=== PATIENT | female | born 1930 | race Caucasian/White ===

== ENCOUNTER 2016-12-25 13:26 | Inpatient (IN) | payer MEDICARE, BC ==
[2016-12-25] MEDS ORDERED: ACETAMINOPHEN TAB 325 MG TAB PO STA (14:19)
[2016-12-25] MEDS ORDERED: SODIUM CHLORIDE 0.9% 1,000 ML IV STA (14:19)
[2016-12-25] MEDS ORDERED: IPRATROPIUM-ALBUTEROL 3 ML NEB INHALATION STA (14:21)
[2016-12-25] MEDS ORDERED: methylPREDNISolone SOD SUCCI 125 MG/2 ML VIAL IV STA (14:21)
[2016-12-25 14:57] LABS: Appearance,Urine Cloudy (Clear); Bacteria,Urine Rare /hpf; Bilirubin,Urine Negative (Negative); Glucose,Urine (UA) Negative (Negative); Ketones,Urine 2+ (Negative); Leukocyte Esterase,Urine Large (Negative); Mucus,Urine Occasional /hpf; Nitrite,Urine Negative (Negative); Particle Count 9948; Protein,Urine 2+ (Negative); RBC,Urine 12 /hpf (0-5); Specific Gravity,Urine 1.019 (1.001-1.035); Squamous Epithelial Cell,Urine 6 /hpf (0-4); UA Billing (MACRO vs. MICRO) MICRO; Urobilinogen,Urine <2.0 mg/dL (<2.0); WBC,Urine 16 /hpf (0-5)
--- NOTE | 2016-12-25 15:03 | ED ---
Fever HPI - General Chief Complaint: Fever Stated Complaint: sore throat/cough Time Seen by Provider: 12/25/16 13:39 Source: patient, family Mode of arrival: wheelchair Limitations: no limitations - History of Present Illness Initial Comments: 86-year-old female with a past medical history of Atrial fibrillation , coronary artery disease, breast cancer, DM, HLD, HTN, pacemaker placement presenting for evaluation of fever and shortness of breath that started yesterday. She states that she was evaluated at [facility] for sore throat related a strep swab which was negative and discharged home. This morning she woke up and had worsening shortness of breath with the productive cough of yellow sputum and chest discomfort from all the coughing. She is feeling weak all over as well and her daughter states that she became very concerned and brought her to the ED for further evaluation. She had also been febrile at home although they did not take any temperature - Related Data Home Medications Medication Instructions Recorded Confirmed Montelukast [Singulair] 10 mg PO DAILY 09/01/15 12/25/16 sitaGLIPtin PHOS/metFORMIN HCL 1 tab PO BID 09/01/15 12/25/16 [Janumet 50-500 mg Tablet] Melatonin 10 mg PO HS 10/07/16 12/25/16 Benzonatate [Tessalon Perles] 100 mg PO TID PRN 12/25/16 12/25/16 Clindamycin [Cleocin] 150 mg PO QID 12/25/16 12/25/16 Previous Rx's Medication Instructions Recorded Acetaminophen Tab [Tylenol] 650 mg PO Q6HR PRN #0 tab 10/12/16 Lisinopril [Prinivil] 10 mg PO DAILY #30 tab 10/12/16 Pravastatin Sodium [Pravachol] 20 mg PO DAILY #30 tab 10/12/16 Warfarin [Coumadin] 5 mg PO DAILY #30 tab 10/12/16 Allergies Allergy/AdvReac Type Severity Reaction Status Date / Time Penicillins Allergy Swelling Verified 12/25/16 14:06 Review of Systems ROS Statement: Those systems with pertinent positive or pertinent negative responses have been documented in the HPI. ROS Other: All systems not noted in ROS Statement are negative. Constitutional: Reports: fever, chills, weakness Eyes: Denies: eye discharge, vision change ENT: Reports: throat pain. Denies: ear pain, dental pain, epistaxis Respiratory: Reports: cough, dyspnea, wheezes Cardiovascular: Reports: chest pain, dyspnea on exertion. Denies: palpitations , orthopnea, edema Gastrointestinal: Denies: abdominal pain, nausea, vomiting, diarrhea, constipation Genitourinary: Denies: urgency, dysuria Musculoskeletal: Reports: myalgia. Denies: joint swelling Skin: Denies: rash, lesions, change in color Neurological: Reports: weakness. 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 pt reports she pushes it up herself. breast ca History of Any Multi-Drug Resistant Organisms: None Reported Past Surgical History: Appendectomy, Breast Surgery, Cholecystectomy, Hysterectomy, Pacemaker Past Anesthesia/Blood Transfusion Reactions: No Reported Reaction Past Psychological History: No Psychological Hx Reported Smoking Status: Never smoker Past Alcohol Use History: None Reported Past Drug Use History: None Reported - Past Family History Father Family Medical History: Unable to Obtain Mother History Unknown: Yes General Exam Limitations: no limitations General appearance: alert, in distress Head exam: Present: atraumatic, normocephalic Eye exam: Present: normal appearance, PERRL Pupils: Absent: unequal ENT exam: Present: mucous membranes dry. Absent: mucous membranes moist Neck exam: Present: normal inspection. Absent: tenderness, meningismus Respiratory exam: Present: rhonchi, accessory muscle use, decreased breath sounds. Absent: normal lung sounds bilaterally, chest wall tenderness Cardiovascular Exam: Present: tachycardia, S3, S4 GI/Abdominal exam: Present: soft. Absent: distended, tenderness, guarding Rectal exam: Present: deferred Extremities exam: Present: normal inspection, full ROM. Absent: tenderness Back exam: Present: normal inspection, full ROM. Absent: tenderness, CVA tenderness (R) Neurological exam: Present: alert, altered, oriented X3 Course Vital Signs 12/25/16 12/25/16 12/25/16 13:32 15:13 16:57 Temperature 102.5 F H Pulse Rate 115 H 122 H 115 H Respiratory 18 20 Rate Blood Pressure 181/85 145/66 O2 Sat by Pulse 91 L 94 L Oximetry 12/25/16 17:45 Temperature 100.3 F H Pulse Rate Respiratory Rate Blood Pressure O2 Sat by Pulse Oximetry Medical Decision Making - Medical Decision Making 86-year-old female presented for evaluation of shortness of breath productive cough of yellow sputum and generalized weakness since yesterday that is progressively worsened. On physical examination she is breathing with accessory muscle use and there are audible rhonchi. She denies any history of congestive heart failure and states that her fever has been markedly elevated. Given her symptoms of productive cough, shortness of breath, fever, tachycardia , and myalgias concern for pneumonia with sepsis is very high. We'll obtain labs, EKG, chest x-ray, and provide IV fluids, breathing treatments, steroids. We'll also send blood cultures and if confirmed with chest x-ray start antibiotics. Workup significant for left lower lobe pneumonia and urinary tract infection with associated leukocytosis. The patient has an ALLERGY to penicillins and will therefore be started on levofloxacin as this is a community-acquired pneumonia and she has no risk factors for hospital-acquired pneumonia. We'll continue IV fluid resuscitation although her lactic acid is within normal limits. Patient reevaluated and had marketed improvement in heart rate, respiratory status, and temperature. Dr. Villasenor updated on the status of the patient and accepted the admission without request for consults. Admission order placed in bed request submitted. - Lab Data Result diagrams: 12/25/16 15:34 12/25/16 15:34 Lab Results 12/25/16 12/25/16 12/25/16 Range/Units 14:42 15:15 15:15 WBC (3.8-10.6) k/uL RBC (3.80-5.40) m/uL Hgb (11.4-16.0) gm/dL Hct (34.0-46.0) % MCV (80.0-100.0) fL MCH (25.0-35.0) pg MCHC (31.0-37.0) g/dL RDW (11.5-15.5) % Plt Count (150-450) k/uL Neutrophils % % Lymphocytes % % Monocytes % % Eosinophils % % Basophils % % Neutrophils # (1.3-7.7) k/uL Lymphocytes # (1.0-4.8) k/uL Monocytes # (0-1.0) k/uL Eosinophils # (0-0.7) k/uL Basophils # (0-0.2) k/uL Sodium (137-145) mmol/L Potassium (3.5-5.1) mmol/L Chloride (98-107) mmol/L Carbon Dioxide (22-30) mmol/L Anion Gap mmol/L BUN (7-17) mg/dL Creatinine (0.52-1.04) mg/dL Est GFR (MDRD) Af Amer (>60 ml/min/1.73 sqM) Est GFR (MDRD) Non-Af (>60 ml/min/1.73 sqM) Glucose (74-99) mg/dL Plasma Lactic Acid Krishan (0.7-2.0) mmol/L Calcium (8.4-10.2) mg/dL Total Bilirubin (0.2-1.3) mg/dL AST (14-36) U/L ALT (9-52) U/L Alkaline Phosphatase (38-126) U/L Troponin I (0.000-0.034) ng/mL NT-Pro-B Natriuret Pep pg/mL Total Protein (6.3-8.2) g/dL Albumin (3.5-5.0) g/dL Urine Color Yellow Urine Appearance Cloudy H (Clear) Urine pH 5.0 (5.0-8.0) Ur Specific Baldwin 1.019 (1.001-1.035) Urine Protein 2+ H (Negative) Urine Glucose (UA) Negative (Negative) Urine Ketones 2+ H (Negative) Urine Blood Moderate H (Negative) Urine Nitrate Negative (Negative) Urine Bilirubin Negative (Negative) Urine Urobilinogen <2.0 (<2.0) mg/dL Ur Leukocyte Esterase Large H (Negative) Urine RBC 12 H (0-5) /hpf Urine WBC 16 H (0-5) /hpf Ur Squamous Epith Cells 6 H (0-4) /hpf Urine Bacteria Rare H (None) /hpf Urine Mucus Occasional H (None) /hpf Influenza Type A RNA Not Detected (Not Detectd) Influenza Type B (PCR) Not Detected (Not Detectd) Group A Strep Rapid Negative (Negative) 12/25/16 12/25/16 12/25/16 Range/Units 15:34 15:34 15:34 WBC 16.2 H (3.8-10.6) k/uL RBC 4.58 (3.80-5.40) m/uL Hgb 13.7 (11.4-16.0) gm/dL Hct 41.1 (34.0-46.0) % MCV 89.8 (80.0-100.0) fL MCH 30.0 (25.0-35.0) pg MCHC 33.4 (31.0-37.0) g/dL RDW 13.8 (11.5-15.5) % Plt Count 176 (150-450) k/uL Neutrophils % 90 % Lymphocytes % 5 % Monocytes % 4 % Eosinophils % 0 % Basophils % 0 % Neutrophils # 14.5 H (1.3-7.7) k/uL Lymphocytes # 0.8 L (1.0-4.8) k/uL Monocytes # 0.7 (0-1.0) k/uL Eosinophils # 0.0 (0-0.7) k/uL Basophils # 0.1 (0-0.2) k/uL Sodium 136 L (137-145) mmol/L Potassium 4.0 (3.5-5.1) mmol/L Chloride 102 (98-107) mmol/L Carbon Dioxide 18 L (22-30) mmol/L Anion Gap 16 mmol/L BUN 19 H (7-17) mg/dL Creatinine 0.83 (0.52-1.04) mg/dL Est GFR (MDRD) Af Amer >60 (>60 ml/min/1.73 sqM) Est GFR (MDRD) Non-Af >60 (>60 ml/min/1.73 sqM) Glucose 193 H (74-99) mg/dL Plasma Lactic Acid Krishan 1.6 (0.7-2.0) mmol/L Calcium 8.7 (8.4-10.2) mg/dL Total Bilirubin 2.1 H (0.2-1.3) mg/dL AST 20 (14-36) U/L ALT 33 (9-52) U/L Alkaline Phosphatase 87 (38-126) U/L Troponin I (0.000-0.034) ng/mL NT-Pro-B Natriuret Pep pg/mL Total Protein 6.7 (6.3-8.2) g/dL Albumin 3.9 (3.5-5.0) g/dL Urine Color Urine Appearance (Clear) Urine pH (5.0-8.0) Ur Specific Baldwin (1.001-1.035) Urine Protein (Negative) Urine Glucose (UA) (Negative) Urine Ketones (Negative) Urine Blood (Negative) Urine Nitrate (Negative) Urine Bilirubin (Negative) Urine Urobilinogen (<2.0) mg/dL Ur Leukocyte Esterase (Negative) Urine RBC (0-5) /hpf Urine WBC (0-5) /hpf Ur Squamous Epith Cells (0-4) /hpf Urine Bacteria (None) /hpf Urine Mucus (None) /hpf Influenza Type A RNA (Not Detectd) Influenza Type B (PCR) (Not Detectd) Group A Strep Rapid (Negative) 12/25/16 12/25/16 Range/Units 15:34 15:34 WBC (3.8-10.6) k/uL RBC (3.80-5.40) m/uL Hgb (11.4-16.0) gm/dL Hct (34.0-46.0) % MCV (80.0-100.0) fL MCH (25.0-35.0) pg MCHC (31.0-37.0) g/dL RDW (11.5-15.5) % Plt Count (150-450) k/uL Neutrophils % % Lymphocytes % % Monocytes % % Eosinophils % % Basophils % % Neutrophils # (1.3-7.7) k/uL Lymphocytes # (1.0-4.8) k/uL Monocytes # (0-1.0) k/uL Eosinophils # (0-0.7) k/uL Basophils # (0-0.2) k/uL Sodium (137-145) mmol/L Potassium (3.5-5.1) mmol/L Chloride (98-107) mmol/L Carbon Dioxide (22-30) mmol/L Anion Gap mmol/L BUN (7-17) mg/dL Creatinine (0.52-1.04) mg/dL Est GFR (MDRD) Af Amer (>60 ml/min/1.73 sqM) Est GFR (MDRD) Non-Af (>60 ml/min/1.73 sqM) Glucose (74-99) mg/dL Plasma Lactic Acid Krishan (0.7-2.0) mmol/L Calcium (8.4-10.2) mg/dL Total Bilirubin (0.2-1.3) mg/dL AST (14-36) U/L ALT (9-52) U/L Alkaline Phosphatase (38-126) U/L Troponin I 0.015 (0.000-0.034) ng/mL NT-Pro-B Natriuret Pep 1010 pg/mL Total Protein (6.3-8.2) g/dL Albumin (3.5-5.0) g/dL Urine Color Urine Appearance (Clear) Urine pH (5.0-8.0) Ur Specific Baldwin (1.001-1.035) Urine Protein (Negative) Urine Glucose (UA) (Negative) Urine Ketones (Negative) Urine Blood (Negative) Urine Nitrate (Negative) Urine Bilirubin (Negative) Urine Urobilinogen (<2.0) mg/dL Ur Leukocyte Esterase (Negative) Urine RBC (0-5) /hpf Urine WBC (0-5) /hpf Ur Squamous Epith Cells (0-4) /hpf Urine Bacteria (None) /hpf Urine Mucus (None) /hpf Influenza Type A RNA (Not Detectd) Influenza Type B (PCR) (Not Detectd) Group A Strep Rapid (Negative) 12/25/16 15:25 EKG shows a 2 fibrillation with RVR and a rate of 113 bpm, QRS 68, QT/QTC 292/ 400. Disposition Clinical Impression: Community acquired pneumonia, UTI (urinary tract infection), Hyponatremia Disposition: ADMITTED IP TO THIS [facility] Referrals: To Sibley MD [Primary Care Provider] - 1-2 days Decision to Admit Reason: Admit from EC Decision Date: 12/25/16 Decision Time: 17:33
[2016-12-25 15:49] LABS: Basophils # (A) 0.1 k/uL (0-0.2); Basophils % (A) 0 %; CH 30.5; CHCM 34.2; Eosinophils % (A) 0 %; HCT 41.1 % (34.0-46.0); HDW 2.81; HGB 13.7 gm/dL (11.4-16.0); Luc # (Auto) 0.13; Luc % (Auto) 1; Lymphocytes # (A) 0.8 k/uL (1.0-4.8); Lymphocytes % (A) 5 %; MCHC 33.4 g/dL (31.0-37.0); MCV 89.8 fL (80.0-100.0); Mean Platelet Volume 8.7; Monocytes # (A) 0.7 k/uL (0-1.0); Monocytes % (A) 4 %; Neutrophils # (A) 14.5 k/uL (1.3-7.7); Neutrophils % (A) 90 %; RBC 4.58 m/uL (3.80-5.40); RDW 13.8 % (11.5-15.5); WBC 16.2 k/uL (3.8-10.6); WBC (Perox) 17.27
[2016-12-25 16:10] LABS: ALT 33 U/L (9-52); AST 20 U/L (14-36); Alkaline Phosphatase 87 U/L (38-126); Anion Gap 16 mmol/L; Blood Urea Nitrogen 19 mg/dL (7-17); Calcium 8.7 mg/dL (8.4-10.2); Carbon Dioxide 18 mmol/L (22-30); Chloride 102 mmol/L (98-107); Glucose 193 mg/dL (74-99); Non-African American GFR(MDRD) >60 (>60 ml/min/1.73 sqM); Sodium 136 mmol/L (137-145); Total Bilirubin 2.1 mg/dL (0.2-1.3); Total Protein 6.7 g/dL (6.3-8.2)
--- NOTE | 2016-12-25 16:14 | XR ---
EXAMINATION TYPE: XR chest 2V DATE OF EXAM: 12/25/2016 4:05 PM COMPARISON: 10/11/2016 HISTORY: Fever and shortness of breath TECHNIQUE: Frontal and lateral views of the chest are obtained. FINDINGS: Heart is enlarged. There is no gross heart failure. There is probably infiltrate in the le ft lower lobe behind the heart. Left axillary pacemaker is noted. There is no pleural effusion. There are no hilar masses. Thoracic aorta is atheromatous. IMPRESSION: No gross heart failure. Cardiomegaly. There is improved aeration of the lungs overall co mpared to last exam but evidence of a new mild pneumonia in the left lower lobe compared to old exam.
[2016-12-25] MEDS ORDERED: IV VANCOMYCIN PER PHARMACY 1 EACH MISC MISCELLANE PRN (16:23)
[2016-12-25] MEDS ORDERED: AZTREONAM 2 GM in SODIUM CHLORIDE 0.9% 100 ML IVPB STA (16:24)
[2016-12-25] MEDS ORDERED: LEVOFLOXACIN 750MG-D5W PMX 750 MG in DEXTROSE/WATER 1 150ML.BAG IVPB STA (16:28)
[2016-12-25] MEDS ORDERED: ONDANSETRON 4 MG/2 ML VIAL IVP PRN (16:35)
[2016-12-25] MEDS ORDERED: NALOXONE 0.4 MG/ML 1 ML VIAL IV PRN (16:35)
[2016-12-25] MEDS ORDERED: KETOROLAC 30 MG/ML 1 ML VIAL IVP PRN (16:35)
[2016-12-25] MEDS: SODIUM CHLORIDE 0.9% 1,000 ML IV SCH (16:57)
[2016-12-25] MEDS: MELATONIN 5 MG TABLET PO SCH (22:43)
[2016-12-25 23:43] LABS: Glucose,Whole Blood 233 mg/dL (75-99)
[2016-12-25] MEDS: INSULIN LISPRO (humaLOG) 300 UNIT/3 ML VIAL SQ SCH (23:52)
[2016-12-26] MEDS: ACETAMINOPHEN TAB 325 MG TAB PO PRN (05:02)
[2016-12-26] MEDS: SODIUM CHLORIDE 0.9% 1,000 ML IV SCH ×2 (05:03→08:16)
[2016-12-26 06:22] LABS: Glucose,Whole Blood 189 mg/dL (75-99)
[2016-12-26] MEDS: metFORMIN 500 MG TAB PO SCH ×2 (06:35→17:09)
[2016-12-26] MEDS: INSULIN LISPRO (humaLOG) 300 UNIT/3 ML VIAL SQ SCH ×4 (06:35→21:01)
[2016-12-26 06:42] LABS: CH 30.5; CHCM 34.2; HCT 39.2 % (34.0-46.0); HDW 2.81; HGB 12.8 gm/dL (11.4-16.0); Immature Gran Flag Marked; MCH 29.3 pg (25.0-35.0); MCHC 32.6 g/dL (31.0-37.0); MCV 89.8 fL (80.0-100.0); Mean Platelet Volume 9.7; RBC 4.37 m/uL (3.80-5.40); RDW 13.8 % (11.5-15.5); WBC (Perox) 13.94
[2016-12-26 06:57] LABS: Anion Gap 14 mmol/L; Blood Urea Nitrogen 17 mg/dL (7-17); Calcium 8.6 mg/dL (8.4-10.2); Carbon Dioxide 19 mmol/L (22-30); Chloride 107 mmol/L (98-107); Glucose 201 mg/dL (74-99); Magnesium 1.5 mg/dL (1.6-2.3); Non-African American GFR(MDRD) >60 (>60 ml/min/1.73 sqM); Phosphorous 2.6 mg/dL (2.5-4.5); Sodium 140 mmol/L (137-145)
[2016-12-26 07:09] LABS: INR 4.9 (<1.1); Prothrombin Time 48.9 sec (9.0-12.0)
--- NOTE | 2016-12-26 08:01 | XR ---
EXAMINATION TYPE: XR chest 2V DATE OF EXAM: 12/26/2016 7:06 AM COMPARISON: 12/25/2016 HISTORY: Cough and congestion FINDINGS: Cardiomegaly and cardiac device with atherosclerotic change aorta. There is a 1 cm area of pulmonary nodularity in today's exam which may be related to superimposed structures given not seen on the exam yesterday. Follow up on short-term x-ray. No priors be subsegmental changes along the medial aspect right lung base. IMPRESSION: 1. COPD cardiomegaly with subsegmental basilar changes. Atelectasis is favored over pneumonia correla te clinically. 2. There appears to be a 1 cm irregular nodule adjacent to the right chest lead. This was not present on yesterday's exam and May BE related to superimposed structures or related to chest lesion. Anne talavera, follow-up PA and lateral views the chest recommended.
[2016-12-26] MEDS: PRAVASTATIN SODIUM 20 MG TAB PO SCH (08:16)
[2016-12-26] MEDS: LINAGLIPTIN 5 MG TABLET PO SCH (08:16)
[2016-12-26] MEDS: MONTELUKAST 10 MG TAB PO SCH (08:16)
[2016-12-26] MEDS: LISINOPRIL 10 MG TAB PO SCH (08:16)
[2016-12-26] MEDS ORDERED: FUROSEMIDE 10 MG/ML 4 ML VIAL IV STA (08:28)
[2016-12-26] MEDS ORDERED: Magnesium Replacement Protocol 1 EACH MISC MISCELLANE PRN (08:29)
[2016-12-26] MEDS: MAGNESIUM SULFATE-D5W PMX 1 GM in DEXTROSE/WATER 1 100ML.BAG IVPB SCH ×2 (10:07→11:15)
[2016-12-26 10:43] LABS: Add Differential Manual Differential
[2016-12-26 10:46] LABS: Band Neutrophils % 19.5 %; Nucleated Red Blood Cells 0 /100 WBC (0-0); RBC Morphology Normal; Total Cells Counted 200
[2016-12-26] MEDS: IPRATROPIUM-ALBUTEROL 3 ML NEB INHALATION SCH ×4 (11:39→23:43)
[2016-12-26 12:07] LABS: Glucose,Whole Blood 184 mg/dL (75-99)
[2016-12-26 12:45] LABS: Hemoglobin A1C 6.1 % (4.2-6.1)
[2016-12-26] MEDS: LEVOFLOXACIN 750MG-D5W PMX 750 MG in DEXTROSE/WATER 1 150ML.BAG IVPB SCH (16:05)
[2016-12-26 17:04] LABS: Glucose,Whole Blood 173 mg/dL (75-99)
[2016-12-26] MEDS ORDERED: RX INFO: IV CONTRAST WAS GIVEN 1 EACH MISC MISCELLANE PRN (19:31)
--- NOTE | 2016-12-26 20:12 | CT ---
EXAMINATION TYPE: CT chest w con DATE OF EXAM: 12/26/2016 8:03 PM COMPARISON: NONE HISTORY: Patient complains of difficulty breathing, pneumonia, and productive cough. CT DLP: 135.5 mGycm Automated exposure control for dose reduction was used. CONTRAST: CT scan of the chest is performed with IV Contrast, patient injected with 100 mL of Omnipaque 300. FINDINGS: There is patchy interstitial infiltrate in the mid and lower lung monzon. There is some coalescent in filtrate at the posterior lung bases. There is no pleural effusion. There is no evidence of a pulmona ry mass. The heart is enlarged. Thoracic aorta is atheromatous. There are no hilar masses. There is n o mediastinal adenopathy. There is no pericardial effusion. There is probably a small hiatal hernia. I see no filling defect in the pulmonary arteries. There is no evidence of aortic aneurysm. There is 10% wedging of T4 vertebra that is probably old. IMPRESSION: Cardiomegaly. Patchy pneumonic infiltrates in the mid and lower lung monzon and worse at the lung bases are consistent with pneumonia. I do not see pleural fluid to suggest heart failure. A therosclerotic vascular disease.
[2016-12-26] MEDS: MELATONIN 5 MG TABLET PO SCH (20:39)
[2016-12-26] MEDS: FUROSEMIDE 10 MG/ML 2 ML VIAL IV SCH (20:41)
[2016-12-26] MEDS: methylPREDNISolone SOD SUCCI 40 MG/ML 1 ML VIAL IV SCH (20:41)
[2016-12-26 21:01] LABS: Glucose,Whole Blood 95 mg/dL (75-99)
[2016-12-27] MEDS: IPRATROPIUM-ALBUTEROL 3 ML NEB INHALATION SCH ×5 (03:36→21:27)
[2016-12-27 03:47] LABS: INR 3.6 (<1.1); Prothrombin Time 34.9 sec (9.0-12.0)
[2016-12-27 03:50] LABS: Calcium 9.1 mg/dL (8.4-10.2); Magnesium 1.9 mg/dL (1.6-2.3); Potassium 3.9 mmol/L (3.5-5.1); Total Bilirubin 1.9 mg/dL (0.2-1.3); Total Protein 6.5 g/dL (6.3-8.2)
[2016-12-27 03:53] LABS: Basophils % (A) 0 %; CH 29.9; CHCM 33.1; Eosinophils % (A) 0 %; HCT 39.6 % (34.0-46.0); HDW 2.67; HGB 12.9 gm/dL (11.4-16.0); Luc # (Auto) 0.07; Luc % (Auto) 1; Lymphocytes # (A) 0.2 k/uL (1.0-4.8); Lymphocytes % (A) 2 %; MCH 29.6 pg (25.0-35.0); MCHC 32.5 g/dL (31.0-37.0); MCV 90.8 fL (80.0-100.0); Mean Platelet Volume 9.1; Monocytes # (A) 0.4 k/uL (0-1.0); Monocytes % (A) 4 %; Neutrophils # (A) 10.7 k/uL (1.3-7.7); Neutrophils % (A) 93 %; RBC 4.36 m/uL (3.80-5.40); RDW 13.7 % (11.5-15.5); WBC 11.5 k/uL (3.8-10.6); WBC (Perox) 11.55
[2016-12-27] MEDS ORDERED: VERAPAMIL 40 MG TAB PO STA (05:05)
[2016-12-27] MEDS ORDERED: VERAPAMIL SR 120 MG TABLET.ER PO STA (05:12)
[2016-12-27] MEDS ORDERED: DILTIAZEM 125 MG in SODIUM CHLORIDE 0.9% 100 ML IV SCH (05:15)
[2016-12-27] MEDS: metFORMIN 500 MG TAB PO SCH ×2 (06:13→17:08)
[2016-12-27] MEDS: INSULIN LISPRO (humaLOG) 300 UNIT/3 ML VIAL SQ SCH ×4 (06:13→21:37)
[2016-12-27 06:30] LABS: Glucose,Whole Blood 243 mg/dL (75-99)
[2016-12-27] MEDS ORDERED: AZITHROMYCIN 500 MG in SODIUM CHLORIDE 0.9% 250 ML IVPB SCH (09:00)
--- NOTE | 2016-12-27 09:16 | HP ---
DATE OF ADMISSION: 12/25/16. CHIEF COMPLAINT: 86 year old white female with fever, sore throat, cough, shortness of breath and urinary tract infection. HISTORY OF PRESENT ILLNESS: This an 86-year-old female with a past medical history of atrial fibrillation, coronary disease, breast cancer, diabetes mellitus, hypertension, pacemaker placement, presenting with evaluation of fever, shortness of breath, saw [facility] sent home on antibiotics. She came in shortness of breath with yellow sputum and coughing, suspect severe pneumonia and chronic obstructive pulmonary disease exacerbation. Also found to have abnormal UA and has a urinary tract infection. MEDICATIONS INCLUDE: Singulair 10 mg daily. Janumet 50/500 b.i.d., melatonin 10 daily. Tessalon Perles t.i.d., Cleocin 150 q.i.d. Prinivil 10 mg daily. Pravastatin 20 daily. Coumadin 5 daily. Acetaminophen 650 q 6 hours p.r.n. ALLERGIES: PENICILLIN. REVIEW OF SYSTEMS: Negative except for cough and congestion, shortness of breath. VASCULAR: Negative. IMMUNE: Negative. INTEGUMENT: Negative. : As mentioned, dysuria, frequency, urgency. HEMATOLOGIC: Negative. Immune: Negative. PAST MEDICAL HISTORY: Atrial fibrillation, coronary artery disease, cancer, diabetes mellitus, dyslipidemia, hypertension, prolapse of the vagina, history of breast cancer. SURGERY: Appendectomy. Breast surgery, cholecystectomy, hysterectomy, pacemaker. FAMILY HISTORY: Father difficult to obtain. Mother is negative. PHYSICAL EXAMINATION: She is an 86-year-old white female temperature 102.5, pulse is 115 to 122 respiratory rate 18 to 20, and blood pressure 140s to 180s/60s to 80s. O2 of 94 to 91% on 2 liters. HEENT: Normocephalic, atraumatic. Ophthalmologic: Pupils equal, round and reactive to light and accommodation. NECK: Normal inspection. RESPIRATORY: Scattered rhonchi and wheeze. Moderate accessory muscle use, audible congestion in her throat. . HEART: Tachycardia, S1, S2, No S3, S4. GI: Soft. Mild tenderness in the lower quadrants. No mass no guarding. BACK: Normal range of motion, kyphotic lordotic spine, CVA tenderness in the right. NEUROLOGIC: Alert and oriented x3. MUSCULOSKELETAL: Ambulating to the bathroom . DIAGNOSIS: 1. Suspect acute chronic obstructive pulmonary disease exacerbation. 2. Acute tracheobronchitis. 3. Possible acute exacerbation diastolic congestive heart failure. 4. Echo and CAT scan of the chest have been ordered, pneumonia with sepsis is a likely diagnosis. 5. Urinary tract infection. 6. Hyponatremia. IV fluids IV steroids, IV antibiotics. CAT scan of the chest ordered, updrafts are ordered, cardiology consult is pending.
[2016-12-27] MEDS: MONTELUKAST 10 MG TAB PO SCH (09:27)
[2016-12-27] MEDS: LISINOPRIL 10 MG TAB PO SCH (09:27)
[2016-12-27] MEDS: PRAVASTATIN SODIUM 20 MG TAB PO SCH (09:27)
[2016-12-27] MEDS: LINAGLIPTIN 5 MG TABLET PO SCH (09:28)
[2016-12-27] MEDS: methylPREDNISolone SOD SUCCI 40 MG/ML 1 ML VIAL IV SCH ×2 (09:28→17:08)
[2016-12-27] MEDS: FUROSEMIDE 10 MG/ML 2 ML VIAL IV SCH (09:28)
--- NOTE | 2016-12-27 10:45 | P.CRDCN ---
<Adali Salvdaor E - Last Filed: 12/27/16 10:45> History of Present Illness Consult date: 12/27/16 Requesting physician: To Sibley Consult reason: atrial fibrillation Chief complaint: Shortness of breath and cough History of present illness: This is a pleasant 86-year-old female who follows regularly with Dr. Juarez in the office. She has a known history of hypertension, hyperlipidemia, diabetes, chronic persistent atrial fibrillation, on Coumadin for anticoagulation, asthma, he presented to the hospital with symptoms of shortness of breath with associated productive cough of yellow sputum. Currently being treated for tracheobronchitis and possible pneumonia. Cardiology consultation was requested because of atrial fibrillation. EKG on arrival showed atrial fibrillation with a rapid ventricular response. Chest x- ray did not reveal any evidence of congestive heart failure. There is evidence of a new mild pneumonia in the left lower lobe. Patient was initiated on IV Cardizem in the emergency room, she is also currently on IV antibiotics. Laboratory data, WBC on admission 16.2, INR on admission 4.9, 3.6 this morning. D-dimer elevated at 1.9, CT of the chest negative for PE. Sodium 136, potassium 4.0, BUN 19, creatinine 0.8. Magnesium level I.5, 1.9 this morning. Troponin 0.015, BNP level 1010. Temperature 100.3 on admission. At the time of my examination this morning, patient states overall she feels well, she continues to cough up significant amount of yellow sputum. Past Medical History Past Medical History: Atrial Fibrillation, Coronary Artery Disease (CAD), Cancer , Diabetes Mellitus, Hyperlipidemia, Hypertension Additional Past Medical History / Comment(s): hx prolapse from vagina. pt reports she pushes it up herself. breast ca History of Any Multi-Drug Resistant Organisms: None Reported Past Surgical History: Appendectomy, Breast Surgery, Cholecystectomy, Hysterectomy, Pacemaker Past Anesthesia/Blood Transfusion Reactions: No Reported Reaction Past Psychological History: No Psychological Hx Reported Smoking Status: Never smoker Past Alcohol Use History: None Reported Past Drug Use History: None Reported - Past Family History Father Family Medical History: Unable to Obtain Mother History Unknown: Yes Medications and Allergies Home Medications Medication Instructions Recorded Confirmed Type RX: Montelukast [Singulair] 10 mg PO DAILY 09/01/15 12/25/16 History RX: sitaGLIPtin PHOS/metFORMIN HCL 1 tab PO BID 09/01/15 12/25/16 History [Janumet 50-500 mg Tablet] RX: Melatonin 10 mg PO HS 10/07/16 12/25/16 History Benzonatate [Tessalon Perles] 100 mg PO TID PRN 12/25/16 12/25/16 History Clindamycin [Cleocin] 150 mg PO QID 12/25/16 12/25/16 History Allergies Allergy/AdvReac Type Severity Reaction Status Date / Time Penicillins Allergy Swelling Verified 12/25/16 14:06 Physical Exam Vitals: Vital Signs Temp Pulse Pulse Resp BP Pulse Ox 12/27/16 08:34 100 12/27/16 08:24 100 12/27/16 03:49 114 H 12/27/16 03:36 110 H 12/27/16 03:20 97.6 F 120 H 19 137/59 94 L 12/27/16 00:00 98.0 F 107 H 18 105/57 95 12/26/16 23:51 116 H 12/26/16 23:44 112 H 12/26/16 20:41 102 H 12/26/16 20:28 102 H 12/26/16 20:00 98.0 F 120 H 19 136/72 92 L 12/26/16 16:23 100 12/26/16 16:10 100 12/26/16 15:34 97.1 F L 94 18 142/60 94 L 12/26/16 11:53 104 H 12/26/16 11:39 100 12/26/16 11:15 97 F L 98 18 136/86 93 L Intake and Output 12/26/16 12/27/16 12/27/16 22:59 06:59 14:59 Intake Total 180 236 Output Total 800 800 Balance -620 -800 236 Intake: Oral 180 236 Output: Urine 800 800 Other: Voiding Method Toilet Toilet Bedpan Bedpan Weight 54.5 kg PHYSICAL EXAMINATION: HEENT: Head is atraumatic, normocephalic. Pupils equal, round. Neck is supple. There is no elevated jugular venous pressure. HEART EXAMINATION: Heart S1 and S2 irregular irregular systolic murmur is heard. CHEST EXAMINATION: Lungs reveal scattered coarse rhonchi throughout. ABDOMEN: Soft, nontender. Bowel sounds are heard. No organomegaly noted. EXTREMITIES: 2+ peripheral pulses with no evidence of peripheral edema and no calf tenderness noted. NEUROLOGIC patient is awake, alert and oriented -3. . Results 12/27/16 03:21 12/27/16 03:21 Cardiac Enzymes 12/27/16 Range/Units 03:21 AST 35 (14-36) U/L Coagulation 12/27/16 Range/Units 03:21 PT 34.9 H (9.0-12.0) sec CBC 12/26/16 12/27/16 Range/Units 05:58 03:21 WBC 14.0 H 11.5 H (3.8-10.6) k/uL RBC 4.37 4.36 (3.80-5.40) m/uL Hgb 12.8 12.9 (11.4-16.0) gm/dL Hct 39.2 39.6 (34.0-46.0) % Plt Count 160 167 (150-450) k/uL Comprehensive Metabolic Panel 12/27/16 Range/Units 03:21 Sodium 138 (137-145) mmol/L Potassium 3.9 (3.5-5.1) mmol/L Chloride 104 (98-107) mmol/L Carbon Dioxide 16 L (22-30) mmol/L BUN 31 H (7-17) mg/dL Creatinine 1.10 H (0.52-1.04) mg/dL Glucose 223 H (74-99) mg/dL Calcium 9.1 (8.4-10.2) mg/dL AST 35 (14-36) U/L ALT 38 (9-52) U/L Alkaline Phosphatase 68 (38-126) U/L Total Protein 6.5 (6.3-8.2) g/dL Albumin 3.8 (3.5-5.0) g/dL Current Medications Generic Name Dose Route Start Last Admin Trade Name Freq PRN Reason Stop Dose Admin Acetaminophen 650 mg 12/25/16 16:35 12/26/16 05:02 Tylenol Tab PO 650 mg Q6HR PRN Administration Mild Pain or Fever > 100.5 Albuterol/Ipratropium 3 ml 12/26/16 12:00 12/27/16 08:24 Duoneb 0.5 Mg-3 Mg/3 Ml Soln INHALATION 3 ml RT-Q4H CLAUDIA Administration Furosemide 20 mg 12/26/16 20:15 12/27/16 09:28 Lasix IV 20 mg DAILY CLAUDIA Administration Levofloxacin 750 mg/ IV 150 mls @ 100 mls/hr 12/26/16 16:00 12/26/16 16:05 Solution IVPB 100 mls/hr Q24H CLAUDIA Administration Diltiazem HCl 125 mg/ Sodium 125 mls @ 10 mls/hr 12/27/16 05:15 12/27/16 05: 29 Chloride IV 10 mg/hr .[id number] CLAUDIA 10 mls/hr 10 MG/HR Administration Insulin Human Lispro 0 unit 12/26/16 07:30 12/27/16 06:13 Humalog SQ 8 unit ACHS CLAUDIA Administration Protocol Ketorolac Tromethamine 30 mg 12/25/16 16:35 Toradol IVP 12/30/16 16:36 Q6HR PRN Moderate Pain Linagliptin 5 mg 12/26/16 09:00 12/27/16 09:28 Tradjenta PO 5 mg DAILY CLAUDIA Administration Lisinopril 10 mg 12/26/16 09:00 12/27/16 09:27 Zestril PO 10 mg DAILY CLAUDIA Administration Melatonin 10 mg 12/25/16 21:00 12/26/16 20:39 Melatonin PO 10 mg HS CLAUDIA Administration Metformin HCl 500 mg 12/26/16 07:30 12/27/16 06:13 Glucophage PO 500 mg AC-BID CLAUDIA Administration Methylprednisolone Sodium Succinate 40 mg 12/26/16 21:00 12/27/16 09:28 Solu-Medrol IV 40 mg Q8HR CLAUDIA Administration Miscellaneous Information 1 each 12/26/16 08:29 Magnesium Per Protocol MISCELLANE DAILY PRN Per Protocol Protocol Miscellaneous Information 1 each 12/26/16 19:31 Rx Info: Iv Contrast Was Given MISCELLANE 12/28/16 19:32 DAILY PRN Per Protocol Montelukast Sodium 10 mg 12/26/16 09:00 12/27/16 09:27 Singulair PO 10 mg DAILY CLAUDIA Administration Naloxone HCl 0.2 mg 12/25/16 16:35 Narcan IV Q2M PRN Opioid Reversal Ondansetron HCl 4 mg 12/25/16 16:35 Zofran IVP Q8HR PRN Nausea And Vomiting Pravastatin Sodium 20 mg 12/26/16 09:00 12/27/16 09:27 Pravachol PO 20 mg DAILY CLAUDIA Administration Verapamil HCl 120 mg 12/28/16 09:00 Isoptin Sr PO DAILY CLAUDIA Warfarin Sodium 5 mg 12/26/16 18:00 Coumadin PO DAILY@1800 CLAUDIA Intake and Output 12/26/16 12/27/16 12/27/16 22:59 06:59 14:59 Intake Total 180 236 Output Total 800 800 Balance -620 -800 236 Intake: Oral 180 236 Output: Urine 800 800 Other: Voiding Method Toilet Toilet Bedpan Bedpan Weight 54.5 kg 12/27/16 03:21 12/27/16 03:21 EKG Interpretations (text) EKG shows atrial fibrillation with a rapid ventricular response Assessment and Plan Plan: Assessment and plan #1 symptoms of shortness of breath with associated productive cough of yellow sputum and low-grade fever, suggestive of tracheobronchitis for possible pneumonia. Patient is currently on IV antibiotics. Chest x-ray does not reveal evidence of congestive cardiac failure but does reveal evidence of a new left lower lobe pneumonia. #2 chronic persistent atrial fibrillation, on Coumadin, INR 4.9 on admission. Coumadin currently on hold. #3 hypertension #4 diabetes #5 hyperlipidemia #6 asthma Plan Obtain an echocardiogram with Doppler study. Patient's most recent echocardiogram with Doppler study was performed in September of last year which revealed an ejection fraction of 50-55%, mild aortic stenosis and mild to moderate mitral regurgitation with moderate pulmonary hypertension. Continue to hold Coumadin. Monitor daily INRs. Patient was taking atenolol at home, which we will resume, discontinue IV Cardizem drip. Discontinue IV Lasix. DNP note has been reviewed, I agree with a documented findings and plan of care. Patient was seen and examined. <Michael Snow - Last Filed: 12/27/16 12:33> Physical Exam Vitals: Vital Signs Temp Pulse Pulse Resp BP Pulse Ox 12/27/16 12:02 98 12/27/16 11:50 98.5 F 97 20 123/84 96 12/27/16 11:49 96 12/27/16 08:34 100 12/27/16 08:24 100 12/27/16 08:00 98.5 F 79 20 123/58 94 L 12/27/16 03:49 114 H 12/27/16 03:36 110 H 12/27/16 03:20 97.6 F 120 H 19 137/59 94 L 12/27/16 00:00 98.0 F 107 H 18 105/57 95 12/26/16 23:51 116 H 12/26/16 23:44 112 H 12/26/16 20:41 102 H 12/26/16 20:28 102 H 12/26/16 20:00 98.0 F 120 H 19 136/72 92 L 12/26/16 16:23 100 12/26/16 16:10 100 12/26/16 15:34 97.1 F L 94 18 142/60 94 L Intake and Output 12/26/16 12/27/16 12/27/16 22:59 06:59 14:59 Intake Total 180 236 Output Total 800 800 Balance -620 -800 236 Intake: Oral 180 236 Output: Urine 800 800 Other: Voiding Method Toilet Toilet Bedpan Bedpan Weight 54.5 kg Results 12/27/16 03:21 12/27/16 03:21 Cardiac Enzymes 12/27/16 Range/Units 03:21 AST 35 (14-36) U/L Coagulation 12/27/16 Range/Units 03:21 PT 34.9 H (9.0-12.0) sec CBC 12/27/16 Range/Units 03:21 WBC 11.5 H (3.8-10.6) k/uL RBC 4.36 (3.80-5.40) m/uL Hgb 12.9 (11.4-16.0) gm/dL Hct 39.6 (34.0-46.0) % Plt Count 167 (150-450) k/uL Comprehensive Metabolic Panel 12/27/16 Range/Units 03:21 Sodium 138 (137-145) mmol/L Potassium 3.9 (3.5-5.1) mmol/L Chloride 104 (98-107) mmol/L Carbon Dioxide 16 L (22-30) mmol/L BUN 31 H (7-17) mg/dL Creatinine 1.10 H (0.52-1.04) mg/dL Glucose 223 H (74-99) mg/dL Calcium 9.1 (8.4-10.2) mg/dL AST 35 (14-36) U/L ALT 38 (9-52) U/L Alkaline Phosphatase 68 (38-126) U/L Total Protein 6.5 (6.3-8.2) g/dL Albumin 3.8 (3.5-5.0) g/dL Current Medications Generic Name Dose Route Start Last Admin Trade Name Freq PRN Reason Stop Dose Admin Acetaminophen 650 mg 12/25/16 16:35 12/26/16 05:02 Tylenol Tab PO 650 mg Q6HR PRN Administration Mild Pain or Fever > 100.5 Albuterol/Ipratropium 3 ml 12/26/16 12:00 12/27/16 11:49 Duoneb 0.5 Mg-3 Mg/3 Ml Soln INHALATION 3 ml RT-Q4H CLAUDIA Administration Atenolol 50 mg 12/27/16 11:00 12/27/16 12:09 Tenormin PO 50 mg DAILY CLAUDIA Administration Levofloxacin 750 mg/ IV 150 mls @ 100 mls/hr 12/26/16 16:00 12/26/16 16:05 Solution IVPB 100 mls/hr Q24H CLAUDIA Administration Insulin Human Lispro 0 unit 12/26/16 07:30 12/27/16 12:09 Humalog SQ 2 unit ACHS CLAUDIA Administration Protocol Ketorolac Tromethamine 30 mg 12/25/16 16:35 Toradol IVP 12/30/16 16:36 Q6HR PRN Moderate Pain Linagliptin 5 mg 12/26/16 09:00 12/27/16 09:28 Tradjenta PO 5 mg DAILY CLAUDIA Administration Lisinopril 10 mg 12/26/16 09:00 12/27/16 09:27 Zestril PO 10 mg DAILY CLAUDIA Administration Melatonin 10 mg 12/25/16 21:00 12/26/16 20:39 Melatonin PO 10 mg HS CLAUDIA Administration Metformin HCl 500 mg 12/26/16 07:30 12/27/16 06:13 Glucophage PO 500 mg AC-BID CLAUDIA Administration Methylprednisolone Sodium Succinate 40 mg 12/26/16 21:00 12/27/16 09:28 Solu-Medrol IV 40 mg Q8HR CLAUDIA Administration Miscellaneous Information 1 each 12/26/16 08:29 Magnesium Per Protocol MISCELLANE DAILY PRN Per Protocol Protocol Miscellaneous Information 1 each 12/26/16 19:31 Rx Info: Iv Contrast Was Given MISCELLANE 12/28/16 19:32 DAILY PRN Per Protocol Montelukast Sodium 10 mg 12/26/16 09:00 12/27/16 09:27 Singulair PO 10 mg DAILY CLAUDIA Administration Naloxone HCl 0.2 mg 12/25/16 16:35 Narcan IV Q2M PRN Opioid Reversal Ondansetron HCl 4 mg 12/25/16 16:35 Zofran IVP Q8HR PRN Nausea And Vomiting Pravastatin Sodium 20 mg 12/26/16 09:00 12/27/16 09:27 Pravachol PO 20 mg DAILY CLAUDIA Administration Warfarin Sodium 5 mg 12/26/16 18:00 Coumadin PO DAILY@1800 CLAUDIA Intake and Output 12/26/16 12/27/16 12/27/16 22:59 06:59 14:59 Intake Total 180 236 Output Total 800 800 Balance -620 -800 236 Intake: Oral 180 236 Output: Urine 800 800 Other: Voiding Method Toilet Toilet Bedpan Bedpan Weight 54.5 kg 12/27/16 03:21 12/27/16 03:21
[2016-12-27 12:01] LABS: Glucose,Whole Blood 152 mg/dL (75-99)
[2016-12-27] MEDS: ATENOLOL 50 MG TAB PO SCH (12:09)
--- NOTE | 2016-12-27 14:16 | CDI ---
In responding to this query, please exercise your independent professional judgment. The [facility] Coding Staff and Clinical Documentation Specialists appreciate your assistance in clarifying documentation, maintaining compliance with coding guidelines, accurately documenting patients condition and capturing severity of illness. The fact that a question is asked does not imply that any particular answer is desired or expected. Communication forms are a method of clarifying documentation and are not made part of the Legal Health Record. Thank you in advance for your clarification. Last Revision, January 2016 Felicita Mesa [address] [place] [address] Documentation Clarification Form Date: 12/27/2016 2:02:00 PM From: Kali Piper, RN, BSN, CDI Admit Date: 12/25/2016 4:35:00 PM Patient Name: Becca Quiñones Visit Number: [id number] Dr. To Sibley: The patient presented with the following respiratory symptoms: shortness of breath and cough Documentation and location in medical record included: "symptoms of SOB" per cardiology consult History/Risk Factors: 86 yo female with a history of CAD, Afib, suspected COPD, DM and HTN with c/o fever, SOB, cough and weakness. Being treated for suspected AECOPD, acute tracheobronchitis, PNA w/sepsis Tobacco use: never Home oxygen: none Clinical Indicators: Vital signs/Pulse oximetry: Spo2: 91-93% 4L, RR: 20-36 (noted by nursing to be short of breath, labored with accessory muscle use) Lung/Breathing assessment: Per ED report: "+rhonchi with accessory muscle use", Per H&P "scattered rhonchi and wheeze, moderate accessory muscle use, audible congestion in her throat". Treatment: Levaquin Breathing tx: duonebs Continuous Pulse ox O2 @ 4L NC Pulmonary consult is pending In your professional opinion, can you please clarify if these findings signify one of the following conditions? Acuity: o Acute o Chronic o Acute on Chronic Respiratory Status: o Respiratory failure o Respiratory failure with hypercapnia o Respiratory failure with hypoxia o Acute Respiratory Distress o Other Diagnosis, please specify o Unable to determine Please document in your progress notes and discharge summary in order to capture severity of illness and risk of mortality. Include clinical findings that support your diagnosis. FYI: Press F11 to launch patient chart. Place X here if this finding has no clinical significance, is not applicable or if you are not able to provide any additional documentation. MTDD
--- NOTE | 2016-12-27 14:55 | P.PN ---
Subjective 86-year-old female being seen on rounds with the attending this morning did note the patient did have ectopy last night around 2 in the morning and 19 beat nonsustained V. tach. Currently is in atrial fibrillation. Currently has IV Cardizem drip infusing. Patient currently is pleasant oriented 3 denying shortness breath denying chest pain. Patient initial presentation to the emergency room shortness of breath and coughing up yellowish secretions. Computed tomography scan of the chest showed infiltrate in the mid and lower lung monzon consistent with pneumonia patient currently is receiving IV Solu-Medrol and IV Levaquin cardiology and pulmonology or participating in the plan of care recommendations noted appreciated and reviewed Objective - Vital Signs Vital signs: Vital Signs Temp 98.5 F 12/27/16 11:50 Pulse 98 12/27/16 12:02 Resp 20 12/27/16 11:50 BP 123/84 12/27/16 11:50 Pulse Ox 96 12/27/16 11:50 Intake & Output 12/26/16 12/27/16 12/27/16 18:59 06:59 18:59 Intake Total 460 180 436 Output Total 1850 1600 Balance -1390 -1420 436 Weight 54.5 kg Intake: IV 100 Magnesium Sulfate-D5w Pmx 100 1 gm In Dextrose/Water 1 100ml.bag @ 100 mls/hr IVPB Q1H [facility] Rx#: [id number] Oral 360 180 436 Output: Urine 1850 1600 Other: Voiding Method Toilet Toilet Bedpan Bedpan # Voids 2 - Exam Physical exam 86-year-old female sitting up in a chair does not appear in any acute distress denying dizziness lightheadedness or chest pain Lungs coarse rhonchi throughout with bilateral audible wheezing noted sats on 2 L 96% no cough noted Heart S1-S2 audible irregular monitor A. fib Abdomen soft nontender reports no nausea vomiting Extremities no edema noted - Labs CBC & Chem 7: 12/27/16 03:21 12/27/16 03:21 Labs: Abnormal Lab Results - Last 24 Hours (Table) 12/26/16 12/26/16 12/27/16 Range/Units 17:03 22:42 03:21 WBC (3.8-10.6) k/uL Neutrophils # (1.3-7.7) k/uL Lymphocytes # (1.0-4.8) k/uL PT (9.0-12.0) sec D-Dimer 1.97 H (<0.60) mg/L FEU Carbon Dioxide 16 L (22-30) mmol/L BUN 31 H (7-17) mg/dL Creatinine 1.10 H (0.52-1.04) mg/dL Glucose 223 H (74-99) mg/dL POC Glucose (mg/dL) 173 H (75-99) mg/dL Plasma Lactic Acid Krishan (0.7-2.0) mmol/L Total Bilirubin 1.9 H (0.2-1.3) mg/dL 12/27/16 12/27/16 12/27/16 Range/Units 03:21 03:21 03:21 WBC 11.5 H (3.8-10.6) k/uL Neutrophils # 10.7 H (1.3-7.7) k/uL Lymphocytes # 0.2 L (1.0-4.8) k/uL PT 34.9 H (9.0-12.0) sec D-Dimer (<0.60) mg/L FEU Carbon Dioxide (22-30) mmol/L BUN (7-17) mg/dL Creatinine (0.52-1.04) mg/dL Glucose (74-99) mg/dL POC Glucose (mg/dL) (75-99) mg/dL Plasma Lactic Acid Krishan 2.3 H* (0.7-2.0) mmol/L Total Bilirubin (0.2-1.3) mg/dL 12/27/16 12/27/16 Range/Units 06:08 11:56 WBC (3.8-10.6) k/uL Neutrophils # (1.3-7.7) k/uL Lymphocytes # (1.0-4.8) k/uL PT (9.0-12.0) sec D-Dimer (<0.60) mg/L FEU Carbon Dioxide (22-30) mmol/L BUN (7-17) mg/dL Creatinine (0.52-1.04) mg/dL Glucose (74-99) mg/dL POC Glucose (mg/dL) 243 H 152 H (75-99) mg/dL Plasma Lactic Acid Krishan (0.7-2.0) mmol/L Total Bilirubin (0.2-1.3) mg/dL Microbiology - Last 24 Hours (Table) 12/25/16 19:31 Blood Culture - Preliminary Blood No Growth after 24 hours Assessment and Plan Plan: Impression Present on admission shortness of breath acute hypoxic respiratory failure suspect due to community-acquired left lower lobe pneumonia Present on admission Acute on chronic respiratory failure with hypoxic with acute respiratory distress use of accessory muscles to breathe with audible wheezing Chronic persist atrial fibrillation on anticoagulation History of asthma Elevated d-dimer with a CAT scan of the chest negative for pulmonary emboli Hyperlipidemia Present on admission coagulopathy Coumadin induced INR 4.9 Coumadin on hold Plan Continue with pulmonology's recommendations Follow up on the echocardiogram pending Continue with cardiology's recommendations DVT and GI prophylaxis Continue current aerosol bronchodilators Monitor blood sugars while on steroids address as indicated Further recommendations pending Continue IV Levaquin as ordered Continue to hold the Coumadin the INR today 3.6 The above dictated assessment and findings were discussed with Dr. Sibley Impression and the plan of care have been dictated as directed. Chloe Reddy nurse practitioner acting as a scribe for Dr. Sibley
--- NOTE | 2016-12-27 15:54 | CONS ---
DATE OF CONSULTATION: Becca Quiñones is an 86-year-old female who came in with a history of cough associated wheezing and some shortness of breath. She was seen at a walk-in clinic and was discharged home after a strep swab was negative. She was bringing up some yellowish phlegm. She became quite weak and was brought in for further evaluation to the ER. 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 No clear history of asthma or COPD. SOCIAL HISTORY: The patient is a nonsmoker. FAMILY HISTORY: Noncontributory. MEDICATIONS: Prior to admission were: 1. Warfarin. 2. Montelukast. 3. Melatonin. 4. Sitagliptin with metformin. 5. Pravastatin. 6. Prinivil. 7. Tessalon Perles. 8. Tylenol. 9. Clindamycin. On physical examination, respiratory rate is 20, pulse 97, temperature 98.5, blood pressure 123/84, O2 sat on 2 liters by nasal cannula is 96%. HEENT reveals pupils are equal. No jugular venous distention. Chest reveals decreased breath sounds, prolonged expiration, bilateral expiratory wheeze. Cardiovascular system reveals an S1 and S2. ABDOMEN: Soft. There is no pedal edema. There is pacemaker in the left anterior chest wall. Chest x-ray shows hyperinflation with some ( ) atelectatic changes, possible lung nodules. CT scan of the chest shows patchy interstitial type infiltrate in the mid and lower lung monzon. No evidence of a pulmonary mass, small hiatal hernia and wedging of T4. IMPRESSION: 1. Bronchospasm secondary to atypical pneumonia. 2. Atrial fibrillation. 3. History of coronary artery disease. At this point in time, would keep the patient on IV steroids, antibiotics, add inhaled steroids. As she is diabetic would keep her on insulin, continue Coumadin, keep her on GI prophylaxis. Depending on how she does, we shall make further changes to her care. She was counseled regarding her condition and this approach and has a fair understanding of our recommendations.
[2016-12-27 16:54] LABS: Glucose,Whole Blood 207 mg/dL (75-99)
[2016-12-27] MEDS: LEVOFLOXACIN 750MG-D5W PMX 750 MG in DEXTROSE/WATER 1 150ML.BAG IVPB SCH (17:09)
[2016-12-27] MEDS: WARFARIN 5 MG TAB PO SCH (17:10)
[2016-12-27 21:02] LABS: Glucose,Whole Blood 225 mg/dL (75-99)
[2016-12-27] MEDS ORDERED: IPRATROPIUM-ALBUTEROL 3 ML NEB INHALATION PRN (21:16)
[2016-12-27] MEDS: BUDESONIDE 0.5 MG/2 ML NEBU INHALATION SCH (21:17)
[2016-12-27] MEDS: MELATONIN 5 MG TABLET PO SCH (21:36)
[2016-12-28] MEDS: methylPREDNISolone SOD SUCCI 40 MG/ML 1 ML VIAL IV SCH (00:02)
[2016-12-28] MEDS: BUDESONIDE 0.5 MG/2 ML NEBU INHALATION SCH ×2 (08:08→21:18)
[2016-12-28] MEDS: IPRATROPIUM-ALBUTEROL 3 ML NEB INHALATION SCH ×4 (08:08→21:18)
--- NOTE | 2016-12-28 08:12 | P.PN ---
Subjective 86-year-old female being seen on rounds with the attending this morning patient currently is refusing to have lab draws this morning nursing reports the patient last evening had an episode of confusion refusing to go back in the room refusing to take her medication and seemed disoriented but was cooperative. Currently the patient is resting in bed is pleasant oriented to person and place with prompting can recall event. Monitor currently is showing atrial fibrillation rate controlled. No labs drawn this morning. Objective - Vital Signs Vital signs: Vital Signs Temp 97.4 F L 12/28/16 07:30 Pulse 90 12/28/16 07:30 Resp 20 12/28/16 07:30 BP 155/76 12/28/16 07:30 Pulse Ox 95 12/28/16 07:30 Intake & Output 12/27/16 12/28/16 12/28/16 18:59 06:59 18:59 Intake Total 862 300 Output Total 250 Balance 862 50 Weight 55.9 kg Intake: Intake, IV Titration 190 Amount Diltiazem 125 mg In 40 Sodium Chloride 0.9% 100 ml @ 10 MG/HR 10 mls/hr IV .[id number] CLAUDIA Rx#: [id number] Levofloxacin 750Mg-D5w 150 Pmx 750 mg In Dextrose/ Water 1 150ml.bag @ 100 mls/hr IVPB Q24H CLAUDIA Rx#: [id number] Oral 672 300 Output: Urine 250 Other: Voiding Method Toilet Bedpan # Voids 2 1 - Exam Physical exam 86-year-old female sitting up in bed pleasant cooperative is insisting that no labs will be drawn this morning oriented times to Lungs diminished at the bases upper airways bronchial breath sounds sats on 2 L are documented 95-97% no cough noted Heart S1-S2 audible irregular monitor A. fib rate 70 denying chest pain Abdomen soft nontender Extremities no edema - Labs CBC & Chem 7: 12/27/16 03:21 12/27/16 03:21 Labs: Abnormal Lab Results - Last 24 Hours (Table) 12/27/16 12/27/16 12/27/16 Range/Units 11:56 16:52 21:00 POC Glucose (mg/dL) 152 H 207 H 225 H (75-99) mg/dL Microbiology - Last 24 Hours (Table) 12/25/16 19:31 Blood Culture - Preliminary Blood No Growth after 48 hours Assessment and Plan Plan: Impression Present on admission shortness of breath acute hypoxic respiratory failure suspect due to community-acquired left lower lobe pneumonia Present on admission Acute on chronic respiratory failure with hypoxic with acute respiratory distress use of accessory muscles to breathe with audible wheezing Chronic persist atrial fibrillation on anticoagulation History of asthma Elevated d-dimer with a CAT scan of the chest negative for pulmonary emboli Hyperlipidemia Present on admission coagulopathy Coumadin induced INR 4.9 Coumadin on hold Plan Continue with pulmonology's recommendations Per cardiology patient is felt to be stable from that perspective and that the patient could be discharged within the next 24 hours DVT and GI prophylaxis Continue current aerosol bronchodilators Monitor blood sugars while on steroids address as indicated Further recommendations pending Continue Levaquin as ordered Continue to hold the Coumadin the INR today 3.6 Will cancel the echocardiogram an echo was done in September 2016 EF of 50-55% with moderate pulmonary hypertension and mild aortic stenosis Hold the Coumadin today and check an INR in the morning Titrate the O2 down to keep a sat greater than 90 The above dictated assessment and findings were discussed with Dr. Sibley Impression and the plan of care have been dictated as directed. Chloe Reddy nurse practitioner acting as a scribe for Dr. Sibley
[2016-12-28] MEDS: ATENOLOL 50 MG TAB PO SCH (08:21)
[2016-12-28] MEDS: MONTELUKAST 10 MG TAB PO SCH (08:22)
[2016-12-28] MEDS: PRAVASTATIN SODIUM 20 MG TAB PO SCH (08:22)
[2016-12-28] MEDS: LISINOPRIL 10 MG TAB PO SCH (08:22)
[2016-12-28 08:41] LABS: Glucose,Whole Blood 193 mg/dL (75-99)
[2016-12-28] MEDS ORDERED: VERAPAMIL 40 MG TAB PO SCH (09:00)
[2016-12-28] MEDS ORDERED: VERAPAMIL SR 120 MG TABLET.ER PO SCH (09:00)
[2016-12-28 09:13] LABS: INR 2.9 (<1.1); Prothrombin Time 27.9 sec (9.0-12.0)
[2016-12-28] MEDS: metFORMIN 500 MG TAB PO SCH ×2 (09:23→17:31)
[2016-12-28] MEDS: LINAGLIPTIN 5 MG TABLET PO SCH (09:24)
[2016-12-28] MEDS: predniSONE 20 MG TAB PO SCH (09:24)
[2016-12-28] MEDS: INSULIN LISPRO (humaLOG) 300 UNIT/3 ML VIAL SQ SCH ×4 (09:43→21:28)
[2016-12-28 11:37] LABS: Glucose,Whole Blood 149 mg/dL (75-99)
--- NOTE | 2016-12-28 12:33 | PN ---
She was seen on 12/28/2016. She remained hemodynamically stable. She is less short of breath. She is not labored as far as her respirations go. On physical examination, her blood pressure is 155/76, respiratory rate 20, pulse rate of 88, temperature 97.4, O2 sat on 2 L by nasal cannula is 95%. HEENT is unremarkable. Chest reveals wheeze only on prolonged expiration. Cardiovascular system reveals an S1, S2. Abdomen is soft. There is trace pedal edema. IMPRESSION: 1. Bronchospasm. 2. Atypical pneumonia. 3. Atrial fibrillation. 4. Coronary artery disease. Switch her to oral steroids. Increase her activity level. Continue insulin. Optimize coagulation. Her prognosis at this time is fair. She was counseled regarding her condition but only has a limited understanding of our recommendations.
[2016-12-28 17:13] LABS: Glucose,Whole Blood 162 mg/dL (75-99)
[2016-12-28 20:54] LABS: Glucose,Whole Blood 146 mg/dL (75-99)
[2016-12-28] MEDS: MELATONIN 5 MG TABLET PO SCH (21:27)
[2016-12-29] MEDS: IPRATROPIUM-ALBUTEROL 3 ML NEB INHALATION SCH ×4 (08:00→19:30)
[2016-12-29] MEDS: BUDESONIDE 0.5 MG/2 ML NEBU INHALATION SCH ×2 (08:01→19:30)
[2016-12-29 08:39] LABS: Glucose,Whole Blood 132 mg/dL (75-99)
[2016-12-29] MEDS: metFORMIN 500 MG TAB PO SCH (09:05)
[2016-12-29] MEDS: INSULIN LISPRO (humaLOG) 300 UNIT/3 ML VIAL SQ SCH ×3 (09:06→17:42)
[2016-12-29] MEDS: PRAVASTATIN SODIUM 20 MG TAB PO SCH (09:06)
[2016-12-29] MEDS: LINAGLIPTIN 5 MG TABLET PO SCH (09:06)
[2016-12-29] MEDS: MONTELUKAST 10 MG TAB PO SCH (09:06)
[2016-12-29] MEDS: predniSONE 20 MG TAB PO SCH (09:06)
[2016-12-29] MEDS: LISINOPRIL 10 MG TAB PO SCH (09:06)
[2016-12-29] MEDS: ATENOLOL 50 MG TAB PO SCH (09:06)
[2016-12-29 09:13] LABS: INR 2.5 (<1.1); Prothrombin Time 24.5 sec (9.0-12.0)
--- NOTE | 2016-12-29 09:31 | PN ---
DATE OF SERVICE: 12/29/2016 She has remained hemodynamically stable. She seems about the same as far as shortness of breath goes. She is pleasantly confused. Her blood pressure is 158/75, respiratory rate of 16, pulse rate of 68, temperature 97.7. O2 sat on room air is 94%. HEENT is unremarkable. Chest reveals occasional rhonchi. Cardiovascular system reveals an S1 and S2. Abdomen is soft. There is no pedal edema. Blood cultures have been negative. Group A strep throat culture has been negative. Sputum is showing Haemophilus influenzae. IMPRESSION: 1. Bronchospasm. 2. Atypical pneumonia. 3. Atrial fibrillation. 4. Coronary artery disease. Continue oral steroids. Optimize anticoagulation. Continue antibiotics. Increase her activity level. Her prognosis at this time is fair.
--- NOTE | 2016-12-29 11:01 | CDI ---
In responding to this query, please exercise your independent professional judgment. The [facility] Coding Staff and Clinical Documentation Specialists appreciate your assistance in clarifying documentation, maintaining compliance with coding guidelines, accurately documenting patients condition and capturing severity of illness. The fact that a question is asked does not imply that any particular answer is desired or expected. Communication forms are a method of clarifying documentation and are not made part of the Legal Health Record. Thank you in advance for your clarification. Last Revision, September 2015 [place] [place] [address] [facility] [place] [address] Documentation Clarification Form Date: 12/29/2016 10:47:00 AM From: Kali Piper, RN, BSN, CDI Admit Date: 12/25/2016 4:35:00 PM Patient Name: Becca Quiñones Visit Number: [id number] Dr. To Sibley: "PNA with sepsis is a likely diagnosis" is documented one time in the H&P. It has not been documented again. History/Risk Factors: 86 yo female with a history of COPD and chronic respiratory failure, presents with c/o fever, SOB, cough and weakness Clinical Indicators: WBC: 16.2 (on admission) Blood cultures: negative to date Vitals signs on admission: 181/85, 115, 18, 102.5, 91% RA Other Clinical Indicators: Sputum cultures: H.Influenzae Treatment: Levaquin, Tylenol Consults: Pulmonary (documents "bronchospasm, atypical PNA) IV Bolus: 1L given on admission, IVF @125cc/hr In your professional opinion, can you please clarify if these findings signify one of the following conditions, whether the condition is POA, and cause, if known? SIRS, without underlying infectious process Sepsis (POA or ruled out)? If POA, please identify the (suspected) organism : Severe Sepsis Unable to determine Other, please specify SIRS Criteria: 2 or more of the following may indicate SIRS Temperature < 96.8F(36C) or > 101.0F (38C) Heart Rate > 90 bpm Respiratory Rate > 20 breaths/min or PaCO2 < 32 mmHg White Blood Cell Count > 12,000 or < 4,000 cells/mm3 or > 10% bands Please document in your progress notes and discharge summary in order to capture severity of illness and risk of mortality. Include clinical findings that support your diagnosis. FYI: Press F11 to launch patient chart. Place X here if this finding has no clinical significance, is not applicable or if you are not able to provide any additional documentation. MTDD
[2016-12-29 11:33] LABS: Glucose,Whole Blood 109 mg/dL (75-99)
[2016-12-29 12:54] LABS: Basophils # (A) 0.2 k/uL (0-0.2); Basophils % (A) 1 %; CH 29.6; Eosinophils % (A) 0 %; HCT 42.4 % (34.0-46.0); HDW 2.55; HGB 13.5 gm/dL (11.4-16.0); Immature Gran Flag Slight; Luc # (Auto) 0.09; Luc % (Auto) 1; Lymphocytes # (A) 0.8 k/uL (1.0-4.8); Lymphocytes % (A) 5 %; MCH 29.6 pg (25.0-35.0); MCHC 31.8 g/dL (31.0-37.0); MCV 93.1 fL (80.0-100.0); Mean Platelet Volume 10.1; Monocytes # (A) 0.8 k/uL (0-1.0); Monocytes % (A) 5 %; Neutrophils # (A) 13.5 k/uL (1.3-7.7); Neutrophils % (A) 87 %; RBC 4.55 m/uL (3.80-5.40); RDW 13.8 % (11.5-15.5); WBC 15.4 k/uL (3.8-10.6); WBC (Perox) 15.98
[2016-12-29 13:03] LABS: Calcium 8.5 mg/dL (8.4-10.2); Total Bilirubin 1.5 mg/dL (0.2-1.3); Total Protein 6.4 g/dL (6.3-8.2)
[2016-12-29] MEDS ORDERED: SODIUM CHLORIDE 0.9% 1,000 ML IV SCH (14:00)
[2016-12-29 14:14] LABS: Manual Review Performed
[2016-12-29] MEDS ORDERED: SODIUM POLYSTYRENE SULFONATE 15 GM/60 ML BOTTLE PO STA ×2 (14:14→20:37)
[2016-12-29] MEDS ORDERED: amLODIPine 5 MG TAB PO SCH (14:15)
--- NOTE | 2016-12-29 14:23 | P.PN ---
Subjective 86-year-old female being seen on rounds daughter at bedside. Nursing reports patient has been experiencing urinary retention and when the indwelling Jauregui catheter was inserted this morning there was about 150 of urine obtained a large vaginal bulge about the size of a grapefruit noted. Patient's daughter states that she has had this for a long time and did see an ELECTROLYSIS INVESTIGATOR about a year ago for the prolapse and didn't follow-up reportedly had a pessary placed at that time the patient is a poor historian difficult to adequately obtain the history from the patient. History is been obtained from interviewing the daughter. Daughter states they did have an appointment with ELECTROLYSIS INVESTIGATOR in June last year but they did not keep the appointment. Did note the patient does have a large size vaginal prolapse cyst able to push back up into the vaginal vault. Indwelling Jauregui catheter with small amount urine noted. Patient did have an episode of coffee-ground emesis this morning and one black small stool over the last 24 hours is been poor oral intake secondary to the patient being significantly confused which according to the daughter is different from baseline did note the creatinine is elevated this morning Patient is pleasantly confused oriented to self. There's been poor oral intake. Creatinine is up to 5.4 make is 1.5 potassium is elevated to 6 Objective - Vital Signs Vital signs: Vital Signs Temp 97.7 F 12/28/16 23:00 Pulse 81 12/29/16 08:15 Resp 18 12/29/16 07:00 BP 180/74 12/29/16 07:00 Pulse Ox 97 12/29/16 07:00 Intake & Output 12/28/16 12/29/16 12/29/16 18:59 06:59 18:59 Intake Total 120 Balance 120 Intake: Oral 120 Other: Voiding Method Toilet Toilet Toilet Bedpan # Voids 1 0 0 # Bowel Movements 1 - Exam Physical exam 86-year-old female resting in bed pleasant oriented to self only Lungs essentially clear adequate air movement Heart S1-S2 audible irregular monitor atrial fibrillation rate in the 70s Abdomen soft nontender not able to elicit any facial grimacing with palpitation to the abdominal wall indwelling Jauregui catheter in place less than 50 mL out since 7 AM this morning Vagina large grape size prolapsed cyst able to push back up into the vaginal vault Extremities no edema noted - Labs CBC & Chem 7: 12/29/16 08:52 12/29/16 08:52 Labs: Abnormal Lab Results - Last 24 Hours (Table) 12/28/16 12/28/16 12/29/16 Range/Units 17:11 20:45 08:32 WBC (3.8-10.6) k/uL PT (9.0-12.0) sec Potassium (3.5-5.1) mmol/L Carbon Dioxide (22-30) mmol/L BUN (7-17) mg/dL Creatinine (0.52-1.04) mg/dL Glucose (74-99) mg/dL POC Glucose (mg/dL) 162 H 146 H 132 H (75-99) mg/dL Total Bilirubin (0.2-1.3) mg/dL 12/29/16 12/29/16 12/29/16 Range/Units 08:52 08:52 08:52 WBC 15.4 H (3.8-10.6) k/uL PT 24.5 H (9.0-12.0) sec Potassium 6.0 H (3.5-5.1) mmol/L Carbon Dioxide 12 L (22-30) mmol/L BUN 106 H* (7-17) mg/dL Creatinine 5.40 H* (0.52-1.04) mg/dL Glucose 138 H (74-99) mg/dL POC Glucose (mg/dL) (75-99) mg/dL Total Bilirubin 1.5 H (0.2-1.3) mg/dL 12/29/16 Range/Units 11:28 WBC (3.8-10.6) k/uL PT (9.0-12.0) sec Potassium (3.5-5.1) mmol/L Carbon Dioxide (22-30) mmol/L BUN (7-17) mg/dL Creatinine (0.52-1.04) mg/dL Glucose (74-99) mg/dL POC Glucose (mg/dL) 109 H (75-99) mg/dL Total Bilirubin (0.2-1.3) mg/dL Microbiology - Last 24 Hours (Table) 12/25/16 19:31 Blood Culture - Preliminary Blood No Growth after 72 hours Assessment and Plan Plan: Impression Present on admission shortness of breath acute hypoxic respiratory failure suspect due to community-acquired left lower lobe pneumonia Present on admission Acute on chronic respiratory failure with hypoxic with acute respiratory distress use of accessory muscles to breathe with audible wheezing Chronic persist atrial fibrillation on anticoagulation History of asthma Elevated d-dimer with a CAT scan of the chest negative for pulmonary emboli Hyperlipidemia Present on admission coagulopathy Coumadin induced INR 4.9 Coumadin on hold Acute renal failure creatinine up to 5 suspect due to poor oral intake hypovolumic Severe electrolyte abnormality Hyperkalemia Mild aortic stenosis per echo 2016 Plan Consult nephrology Hold all nephrotoxin meds IV fluid at 75 an hour monitor response Consult infectious disease recommendations antibiotics Await ELECTROLYSIS INVESTIGATOR's input Continue with pulmonology's recommendations Per cardiology patient is felt to be stable from that perspective and that the patient could be discharged within the next 24 hours DVT and GI prophylaxis Continue current aerosol bronchodilators Monitor blood sugars while on steroids address as indicated Give now dose kayelate Stop Levaquin as ordered Continue to hold the Coumadin Hold the Coumadin today and check an INR in the morning Titrate the O2 down to keep a sat greater than 90 The above dictated assessment and findings were discussed with Dr. Sibley Impression and the plan of care have been dictated as directed. Chloe Reddy nurse practitioner acting as a scribe for Dr. Sibley
[2016-12-29 14:38] LABS: Calcium 8.6 mg/dL (8.4-10.2); Total Bilirubin 1.3 mg/dL (0.2-1.3); Total Protein 6.2 g/dL (6.3-8.2)
[2016-12-29 14:46] LABS: Amorphous Sediment,Urine Occasional /hpf; Appearance,Urine Cloudy (Clear); Bilirubin,Urine Negative (Negative); Glucose,Urine (UA) Negative (Negative); Ketones,Urine Negative (Negative); Leukocyte Esterase,Urine Negative (Negative); Mucus,Urine Rare /hpf; Nitrite,Urine Negative (Negative); Particle Count 10212; Protein,Urine Trace (Negative); RBC,Urine 1 /hpf (0-5); Specific Gravity,Urine 1.028 (1.001-1.035); Squamous Epithelial Cell,Urine 1 /hpf (0-4); UA Billing (MACRO vs. MICRO) MICRO; Urobilinogen,Urine <2.0 mg/dL (<2.0); WBC,Urine 5 /hpf (0-5)
[2016-12-29 14:54] LABS: Potassium 6.6 mmol/L (3.5-5.1)
[2016-12-29] MEDS: amLODIPine 10 MG TAB PO SCH (14:59)
[2016-12-29] MEDS: PANTOPRAZOLE 40 MG/10 ML VIAL IVP SCH (14:59)
[2016-12-29] MEDS ORDERED: INSULIN REGULAR 100 UNIT/ML VIAL IV ONE (15:05)
[2016-12-29] MEDS ORDERED: SODIUM BICARB 8.4% 50 ML SYR (1 MEQ/ML) IV STA ×2 (15:07→20:36)
[2016-12-29] MEDS ORDERED: CALCIUM GLUCONATE 1,000 MG in SODIUM CHLORIDE 0.9% 100 ML IVPB ONE ×2 (15:30→20:38)
[2016-12-29] MEDS ORDERED: LEVOFLOXACIN 750 MG TAB PO SCH (16:00)
--- NOTE | 2016-12-29 16:00 | US ---
EXAMINATION TYPE: US kidneys/renal and bladder DATE OF EXAM: 12/29/2016 3:48 PM COMPARISON: Ct in pacs November 01, 2015 CLINICAL HISTORY: Rule out hydronephrosis. Renal failure, exam done portable. EXAM MEASUREMENTS: Right Kidney: 9.3 x 4.4 x 4.7 cm Left Kidney: 9.1 x 4.2 x 4.2 TECHNOLOGIST IMPRESSION: Right Kidney: No hydronephrosis or masses seen, limited by rib shadowing Left Kidney: No hydronephrosis or masses seen, limited by rib shadowing and overlying bowel gas Bladder: not fully distended, givens catheter Bilateral Jets seen: no There is no evidence for hydronephrosis at this point in time. No suspicious masses are identified o n images saved. The urinary bladder is suboptimally evaluated due to Givens catheter decompression. IMPRESSION: Suboptimal study without evidence of hydronephrosis seen bilaterally.
--- NOTE | 2016-12-29 16:52 | P.OBCN ---
History of Present Illness Consult date: 12/29/16 Requesting physician: To Sibley Reason for consult: pelvic prolapse Chief complaint: Complete pelvic prolapse History of present illness: This is an 86-year-old woman who was admitted with urinary tract infection, respiratory symptoms and atrial fibrillation. She has developed renal failure. All history is obtained from the patient's daughter who is at the bedside. The patient appears confused although does answer some basic questions. She has a long-standing history according to the daughter, of significant pelvic prolapse. The patient confirms this has been present for years. She was fitted with a pessary device by different gunner's mate in January of 2016 but the patient does not recall what happened to the pessary and whether or not this helped with her symptoms. According to her nurse the prolapse has been reduced by the nursing staff a couple of times without difficulty today. When this was reduced and a Jauregui catheter was placed approximately 150 mL of clear urine was obtained. There did not appear to be significant urinary retention. The nursing staff also does not note vaginal bleeding. The patient had a renal and abdominal ultrasound which was negative for bilateral hydronephrosis or bladder distention. Review of Systems Constitutional: Denies fever Cardiovascular: Reports shortness of breath, Denies chest pain Gastrointestinal: Denies abdominal pain, Denies BRBPR Genitourinary: Denies abnormal vaginal bleeding, Denies hematuria, Denies pelvic pain, Denies vaginal discharge Neurological: Reports confusion Past Medical History Past Medical History: Atrial Fibrillation, Coronary Artery Disease (CAD), Cancer , Diabetes Mellitus, Hyperlipidemia, Hypertension Additional Past Medical History / Comment(s): hx prolapse from vagina. pt reports she pushes it up herself. breast ca History of Any Multi-Drug Resistant Organisms: None Reported Past Surgical History: Appendectomy, Breast Surgery, Cholecystectomy, Hysterectomy, Pacemaker Past Anesthesia/Blood Transfusion Reactions: No Reported Reaction Past Psychological History: No Psychological Hx Reported Smoking Status: Never smoker Past Alcohol Use History: None Reported Past Drug Use History: None Reported - Past Family History Father Family Medical History: Unable to Obtain Mother History Unknown: Yes Medications and Allergies Home Medications Medication Instructions Recorded Confirmed Type Montelukast [Singulair] 10 mg PO DAILY 09/01/15 12/25/16 History sitaGLIPtin PHOS/metFORMIN HCL 1 tab PO BID 09/01/15 12/25/16 History [Janumet 50-500 mg Tablet] Melatonin 10 mg PO HS 10/07/16 12/25/16 History Benzonatate [Tessalon Perles] 100 mg PO TID PRN 12/25/16 12/25/16 History Clindamycin [Cleocin] 150 mg PO QID 12/25/16 12/25/16 History Allergies Allergy/AdvReac Type Severity Reaction Status Date / Time Penicillins Allergy Swelling Verified 12/25/16 14:06 Exam - Vital Signs Vital signs: Vital Signs Temp Pulse Pulse Resp BP Pulse Ox 12/29/16 16:12 84 12/29/16 16:00 83 90 L 12/29/16 13:58 97.8 F 66 174/76 98 12/29/16 08:15 81 12/29/16 08:01 78 12/29/16 07:00 73 18 180/74 97 12/28/16 23:00 97.7 F 68 16 158/75 94 L Intake and Output 12/29/16 12/29/16 12/29/16 06:59 14:59 22:59 Intake Total 120 Output Total 150 Balance 120 -150 Intake: Oral 120 Output: Urine 150 Other: Voiding Method Toilet # Voids 0 0 # Bowel Movements 1 Weight 55.9 kg Patient Weight 12/30/16 06:59 Weight 55.9 kg This is an elderly female who is oriented to person only. She is pleasant and was able to answer some historical questions. She does not appear to be in any acute distress. Targeted physical exam is performed. The abdomen is slim soft and nontender. On pelvic examination she has complete procidentia that is a large enterocele. The skin appears healthy with no visible areas of ulceration or excoriation. With the use of lubricant this is completely reduced into the vagina. There is no significant return of urine into the Jauregui catheter after this is performed. There appears to be dark tarry stool in the area. On pelvic exam no other pelvic masses are palpable in the area is nontender. Results Result Diagrams: 12/29/16 08:52 12/29/16 14:03 Abnormal Lab Results - Last 24 Hours (Table) 12/28/16 12/28/16 12/29/16 Range/Units 17:11 20:45 08:32 WBC (3.8-10.6) k/uL Neutrophils # (1.3-7.7) k/uL Lymphocytes # (1.0-4.8) k/uL PT (9.0-12.0) sec Potassium (3.5-5.1) mmol/L Carbon Dioxide (22-30) mmol/L BUN (7-17) mg/dL Creatinine (0.52-1.04) mg/dL Glucose (74-99) mg/dL POC Glucose (mg/dL) 162 H 146 H 132 H (75-99) mg/dL Total Bilirubin (0.2-1.3) mg/dL Total Protein (6.3-8.2) g/dL Urine Appearance (Clear) Urine Protein (Negative) Amorphous Sediment (None) /hpf Hyaline Casts (0-2) /lpf Urine Mucus (None) /hpf 12/29/16 12/29/16 12/29/16 Range/Units 08:52 08:52 08:52 WBC 15.4 H (3.8-10.6) k/uL Neutrophils # 13.5 H (1.3-7.7) k/uL Lymphocytes # 0.8 L (1.0-4.8) k/uL PT 24.5 H (9.0-12.0) sec Potassium 6.0 H (3.5-5.1) mmol/L Carbon Dioxide 12 L (22-30) mmol/L BUN 106 H* (7-17) mg/dL Creatinine 5.40 H* (0.52-1.04) mg/dL Glucose 138 H (74-99) mg/dL POC Glucose (mg/dL) (75-99) mg/dL Total Bilirubin 1.5 H (0.2-1.3) mg/dL Total Protein (6.3-8.2) g/dL Urine Appearance (Clear) Urine Protein (Negative) Amorphous Sediment (None) /hpf Hyaline Casts (0-2) /lpf Urine Mucus (None) /hpf 12/29/16 12/29/16 12/29/16 Range/Units 11:28 14:03 14:30 WBC (3.8-10.6) k/uL Neutrophils # (1.3-7.7) k/uL Lymphocytes # (1.0-4.8) k/uL PT (9.0-12.0) sec Potassium 6.6 H* (3.5-5.1) mmol/L Carbon Dioxide 8 L* (22-30) mmol/L BUN 119 H* (7-17) mg/dL Creatinine 5.90 H* (0.52-1.04) mg/dL Glucose (74-99) mg/dL POC Glucose (mg/dL) 109 H (75-99) mg/dL Total Bilirubin (0.2-1.3) mg/dL Total Protein 6.2 L (6.3-8.2) g/dL Urine Appearance Cloudy H (Clear) Urine Protein Trace H (Negative) Amorphous Sediment Occasional H (None) /hpf Hyaline Casts 13 H (0-2) /lpf Urine Mucus Rare H (None) /hpf Microbiology - Last 24 Hours (Table) 12/25/16 19:31 Blood Culture - Preliminary Blood No Growth after 72 hours US - abdomen: report reviewed Assessment and Plan (1) Renal failure, acute Status: Acute (2) UTI (urinary tract infection) Status: Acute (3) Diabetes Status: Acute (4) HTN (hypertension) Status: Acute (5) History of atrial fibrillation Status: Acute (6) UTI (urinary tract infection) Status: Acute (7) Vaginal prolapse Narrative/Plan: This is a long-term chronic condition according to the patient and her daughter. She has used a pessary in the past. Her daughter will attempt to get records regarding specifically what type and I'm happy to attempt to replace this if it is available. I do not believe that her prolapse creating urethral and/or ureteral obstruction. With reduction of the prolapse there is minimal urine returned from the Jauregui catheter. She has no evidence of hydronephrosis on imaging. Currently the nursing staff can reduce the prolapse as necessary for patient comfort. A barrier ointment such as Vaseline can be gently applied should any excoriations or ulcerations appear. Status: Acute Time with Patient: Greater than 30
[2016-12-29] MEDS: DEXTROSE 5% IN WATER 1,000 ML with SODIUM BICARB (1 MEQ/ML) 150 ML IV SCH (17:34)
[2016-12-29 17:43] LABS: Glucose,Whole Blood 66 mg/dL (75-99)
[2016-12-29 18:14] LABS: Glucose,Whole Blood 67 mg/dL (75-99)
[2016-12-29 18:29] LABS: Glucose,Whole Blood 75 mg/dL (75-99)
[2016-12-29 20:08] LABS: Glucose,Whole Blood 81 mg/dL (75-99)
[2016-12-29 20:10] LABS: AST 70 U/L (14-36); Alkaline Phosphatase 201 U/L (38-126); Anion Gap 33 mmol/L; Calcium 8.3 mg/dL (8.4-10.2); Chloride 102 mmol/L (98-107); Glucose 73 mg/dL (74-99); Sodium 141 mmol/L (137-145); Total Bilirubin 2.1 mg/dL (0.2-1.3); Total Protein 6.7 g/dL (6.3-8.2)
[2016-12-29 20:23] LABS: Carbon Dioxide 6 mmol/L (22-30)
[2016-12-29 20:32] LABS: Potassium 6.5 mmol/L (3.5-5.1)
[2016-12-29] MEDS ORDERED: DEXTROSE 50%-WATER 50 ML SYRINGE IVP STA (20:37)
[2016-12-29] MEDS ORDERED: INSULIN REGULAR 100 UNIT/ML VIAL SQ ONE (20:38)
[2016-12-29 21:06] LABS: Glucose,Whole Blood 97 mg/dL (75-99)
--- NOTE | 2016-12-29 22:26 | P.PN ---
Subjective Principal diagnosis: Atrial fibrillation, shortness of breath and cough This 86-year-old female was admitted with complaints of shortness of breath and cough. Patient also was found to have atrial fibrillation which is chronic in nature. She was being treated for tracheobronchitis and pneumonia patient had a computed tomography scan of the chest which was negative for pulmonary emboli. Her renal function was normal on admission. Her proBNP was 1010 which probably is within normal limits for her age. Today patient seemed to be nauseated. It was felt secondary to antibiotics. She is also having some difficulty urinating and apparently has some vaginal prolapse. From Cardec standpoint her pulse is controlled and she is anticoagulated. Once her symptoms of nausea corrected, patient could be discharged home. Patient may also have blood work to check her electrolytes and BUN/creatinine. Objective - Vital Signs Vital signs: Vital Signs Temp 98.4 F 12/29/16 15:00 Pulse 81 12/29/16 19:53 Resp 18 12/29/16 15:00 BP 136/68 12/29/16 15:00 Pulse Ox 90 L 12/29/16 16:00 Intake & Output 12/29/16 12/29/16 12/30/16 06:59 18:59 06:59 Intake Total 120 Output Total 150 Balance 120 -150 Weight 55.9 kg Intake: Oral 120 Output: Urine 150 Other: Voiding Method Toilet Indwelling Catheter # Voids 0 0 # Bowel Movements 1 - Exam GENERAL EXAM: Patient is alert and appears is sick and unable to give any detailed history HEENT: Normocephalic. Normal reaction of pupils, equal size, normal range of extraocular motion. No erythema or exudates in the throat. NECK: No masses, no nuchal rigidity. CHEST: No chest wall deformity. LUNGS: Rhonchi HEART: S1 and S2 normal with no audible mumurs or gallops. Regular rhythm, femorals equal on both sides.. ABDOMEN: No hepatosplenomegaly, normal bowel sounds, no guarding or rigidity. SKIN: No rashes CENTRAL NERVOUS SYSTEM: No focal deficits. EXTREMITIES: No cyanosis, clubbing or edema. - Labs CBC & Chem 7: 12/29/16 08:52 12/29/16 19:32 Labs: Abnormal Lab Results - Last 24 Hours (Table) 12/29/16 12/29/16 12/29/16 Range/Units 08:32 08:52 08:52 WBC 15.4 H (3.8-10.6) k/uL Neutrophils # 13.5 H (1.3-7.7) k/uL Lymphocytes # 0.8 L (1.0-4.8) k/uL PT 24.5 H (9.0-12.0) sec Potassium (3.5-5.1) mmol/L Carbon Dioxide (22-30) mmol/L BUN (7-17) mg/dL Creatinine (0.52-1.04) mg/dL Glucose (74-99) mg/dL POC Glucose (mg/dL) 132 H (75-99) mg/dL Plasma Lactic Acid Krishan (0.7-2.0) mmol/L Calcium (8.4-10.2) mg/dL Total Bilirubin (0.2-1.3) mg/dL AST (14-36) U/L Alkaline Phosphatase (38-126) U/L Total Protein (6.3-8.2) g/dL Urine Appearance (Clear) Urine Protein (Negative) Amorphous Sediment (None) /hpf Hyaline Casts (0-2) /lpf Urine Mucus (None) /hpf 12/29/16 12/29/16 12/29/16 Range/Units 08:52 11:28 14:03 WBC (3.8-10.6) k/uL Neutrophils # (1.3-7.7) k/uL Lymphocytes # (1.0-4.8) k/uL PT (9.0-12.0) sec Potassium 6.0 H 6.6 H* (3.5-5.1) mmol/L Carbon Dioxide 12 L 8 L* (22-30) mmol/L BUN 106 H* 119 H* (7-17) mg/dL Creatinine 5.40 H* 5.90 H* (0.52-1.04) mg/dL Glucose 138 H (74-99) mg/dL POC Glucose (mg/dL) 109 H (75-99) mg/dL Plasma Lactic Acid Krishan (0.7-2.0) mmol/L Calcium (8.4-10.2) mg/dL Total Bilirubin 1.5 H (0.2-1.3) mg/dL AST (14-36) U/L Alkaline Phosphatase (38-126) U/L Total Protein 6.2 L (6.3-8.2) g/dL Urine Appearance (Clear) Urine Protein (Negative) Amorphous Sediment (None) /hpf Hyaline Casts (0-2) /lpf Urine Mucus (None) /hpf 12/29/16 12/29/16 12/29/16 Range/Units 14:30 17:30 18:03 WBC (3.8-10.6) k/uL Neutrophils # (1.3-7.7) k/uL Lymphocytes # (1.0-4.8) k/uL PT (9.0-12.0) sec Potassium (3.5-5.1) mmol/L Carbon Dioxide (22-30) mmol/L BUN (7-17) mg/dL Creatinine (0.52-1.04) mg/dL Glucose (74-99) mg/dL POC Glucose (mg/dL) 66 L 67 L (75-99) mg/dL Plasma Lactic Acid Krishan (0.7-2.0) mmol/L Calcium (8.4-10.2) mg/dL Total Bilirubin (0.2-1.3) mg/dL AST (14-36) U/L Alkaline Phosphatase (38-126) U/L Total Protein (6.3-8.2) g/dL Urine Appearance Cloudy H (Clear) Urine Protein Trace H (Negative) Amorphous Sediment Occasional H (None) /hpf Hyaline Casts 13 H (0-2) /lpf Urine Mucus Rare H (None) /hpf 12/29/16 12/29/16 Range/Units 19:32 19:32 WBC (3.8-10.6) k/uL Neutrophils # (1.3-7.7) k/uL Lymphocytes # (1.0-4.8) k/uL PT (9.0-12.0) sec Potassium 6.5 H* (3.5-5.1) mmol/L Carbon Dioxide 6 L* (22-30) mmol/L BUN (7-17) mg/dL Creatinine (0.52-1.04) mg/dL Glucose 73 L (74-99) mg/dL POC Glucose (mg/dL) (75-99) mg/dL Plasma Lactic Acid Krishan 7.5 H* (0.7-2.0) mmol/L Calcium 8.3 L (8.4-10.2) mg/dL Total Bilirubin 2.1 H (0.2-1.3) mg/dL AST 70 H (14-36) U/L Alkaline Phosphatase 201 H (38-126) U/L Total Protein (6.3-8.2) g/dL Urine Appearance (Clear) Urine Protein (Negative) Amorphous Sediment (None) /hpf Hyaline Casts (0-2) /lpf Urine Mucus (None) /hpf Microbiology - Last 24 Hours (Table) 12/25/16 19:31 Blood Culture - Preliminary Blood No Growth after 96 hours 12/29/16 14:30 Urine Culture - Preliminary Urine,Catheterized Assessment and Plan (1) Community acquired pneumonia Status: Acute (2) Hyponatremia Status: Acute (3) UTI (urinary tract infection) Status: Acute (4) Diabetes Status: Acute (5) HTN (hypertension) Status: Acute (6) History of atrial fibrillation Status: Acute Plan: Continue current medical therapy. Investigated nausea and vomiting. Get blood work.. From cardiac standpoint we'll continue current medical therapy
[2016-12-30] MEDS: INSULIN LISPRO (humaLOG) 300 UNIT/3 ML VIAL SQ SCH ×5 (00:30→21:11)
[2016-12-30] MEDS: MELATONIN 5 MG TABLET PO SCH ×2 (00:30→21:12)
[2016-12-30 00:37] LABS: Calcium 8.1 mg/dL (8.4-10.2); Total Protein 5.7 g/dL (6.3-8.2)
[2016-12-30 00:52] LABS: Potassium 5.2 mmol/L (3.5-5.1)
[2016-12-30] MEDS ORDERED: SODIUM CHLORIDE 0.9% 1,000 ML IV ONE (01:47)
[2016-12-30] MEDS ORDERED: FUROSEMIDE 10 MG/ML 10 ML VIAL IV STA (01:47)
[2016-12-30] MEDS: PANTOPRAZOLE 40 MG/10 ML VIAL IVP SCH ×3 (02:13→21:12)
[2016-12-30] MEDS: DEXTROSE 5% IN WATER 1,000 ML with SODIUM BICARB (1 MEQ/ML) 150 ML IV SCH ×4 (02:14→21:12)
[2016-12-30 05:27] LABS: CH 29.7; CHCM 32.6; HCT 38.4 % (34.0-46.0); HDW 2.53; HGB 12.3 gm/dL (11.4-16.0); Immature Gran Flag Slight; MCH 29.3 pg (25.0-35.0); MCV 91.5 fL (80.0-100.0); Mean Platelet Volume 8.4; RDW 13.9 % (11.5-15.5); WBC 13.4 k/uL (3.8-10.6); WBC (Perox) 14.17
[2016-12-30 05:31] LABS: INR 2.7 (<1.1); Prothrombin Time 25.8 sec (9.0-12.0)
[2016-12-30 05:37] LABS: Calcium 7.5 mg/dL (8.4-10.2); Potassium 4.5 mmol/L (3.5-5.1); Total Bilirubin 0.9 mg/dL (0.2-1.3); Total Protein 5.3 g/dL (6.3-8.2)
[2016-12-30 05:56] LABS: Phosphorous 9.1 mg/dL (2.5-4.5)
[2016-12-30 06:00] LABS: Add Differential Manual Differential
[2016-12-30 06:03] LABS: Manual Review Performed; Nucleated Red Blood Cells 0 /100 WBC (0-0); Total Cells Counted 200
[2016-12-30 07:51] LABS: Glucose,Whole Blood 297 mg/dL (75-99)
--- NOTE | 2016-12-30 08:08 | CONS ---
DATE OF CONSULTATION: 12/29/2016 Reason for consultation is antibiotic recommendation. HISTORY OF PRESENT ILLNESS: The patient is an 86-year-old female who was brought into the ER at [facility] on 12/25/2016 with chief complaints of difficulty breathing, cough, productive of some yellow sputum and fever at home. Patient apparently was seen recently, prior to that the [facility] where the patient did have a strep throat as to which came back negative and was discharged home. However, with worsening symptom, she presented to the [facility] ER. Patient did have a fever of 102 degrees Fahrenheit. She did have a chest x-ray with new left lower lobe pneumonia. Patient was started on Levaquin because of her PENICILLIN allergy. She did have CT of the chest with contrast which did show evidence of a patchy infiltrate. The patient has been treated with Levaquin; however, the patient did have a normal creatinine of 0.83 and did reach up to 5.49 with elevated potassium. Her Levaquin was discontinued and I was asked to see the patient for further recommendation regarding antibiotic therapy. The patient's fever has resolved. However, the patient is complaining of some shortness of breath and continues to have some cough. It is getting less productive now. No chest pain, no abdominal pain. Did have an episode of vomiting and some loose stools; however, the patient remains to be very pleasantly confused and most information has been employed by the daughter present at the bedside. REVIEW OF SYSTEMS: Positive points have been mentioned in HPI. The rest of the system being negative. PAST MEDICAL HISTORY: Significant for atrial fibrillation, coronary artery disease, and diabetes mellitus, hypertension, hyperlipidemia, breast cancer, and urinary prolapse. PAST SURGICAL HISTORY: Appendectomy, cholecystectomy, hysterectomy, pacemaker placement and breast surgery. SOCIAL HISTORY: No history of smoking, drinking or any drug use. FAMILY HISTORY: no pertinent findings were noticed. Allergies to PENICILLIN with a past history of anaphylaxis. Medications currently include the patient is on Tylenol, DuoNeb, Norvasc, Tenormin, Pulmicort, Humalog, melatonin, Glucophage, Singulair, Narcan, Zofran, Protonix, Pravachol, and Coumadin. On examination, blood pressure is 126/68 with a pulse of 83, temperature 98.4. She is 92% on 3 L nasal cannula. General description is an elderly female, lying in bed in no distress. No tachypnea or accessory muscle of respiration use. HEENT examination no pallor or scleral icterus. Oral mucosa dry. NECK: Trachea central. There is no thyromegaly. LUNGS: Unlabored breathing. Some decreased breath sound in the base. No wheeze. HEART: S1, S2. Regular rate and rhythm. ABDOMEN: Soft. No tenderness. No guarding or rigidity. EXTREMITIES: No edema of the feet. SKIN EXAMINATION: No rash or mass palpable. Neurologically patient is awake, alert, and oriented x2, mood and affect normal. LABS: Hemoglobin is 13.4, white count of 15.4. BUN of 119, creatinine is 5.90, potassium 6.6. Lactic acid elevated at 7.5. Sputum has been Haemophilus influenzae. Blood culture has been negative. DIAGNOSTIC IMPRESSION AND PLAN: 1. Patient admitted to hospital with sepsis. Source is pneumonia with sputum showing Haemophilus influenzae likely the causative organism. Unfortunately, the patient did develop renal failure which could have been related to the contrast used for the CT and clinically doubt any worsening sepsis as fever has resolved. Some jump in the white count could be related to her steroids and possibly allergic interstitial nephritis. 2. Patient with a PENICILLIN allergy that will limit a number of antibiotics that could be used due to a history of anaphylaxis. PLAN: 1. We will try the patient on Rocephin to cover the Haemophilus influenzae pneumonia. 2. IV fluid and discontinue the metformin. 3. Nephrology has been consulted for underlying renal insufficiency and will leave the management to them. 4. Patient worse when he has had yogurt and if any worsened diarrhea, to check for C. diff and treat if positive. 5. Will follow up on the clinical condition and the culture for the adjustment of medications if needed. Daughter was present at bedside, questions and concerns were answered. DEJAN
[2016-12-30] MEDS: LINAGLIPTIN 5 MG TABLET PO SCH ×2 (08:14→08:30)
[2016-12-30] MEDS: ATENOLOL 50 MG TAB PO SCH (08:14)
[2016-12-30] MEDS: amLODIPine 10 MG TAB PO SCH (08:14)
[2016-12-30] MEDS: MONTELUKAST 10 MG TAB PO SCH (08:14)
[2016-12-30] MEDS: CALCIUM ACETATE 667 MG CAP PO SCH ×3 (08:15→17:49)
[2016-12-30] MEDS: PRAVASTATIN SODIUM 20 MG TAB PO SCH (08:15)
[2016-12-30] MEDS: predniSONE 20 MG TAB PO SCH (08:15)
--- NOTE | 2016-12-30 08:15 | XR ---
EXAMINATION TYPE: XR chest 1V DATE OF EXAM: 12/30/2016 6:36 AM COMPARISON: Prior chest x-ray 26 December 2016 HISTORY: Shortness of breath TECHNIQUE: Single frontal view of the chest is obtained. FINDINGS: Pacemaker is stable. Retrocardiac density persists. No evident pneumothorax. There are ove rlying cardiac leads. Heart size is increased. Some improvement in aeration is suspected. IMPRESSION: Improvement in aeration. Follow-up PA and lateral chest x-ray suggested.
[2016-12-30] MEDS: IPRATROPIUM-ALBUTEROL 3 ML NEB INHALATION SCH ×4 (09:35→19:25)
[2016-12-30] MEDS: BUDESONIDE 0.5 MG/2 ML NEBU INHALATION SCH ×2 (09:35→19:25)
[2016-12-30 12:03] LABS: Glucose,Whole Blood 305 mg/dL (75-99)
--- NOTE | 2016-12-30 12:30 | P.PN ---
Subjective 86-year-old female being seen in the intensive care unit this morning family at bedside. Patient was transferred to the intensive care unit from the F floor last evening for worsening of the renal status and elevated potassium with increased confusion patients being followed by multiple consulting physicians recommendations noted appreciated and reviewed nursing reports patient has had poor caloric intake and has been refusing her diet states she is not hungry and does not want to eat. Patient has been followed by cardiology service has atrial fibrillation which is felt to be chronic has been on anticoagulation but this has been held for the last several days secondary to coagulopathy. Cardiology indicated there is no further cardiac workup indicated at this time the heart rate has been controlled and patient is anticoagulated Additionally the patient was seen by BLOCK TRIMMER on December 29 for a complete pelvic prolapse. This is a chronic condition. Patient was apparently fitted with a pessary device by a design technology teacher in January 2016. The patient does not recall what happened to the pessary and whether it helped or not. Patient does have a prolapse which is able to be reduced. BLOCK TRIMMER indicated there was no further recommendations at this time and I do not believe that the prolapse created any urethra obstruction. Patient does have an indwelling Jauregui catheter in place Infectious disease consultation was requested patients being seen by Dr. Quezada. Patient was treated initially for sepsis due to tracheal bronchitis and pneumonia. Sputum came back positive for H influenza likely the causative organism. There is been a slight jump the white count but no fever per and infectious disease recommendations antibiotic have been initiated patient has a penicillin ALLERGY but has been able to tolerate the Rocephin Additionally patient is being seen by Dr. pierre for the acute renal failure with recommendations noted all nephrotoxin meds have been held patient's been started on IV hydration The patient and the family indicated that by advance directives patient is a no CODE STATUS Objective - Vital Signs Vital signs: Vital Signs Temp 97.9 F 12/30/16 12:00 Pulse 71 12/30/16 12:00 Resp 17 12/30/16 12:00 BP 113/59 12/30/16 12:00 Pulse Ox 97 12/30/16 12:00 Intake & Output 12/29/16 12/30/16 12/30/16 18:59 06:59 18:59 Intake Total 2300 850 Output Total 150 150 255 Balance -150 2150 595 Weight 55.9 kg Intake: IV 1200 750 Dextrose 5% in Water 1, 1200 750 000 ml @ 150 mls/hr IV . Q7H40M CLAUDIA with Sodium Bicarb (1 Meq/ml) 150 ml Rx#:[id number] Intake, IV Titration 1100 100 Amount Calcium Gluconate 1,000 100 mg In Sodium Chloride 0.9 % 100 ml @ 100 mls/hr IVPB ONCE ONE Rx#: [id number] Sodium Chloride 0.9% 1, 1000 000 ml @ 999 mls/hr IV . Q1H1M ONE Rx#:[id number] cefTRIAXone 1,000 mg In 100 Sodium Chloride 0.9% 50 ml @ 100 mls/hr IVPB Q24HR CLAUDIA Rx#:[id number] Output: Urine 150 150 255 Other: Voiding Method Indwelling Catheter Indwelling Catheter Indwelling Catheter # Voids 0 # Bowel Movements 1 - Exam Physical exam 86-year-old female resting in bed pleasant sitting up in bed in the ICU family at bedside alert oriented 3 Lungs essentially clear adequate air movement no audible wheezing rail rhonchi no cough noted Heart S1-S2 audible irregular monitor atrial fibrillation rate in the 70s no murmur noted denying chest pain Abdomen soft nontender not able to elicit any facial grimacing with palpitation to the abdominal wall indwelling Jauregui catheter in place Vagina large grape size prolapsed cyst able to push back up into the vaginal vault Extremities no edema noted - Labs CBC & Chem 7: 12/30/16 04:52 12/30/16 04:52 Labs: Abnormal Lab Results - Last 24 Hours (Table) 12/29/16 12/29/16 12/29/16 Range/Units 08:52 08:52 14:03 WBC 15.4 H (3.8-10.6) k/uL Neutrophils # 13.5 H (1.3-7.7) k/uL Neutrophils # (Manual) (1.3-7.7) k/uL Lymphocytes # 0.8 L (1.0-4.8) k/uL Lymphocytes # (Manual) (1.0-4.8) k/uL PT (9.0-12.0) sec Potassium 6.0 H 6.6 H* (3.5-5.1) mmol/L Chloride (98-107) mmol/L Carbon Dioxide 12 L 8 L* (22-30) mmol/L BUN 106 H* 119 H* (7-17) mg/dL Creatinine 5.40 H* 5.90 H* (0.52-1.04) mg/dL Glucose 138 H (74-99) mg/dL POC Glucose (mg/dL) (75-99) mg/dL Plasma Lactic Acid Krishan (0.7-2.0) mmol/L Calcium (8.4-10.2) mg/dL Phosphorus (2.5-4.5) mg/dL Total Bilirubin 1.5 H (0.2-1.3) mg/dL AST (14-36) U/L Alkaline Phosphatase (38-126) U/L Total Protein 6.2 L (6.3-8.2) g/dL Albumin (3.5-5.0) g/dL Urine Appearance (Clear) Urine Protein (Negative) Amorphous Sediment (None) /hpf Hyaline Casts (0-2) /lpf Urine Mucus (None) /hpf 12/29/16 12/29/16 12/29/16 Range/Units 14:30 17:30 18:03 WBC (3.8-10.6) k/uL Neutrophils # (1.3-7.7) k/uL Neutrophils # (Manual) (1.3-7.7) k/uL Lymphocytes # (1.0-4.8) k/uL Lymphocytes # (Manual) (1.0-4.8) k/uL PT (9.0-12.0) sec Potassium (3.5-5.1) mmol/L Chloride (98-107) mmol/L Carbon Dioxide (22-30) mmol/L BUN (7-17) mg/dL Creatinine (0.52-1.04) mg/dL Glucose (74-99) mg/dL POC Glucose (mg/dL) 66 L 67 L (75-99) mg/dL Plasma Lactic Acid Krishan (0.7-2.0) mmol/L Calcium (8.4-10.2) mg/dL Phosphorus (2.5-4.5) mg/dL Total Bilirubin (0.2-1.3) mg/dL AST (14-36) U/L Alkaline Phosphatase (38-126) U/L Total Protein (6.3-8.2) g/dL Albumin (3.5-5.0) g/dL Urine Appearance Cloudy H (Clear) Urine Protein Trace H (Negative) Amorphous Sediment Occasional H (None) /hpf Hyaline Casts 13 H (0-2) /lpf Urine Mucus Rare H (None) /hpf 12/29/16 12/29/16 12/30/16 Range/Units 19:32 19:32 00:05 WBC (3.8-10.6) k/uL Neutrophils # (1.3-7.7) k/uL Neutrophils # (Manual) (1.3-7.7) k/uL Lymphocytes # (1.0-4.8) k/uL Lymphocytes # (Manual) (1.0-4.8) k/uL PT (9.0-12.0) sec Potassium 6.5 H* 5.2 H (3.5-5.1) mmol/L Chloride 96 L (98-107) mmol/L Carbon Dioxide 6 L* 11 L (22-30) mmol/L BUN 127 H* (7-17) mg/dL Creatinine 6.20 H* (0.52-1.04) mg/dL Glucose 73 L 221 H (74-99) mg/dL POC Glucose (mg/dL) (75-99) mg/dL Plasma Lactic Acid Krishan 7.5 H* (0.7-2.0) mmol/L Calcium 8.3 L 8.1 L (8.4-10.2) mg/dL Phosphorus (2.5-4.5) mg/dL Total Bilirubin 2.1 H (0.2-1.3) mg/dL AST 70 H 43 H (14-36) U/L Alkaline Phosphatase 201 H (38-126) U/L Total Protein 5.7 L (6.3-8.2) g/dL Albumin 3.3 L (3.5-5.0) g/dL Urine Appearance (Clear) Urine Protein (Negative) Amorphous Sediment (None) /hpf Hyaline Casts (0-2) /lpf Urine Mucus (None) /hpf 12/30/16 12/30/16 12/30/16 Range/Units 04:52 04:52 04:52 WBC 13.4 H (3.8-10.6) k/uL Neutrophils # (1.3-7.7) k/uL Neutrophils # (Manual) 11.9 H (1.3-7.7) k/uL Lymphocytes # (1.0-4.8) k/uL Lymphocytes # (Manual) 0.7 L (1.0-4.8) k/uL PT 25.8 H (9.0-12.0) sec Potassium (3.5-5.1) mmol/L Chloride 96 L (98-107) mmol/L Carbon Dioxide 12 L (22-30) mmol/L BUN 128 H* (7-17) mg/dL Creatinine 6.08 H* (0.52-1.04) mg/dL Glucose 239 H (74-99) mg/dL POC Glucose (mg/dL) (75-99) mg/dL Plasma Lactic Acid Krishan (0.7-2.0) mmol/L Calcium 7.5 L (8.4-10.2) mg/dL Phosphorus 9.1 H* (2.5-4.5) mg/dL Total Bilirubin (0.2-1.3) mg/dL AST (14-36) U/L Alkaline Phosphatase (38-126) U/L Total Protein 5.3 L (6.3-8.2) g/dL Albumin 3.0 L (3.5-5.0) g/dL Urine Appearance (Clear) Urine Protein (Negative) Amorphous Sediment (None) /hpf Hyaline Casts (0-2) /lpf Urine Mucus (None) /hpf 12/30/16 12/30/16 12/30/16 Range/Units 07:49 10:05 12:01 WBC (3.8-10.6) k/uL Neutrophils # (1.3-7.7) k/uL Neutrophils # (Manual) (1.3-7.7) k/uL Lymphocytes # (1.0-4.8) k/uL Lymphocytes # (Manual) (1.0-4.8) k/uL PT (9.0-12.0) sec Potassium (3.5-5.1) mmol/L Chloride (98-107) mmol/L Carbon Dioxide (22-30) mmol/L BUN (7-17) mg/dL Creatinine (0.52-1.04) mg/dL Glucose (74-99) mg/dL POC Glucose (mg/dL) 297 H 305 H (75-99) mg/dL Plasma Lactic Acid Krishan 6.7 H* (0.7-2.0) mmol/L Calcium (8.4-10.2) mg/dL Phosphorus (2.5-4.5) mg/dL Total Bilirubin (0.2-1.3) mg/dL AST (14-36) U/L Alkaline Phosphatase (38-126) U/L Total Protein (6.3-8.2) g/dL Albumin (3.5-5.0) g/dL Urine Appearance (Clear) Urine Protein (Negative) Amorphous Sediment (None) /hpf Hyaline Casts (0-2) /lpf Urine Mucus (None) /hpf Microbiology - Last 24 Hours (Table) 12/25/16 19:31 Blood Culture - Preliminary Blood No Growth after 96 hours 12/29/16 14:30 Urine Culture - Preliminary Urine,Catheterized Assessment and Plan Plan: Impression Present on admission shortness of breath suspect multifocal with acute hypoxic respiratory failure sepsis suspect due to community-acquired left lower lobe pneumonia with tracheal bronchitis with a positive sputum of Haemophilus influenza Present on admission Acute on chronic respiratory failure with hypoxic with acute respiratory distress use of accessory muscles to breathe with audible wheezing Chronic persist atrial fibrillation on anticoagulation History of asthma Elevated d-dimer with a CAT scan of the chest negative for pulmonary emboli Hyperlipidemia Present on admission coagulopathy Coumadin induced INR 4.9 Coumadin on hold Acute renal failure suspect due to poor oral intake hypovolumic Severe electrolyte abnormality Hyperkalemia Mild aortic stenosis per echo 2015 Acute on chronic complete vaginal prolapse Hyperglycemic episodes suspect steroid-induced Plan Continue with a no CODE STATUS Hold all nephrotoxin meds IV fluid at 75 an hour monitor response Consult infectious disease recommendations antibiotics Await BLOCK TRIMMER's input Continue with pulmonology's recommendations Per cardiology patient is felt to be stable from that perspective and that the patient could be discharged within the next 24 hours DVT and GI prophylaxi Monitor blood sugars restart oral hypoglycemic meds encouraging oral intake Continue to hold the Coumadin Hold the Coumadin today and check an INR in the morning Titrate the O2 down to keep a sat greater than 90 The above dictated assessment and findings were discussed with Dr. Sibley Impression and the plan of care have been dictated as directed. Chloe Reddy nurse practitioner acting as a scribe for Dr. Sibley
--- NOTE | 2016-12-30 12:51 | CONS ---
DATE OF CONSULTATION: 12/30/2016 Patient is seen for evaluation of early renal failure. HISTORY OF PRESENT ILLNESS: Patient is an 86-year-old white female who was initially admitted to the hospital on 12/25/2016 with complaints of fever. She was admitted for treatment of pneumonia. Sputum culture grew Haemophilus influenza. Serum creatinine on initial admission was at 0.8 mg/dL, it did go up to 5.4 on 12/29/2016 and then up to 6.2 yesterday and today it is at 6.08. Patient had a CT of the chest with IV contrast on 12/26/2016. She was also on lisinopril. Her blood pressure was low yesterday; however, prior to that, blood pressure was not significantly low, mainly running around 130 systolic. Yesterday, patient have significantly low urine output. She was also severely acidotic with CO2 down to 6 mEq/L and patient was transferred to the ICU and started on a bicarb drip. She has not had any significant diarrhea. She does have history of uterine prolapse and a Jauregui catheter was inserted, and there is not much urine output initially. Urine output has now improved in the ICU. Patient is maintained on a bicarb drip at 150 mL an hour. She was also hyperkalemic with potassium of 6.6 which was treated medically. PAST MEDICAL HISTORY: History of type 2 diabetes, hypertension, breast cancer, coronary artery disease, history of A. fib, and hyperlipidemia. PAST SURGICAL HISTORY: Appendectomy, breast surgery, cholecystectomy, hysterectomy, pacemaker placement. Social history is negative for smoking. Allergies include PENICILLIN, which causes rash and swelling. Medications at home included lisinopril, pravastatin, Coumadin, Tylenol, clindamycin, Janumet, melatonin, Singulair. Review of systems as per HPI. Other systems negative. On examination, patient is comfortable, she is not in any acute distress. Her mentation has been fairly intact as per nursing staff. Blood pressure was 115/48, heart rate 60. She is afebrile. Examination of the heart, S1 and S2. Examination of the lungs, bilateral breath sounds are heard. Abdomen is soft, nontender. Examination of the lower extremities shows no evidence of edema. [employer] O[employer] exam is grossly intact. Patient has been moving all 4 extremities. Labs show sodium 143, potassium 4.5, chloride 96, CO2 of 12, BUN 128, serum creatinine 6.08. Repeat lactic acid was at 6.7, phosphorus 9.1, albumin 3.0. UA yesterday shows trace protein, no blood, WBC is 5, RBC is 1. ASSESSMENT: 1. Acute kidney injury, acute tubular necrosis, currently nonoliguric. Initially was oliguric. There is no evidence of obstructive uropathy from prolapse. Ultrasound shows no hydronephrosis and kidney size is reasonable, bilaterally. The lisinopril has already been discontinued. I will continue with IV fluids. The urine output has now picked up and I will continue with the Jauregui catheter as well. 2. Anion-gap metabolic acidosis secondary to renal failure as well as lactic acidosis. 3. Pneumonia is likely underlying sepsis, maintained on Levaquin, now on Rocephin. 4. Hyperphosphatemia, secondary to advanced renal failure, will start phosphate binders when patient is eating. 5. History of atrial fibrillation, maintained on anticoagulation. Rate is controlled. 6. Hyperkalemia associated with acute kidney injury, currently significantly improved. PLAN: Continue current dose of IV bicarb. Repeat labs in the a.m. Continue with indwelling Jauregui catheter. Avoid nephrotoxic agents and repeat labs in the a.m. Thank you for this consultation. Will continue to follow the patient with you during her hospitalization.
[2016-12-30 17:36] LABS: Glucose,Whole Blood 170 mg/dL (75-99)
[2016-12-30] MEDS: WARFARIN 5 MG TAB PO SCH (17:58)
--- NOTE | 2016-12-30 19:16 | CONS ---
DATE OF CONSULTATION: 12/30/2016 REASON FOR CONSULT: Pneumonia, sepsis. HISTORY OF PRESENTING ILLNESS: Ms. Becca Quiñones is seen, evaluated and examined in the ICU for a critical care evaluation. Family is present at bedside. Care plan discussed with the family at length. Also discussed with nurse services and primary service. This patient has been admitted to the hospital with ongoing problems associated with fever and shortness of breath which started one day prior to coming into the hospital. Patient of note has been hospitalized on December 25. In addition, patient has been having cough with sputum production. Patient was admitted on the medical floor due to problem associated with progressive renal failure and hyperkalemia. Patient remains very weak with very p.o. intake, barely opens eyes. Family is contemplating at this point of time for aggressive treatment versus more conservative care and hospice. Most of the data has been obtained from the chart, as patient unable to give any detailed history. Past medical history is significant for: 1. Atrial fibrillation. 2. History of pelvic prolapse. 3. Pneumonia. 4. Purulent tracheobronchitis. 5. Haemophilus influenza recently found. 6. Chronic renal failure. 7. Coronary artery disease. 8. Diabetes mellitus. 9. Hypertension. 10. Dyslipidemia. 11. Breast cancer. PAST SURGICAL HISTORY: Appendectomy, cholecystectomy, hysterectomy, history of permanent pacemaker. FAMILY HISTORY AND SOCIAL HISTORY: No history of substance use, alcohol consumption or smoking. ALLERGIES INCLUDE PENICILLIN. Medications currently in the hospital include: 1. Tylenol as needed. 2. DuoNeb unit dose updraft 4 times a day and as needed. 3. Amlodipine 10 mg daily. 4. Atenolol 50 mg daily. 5. Pulmicort 2 times a day 0.5 mg. 6. Rocephin 1 g daily. 7. Also on sodium bicarb. 8. D5 1 L with ( ) is 150 mL/h. 9. Sliding scale insulin. 10. Melatonin. 11. Singulair. 12. Zofran. 13. Coumadin 5 mg daily. REVIEW OF SYSTEMS: Unable to obtain. On examination, most recent vitals include blood pressure 102/47, respiratory rate of 14, pulse 80, temperature is 98, saturation of 96% on 3L of oxygen. HEENT: Oral mucosa is moist. NECK: Supple. Neck veins are prominent. LUNGS: Bilateral good air entry. A few basal crackles are present. HEART: Irregularly irregular. S1 and S2 audible. Abdomen is soft. EXTREMITIES: Trace edema. NEUROLOGICAL: Rather somnolent, but arousable; opens eyes. Labs are reviewed. The white cell count is 13,400, down from 15,000 yesterday. Hemoglobin 12, hematocrit 38, platelet count 179,000. Sodium is 141, potassium 5.2, which is down from 6.5 yesterday, BUN and creatinine 127 and 6.2. The glucose is 221. Lactic acid level is 6.7 down from 7.5 yesterday. Calcium is 8.1, phosphorus 9.1. AST and ALT are 43 and 44, total bilirubin is 1.0. Urinalysis is fairly unremarkable except a few WBCs, RBCs reports. Culture results and reports are reviewed. Urine and blood culture no growth. Sputum on one is positive for Haemophilus. The chest x-ray performed 12/30/2016 revealed improvement in infiltrates are seen. Ultrasound of the abdomen 12/29/2016 revealed no evidence of hydronephrosis. The CT scan of the chest performed 12/26/2016 which was performed with a dye revealed patchy pneumonic infiltrate in the mid and lower lung monzon, likely pneumonia. IMPRESSION: 1. Acute renal failure, hyperkalemia, likely related to nephrotoxin ( ) acute renal injury. 2. Haemophilus pneumonia. 3. Severe sepsis, metabolic acidosis likely related to acute renal failure and sepsis. PLAN AND RECOMMENDATION: Agree with bicarb drip. Avoid diuretics, gentle rehydration. Continue broad-spectrum antibiotics. Prognosis overall is guarded. Continue supportive care. Of note that family has expressed that Dr. Patel follow this patient in the outpatient setting. Dr. Patel's service has been notified.
--- NOTE | 2016-12-30 19:57 | PN ---
DATE OF SERVICE: 12/30/2016 Reason for follow-up: Haemophilus influenza pneumonia. INTERVAL HISTORY: The patient is afebrile. She has been transferred out of the ICU. She is hemodynamically stable, breathing comfortably. Denies any chest pain. Occasional cough. No abdominal pain. No nausea or vomiting. No diarrhea. On examination, blood pressure is 103/47, pulse of 85, temperature 98.5. She is 97% on 2 liters nasal cannula. General description is an elderly female lying in bed in no distress. RESPIRATORY SYSTEM: Unlabored breathing. Clear to auscultation anteriorly. HEART: S1, S2. Regular rate and rhythm. ABDOMEN: Soft, no tenderness. EXTREMITIES: No edema of feet. LABS: Hemoglobin is 12.8, white count 13.4. BUN of 120, creatinine 6.08. DIAGNOSTIC IMPRESSION AND PLAN: Patient with Haemophilus influenza pneumonia for which the patient can continue on Rocephin which the patient has tolerated without any problem. Kidney for which the patient will be monitored by nephrology. Daughter was present at beside. All their questions and concerns were answered. DEJAN
[2016-12-30 21:11] LABS: Glucose,Whole Blood 115 mg/dL (75-99)
[2016-12-31 05:53] LABS: CH 30.3; CHCM 34.8; HCT 36.6 % (34.0-46.0); HDW 2.42; HGB 12.4 gm/dL (11.4-16.0); Immature Gran Flag Slight; MCH 29.7 pg (25.0-35.0); MCV 87.2 fL (80.0-100.0); Mean Platelet Volume 8.1; RBC 4.19 m/uL (3.80-5.40); RDW 13.9 % (11.5-15.5); WBC 19.2 k/uL (3.8-10.6); WBC (Perox) 19.95
[2016-12-31 06:09] LABS: Magnesium 1.5 mg/dL (1.6-2.3); Phosphorous 6.5 mg/dL (2.5-4.5); Potassium 3.1 mmol/L (3.5-5.1)
[2016-12-31 06:13] LABS: Add Differential Manual Differential
[2016-12-31 06:17] LABS: Manual Review Performed; Nucleated Red Blood Cells 0 /100 WBC (0-0); Total Cells Counted 200
[2016-12-31 06:20] LABS: Calcium 6.2 mg/dL (8.4-10.2)
[2016-12-31 07:21] LABS: Glucose,Whole Blood 291 mg/dL (75-99)
[2016-12-31] MEDS ORDERED: POTASSIUM CHLORIDE ER 20 MEQ TAB.ER PO STA (08:34)
--- NOTE | 2016-12-31 08:34 | XR ---
EXAMINATION TYPE: XR chest 1V DATE OF EXAM: 12/31/2016 6:39 AM HISTORY: Shortness of breath. COMPARISON: December 30, 2016 TECHNIQUE: Single view of the chest is submitted. FINDINGS: Demonstrated are scattered senescent parenchymal change. There is improving aeration left lower lobe. The heart is stable. Hilar and mediastinal structures are within normal limits. Degenerative changes are seen of the dorsal spine. IMPRESSION: 1. Improving aeration left lower lobe.
[2016-12-31] MEDS: IPRATROPIUM-ALBUTEROL 3 ML NEB INHALATION SCH ×4 (08:40→23:01)
[2016-12-31] MEDS: BUDESONIDE 0.5 MG/2 ML NEBU INHALATION SCH ×2 (08:40→23:01)
[2016-12-31] MEDS: DEXTROSE 5% IN WATER 1,000 ML with SODIUM BICARB (1 MEQ/ML) 150 ML IV SCH (09:16)
[2016-12-31 09:21] LABS: Glucose,Whole Blood 307 mg/dL (75-99)
[2016-12-31] MEDS: MAGNESIUM SULFATE-D5W PMX 1 GM in DEXTROSE/WATER 1 100ML.BAG IVPB SCH ×2 (10:03→12:22)
[2016-12-31] MEDS: SODIUM CHLORIDE 0.9% 1,000 ML IV SCH (10:06)
[2016-12-31] MEDS: PANTOPRAZOLE 40 MG/10 ML VIAL IVP SCH ×2 (10:07→20:51)
[2016-12-31] MEDS: INSULIN REGULAR 100 UNIT/ML VIAL SQ SCH ×3 (10:07→17:50)
--- NOTE | 2016-12-31 10:35 | PN ---
DATE OF SERVICE: 12/31/2016 Mrs. Becca Quiñones is seen, evaluated and examined in the ICU. She is relatively more awake and alert. Her hemodynamic status is stable. She has been rehydrated with bicarb drip, now the IV fluids have been switched to normal saline. Her appetite has been poor. She is making urine now. Her metabolic acidosis is improved. Lactic acid level is down. Her last set of vitals include blood pressure is 138/65, respiratory rate 18, pulse 91, temperature 98, saturation 96% on 3 L oxygen. HEENT: Unremarkable. NECK: Supple. LUNGS: Good air entry bilaterally. HEART: Regular rate and rhythm. S1 and S2 audible. ABDOMEN: Soft. No rebound or rigidity. EXTREMITIES: +1 peripheral pulses. NEUROLOGICAL EXAMINATION: Awake and alert. Chest x-ray shows significant improvement in left lower lobe infiltrate. LABORATORY DATA: Reviewed. White cell count 19,200, hemoglobin 12, hematocrit 36, platelet count 211,000. Sodium 139, potassium 3.1, BUN and creatinine 134 and 5.16. Lactic acid level is down to 3.3. Current medications reviewed and include Tylenol as needed, DuoNeb updraft 4 times a day; also on Norvasc 10 mg daily, atenolol 50 mg daily, Pulmicort 2 times a day, calcium acetate, calcium carbonate, Rocephin 1 gram daily, sliding scale insulin, Tradjenta, magnesium, also on Protonix, electrolyte replacement protocol, Coumadin 5 mg daily. Laboratory data reviewed. Medications reviewed as well. IMPRESSION: 1. Severe sepsis associated with multifactorial process including left lower lobe pneumonia related to Haemophilus as well as acute renal failure. Renal function slowly and progressively improving. 2. Leukocytosis related to overwhelming sepsis, but lactic acid level is down to 3.3. 3. Generalized weakness and medical debility. We will plan to continue supportive care. Follow clinical course closely. Further recommendations pending. Plan of care as per clinical response of the patient.
[2016-12-31] MEDS: INSULIN LISPRO (humaLOG) 300 UNIT/3 ML VIAL SQ SCH ×4 (10:44→21:03)
[2016-12-31] MEDS: CALCIUM CARBONATE 500 MG CHEWABLE PO SCH ×2 (11:25→12:25)
[2016-12-31] MEDS: MONTELUKAST 10 MG TAB PO SCH ×2 (11:25→12:25)
[2016-12-31] MEDS: PRAVASTATIN SODIUM 20 MG TAB PO SCH ×2 (11:25→12:25)
[2016-12-31] MEDS: amLODIPine 10 MG TAB PO SCH ×2 (11:25→12:24)
[2016-12-31] MEDS: CALCIUM ACETATE 667 MG CAP PO SCH ×4 (11:25→17:50)
[2016-12-31] MEDS: ATENOLOL 50 MG TAB PO SCH ×2 (11:25→12:24)
[2016-12-31] MEDS: LINAGLIPTIN 5 MG TABLET PO SCH ×2 (11:25→12:25)
[2016-12-31] MEDS: predniSONE 20 MG TAB PO SCH ×2 (11:25→12:25)
--- NOTE | 2016-12-31 11:27 | PN ---
Patient is seen for followup for acute kidney injury. She was severely acidotic and was maintained on bicarb. Her serum creatinine had gone up to 6.2 mg/dL and patient was severely oliguric. Now she has improved renal function with improving urine output at about 100 mL an hour now and acidosis has improved. Patient is awake. She is arousable, but she is not eating. She states she cannot swallow and when we tried to give her some water there was some coughing noted. On examination today, blood pressure is 138/66, heart rate 91 per minute. She is afebrile. EXAMINATION OF THE HEART: S1 and S2. EXAMINATION OF THE LUNGS: Bilateral breath sounds are heard. ABDOMEN: Soft, nontender. Examination of lower extremities shows no significant edema. Labs show sodium 139, potassium 3.1, CO2 is 39. BUN 134, serum creatinine 5.1. Calcium 6.2. Lactic acid down to 3.3. Magnesium 1.5. Phosphorus 6.5. ASSESSMENT: 1. Acute kidney injury, acute tubular necrosis, currently nonoliguric with improving renal function. Continue with IV fluids but change to normal saline. 2. Severe metabolic acidosis secondary to sepsis and lactic acidosis, currently resolved. Will discontinue IV bicarb. 3. Hyperphosphatemia secondary to advanced renal failure, maintained on PhosLo. 4. Haemophilus influenzae pneumonia. Maintained on antibiotics. PLAN: Change IV fluids to normal saline. Speech eval to rule out aspiration and try to encourage increased oral intake. If it is safe, replace potassium and magnesium and calcium and repeat labs in a.m. Continue to avoid nephrotoxic agents.
[2016-12-31 12:12] LABS: Glucose,Whole Blood 333 mg/dL (75-99)
[2016-12-31 13:13] LABS: Glucose,Whole Blood 266 mg/dL (75-99)
[2016-12-31] MEDS: POTASSIUM CHLORIDE 20 MEQ, LIDOCAINE 2% INJ 20 MG in SODIUM CHLORIDE 0.9% 100 ML IVPB SCH ×3 (13:25→15:43)
--- NOTE | 2016-12-31 14:19 | P.PN ---
Subjective 86-year-old female being seen on rounds and the ICU with the attending this morning is much more awake and alert. Patient is being followed by nephrology the creatinine is up to 5.16 poor urine output patient is reporting no appetite but states she cannot swallow nursing reports that the patient is refusing her medication and is refusing to eat. Patient is stating she is not hungry. Objective - Vital Signs Vital signs: Vital Signs Temp 97.3 F L 12/31/16 12:00 Pulse 94 12/31/16 12:00 Resp 22 12/31/16 12:00 BP 151/78 12/31/16 12:00 Pulse Ox 97 12/31/16 12:00 Intake & Output 12/30/16 12/31/16 12/31/16 18:59 06:59 18:59 Intake Total 1750 1800 580 Output Total 515 1585 1350 Balance 1235 215 -770 Weight 55.9 kg 59 kg Intake: IV 1650 1800 280 Dextrose 5% in Water 1, 1650 1800 000 ml @ 150 mls/hr IV . [id number] CLAUDIA with Sodium Bicarb (1 Meq/ml) 150 ml Rx#:[id number] Sodium Chloride 0.9% 1, 280 000 ml @ 70 mls/hr IV . [id number] CLAUDIA Rx#:[id number] Intake, IV Titration 100 300 Amount Magnesium Sulfate-D5w Pmx 200 1 gm In Dextrose/Water 1 100ml.bag @ 100 mls/hr IVPB Q1H CLAUDIA Rx#: [id number] cefTRIAXone 1,000 mg In 100 100 Sodium Chloride 0.9% 50 ml @ 100 mls/hr IVPB Q24HR CLAUDIA Rx#:[id number] Output: Urine 515 1585 1350 Other: Voiding Method Indwelling Catheter Indwelling Catheter # Bowel Movements 2 1 - Exam Physical exam 86-year-old female resting in bed is oriented to self and place. Patient is stating she is not hungry and is not going to eat nursing reports patient will not take her medication and has been refusing her diet when questioning the patient patient indicated that she cannot swallow. Apparently when nursing tried to give her some water there was some coughing noted Lungs diminished at the bases bilaterally no wheezing noted on 3 L sats are 97% Heart S1-S2 audible irregular Abdomen soft indwelling Jauregui catheter in place poor caloric intake no stooling no nausea vomiting Extremities no edema noted - Labs CBC & Chem 7: 12/31/16 05:20 12/31/16 05:20 Labs: Abnormal Lab Results - Last 24 Hours (Table) 12/30/16 12/30/16 12/31/16 Range/Units 17:33 21:09 05:20 WBC 19.2 H (3.8-10.6) k/uL Neutrophils # (Manual) 16.4 H (1.3-7.7) k/uL Monocytes # (Manual) 1.3 H (0-1.0) k/uL Potassium (3.5-5.1) mmol/L Chloride (98-107) mmol/L Carbon Dioxide (22-30) mmol/L BUN (7-17) mg/dL Creatinine (0.52-1.04) mg/dL Glucose (74-99) mg/dL POC Glucose (mg/dL) 170 H 115 H (75-99) mg/dL Plasma Lactic Acid Krishan (0.7-2.0) mmol/L Calcium (8.4-10.2) mg/dL Phosphorus (2.5-4.5) mg/dL Magnesium (1.6-2.3) mg/dL 12/31/16 12/31/16 12/31/16 Range/Units 05:20 05:20 07:20 WBC (3.8-10.6) k/uL Neutrophils # (Manual) (1.3-7.7) k/uL Monocytes # (Manual) (0-1.0) k/uL Potassium 3.1 L (3.5-5.1) mmol/L Chloride 81 L (98-107) mmol/L Carbon Dioxide 39 H (22-30) mmol/L BUN 134 H* (7-17) mg/dL Creatinine 5.16 H* (0.52-1.04) mg/dL Glucose 259 H (74-99) mg/dL POC Glucose (mg/dL) 291 H (75-99) mg/dL Plasma Lactic Acid Krishan 3.3 H* (0.7-2.0) mmol/L Calcium 6.2 L* (8.4-10.2) mg/dL Phosphorus 6.5 H (2.5-4.5) mg/dL Magnesium 1.5 L (1.6-2.3) mg/dL 02/03/17 02/03/17 02/03/17 Range/Units 09:09 12:10 13:12 WBC (3.8-10.6) k/uL Neutrophils # (Manual) (1.3-7.7) k/uL Monocytes # (Manual) (0-1.0) k/uL Potassium (3.5-5.1) mmol/L Chloride (98-107) mmol/L Carbon Dioxide (22-30) mmol/L BUN (7-17) mg/dL Creatinine (0.52-1.04) mg/dL Glucose (74-99) mg/dL POC Glucose (mg/dL) 307 H 333 H 266 H (75-99) mg/dL Plasma Lactic Acid Krishan (0.7-2.0) mmol/L Calcium (8.4-10.2) mg/dL Phosphorus (2.5-4.5) mg/dL Magnesium (1.6-2.3) mg/dL Microbiology - Last 24 Hours (Table) 12/29/16 14:30 Urine Culture - Final Urine,Catheterized 12/25/16 19:31 Blood Culture - Preliminary Blood No Growth after 120 hours Assessment and Plan Plan: Impression Present on admission shortness of breath suspect multifocal with acute hypoxic respiratory failure sepsis suspect due to community-acquired left lower lobe pneumonia with tracheal bronchitis with a positive sputum of Haemophilus influenza Present on admission Acute on chronic respiratory failure with hypoxic with acute respiratory distress use of accessory muscles to breathe with audible wheezing Chronic persist atrial fibrillation on anticoagulation History of asthma Elevated d-dimer with a CAT scan of the chest negative for pulmonary emboli Hyperlipidemia Present on admission coagulopathy Coumadin induced INR 4.9 Coumadin on hold Acute renal failure suspect due to poor oral intake hypovolumic Severe electrolyte abnormality Hyperkalemia and hypomagnesemia persist Mild aortic stenosis per echo 2015 Acute on chronic complete vaginal prolapse Hyperglycemic episodes suspect steroid-induced Type 2 diabetes insulin requiring Plan Nutritional supplements Swallow eval with aspiration precautions Check a pro time and INR in the morning Continue with a no CODE STATUS Hold all nephrotoxin meds IV fluid at 75 an hour monitor response Consult infectious disease recommendations antibiotics IV Rocephin as ordered Okay to transfer patient to the fifth or sixth or Continue with pulmonology's recommendations Per cardiology patient is felt to be stable from that perspective and that the patient could be discharged within the next 24 hours DVT and GI prophylaxi Monitor blood sugars restart oral hypoglycemic meds encouraging oral intake Hold the Coumadin today and check an INR in the morning Titrate the O2 down to keep a sat greater than 90 The above dictated assessment and findings were discussed with Dr. Sibley Impression and the plan of care have been dictated as directed. Chloe Reddy nurse practitioner acting as a scribe for Dr. Sibley
[2016-12-31 15:53] LABS: INR 3.1 (<1.1); Prothrombin Time 29.8 sec (9.0-12.0)
[2016-12-31 16:36] LABS: Glucose,Whole Blood 74 mg/dL (75-99)
[2016-12-31] MEDS: WARFARIN 5 MG TAB PO SCH (17:49)
--- NOTE | 2016-12-31 20:21 | PN ---
DATE OF SERVICE: 12/31/2016 Reason for follow-up: Haemophilus influenza pneumonia. INTERVAL HISTORY: The patient is afebrile. She has been hemodynamically stable, breathing comfortably. Denies any chest pain or cough. No abdominal pain. No diarrhea per the R.N. Patient seems to be refusing most of her medication. On examination, her blood pressure is 139/69 with a pulse of 81, temperature 97.3. She is 98% on 3 L. General description is an elderly female lying in bed in no distress. RESPIRATORY SYSTEM: Unlabored breathing. Clear to auscultation anteriorly. HEART: S1, S2. Regular rate and rhythm. ABDOMEN: Soft, no tenderness. LABS: Hemoglobin is 12.4, white count 19.2, BUN 134, creatinine 5.16. DIAGNOSTIC IMPRESSION AND PLAN: Patient with Haemophilus influenzae pneumonia for which the patient will continue on Rocephin at this time, still awaiting for the sensitivities. Slight jump in the white count which is more likely multifactorial, possible hemoconcentration as the patient is not running any fever and does not look toxic. Continue supportive care.
[2016-12-31] MEDS: MELATONIN 5 MG TABLET PO SCH (20:51)
[2016-12-31 21:01] LABS: Glucose,Whole Blood 76 mg/dL (75-99)
[2017-01-01] MEDS: SODIUM CHLORIDE 0.9% 1,000 ML IV SCH ×2 (06:02→13:07)
[2017-01-01 06:52] LABS: Glucose,Whole Blood 249 mg/dL (75-99)
--- NOTE | 2017-01-01 07:36 | XR ---
EXAMINATION TYPE: XR chest 1V DATE OF EXAM: 01/01/2017 7:06 AM HISTORY: Shortness of breath. COMPARISON: To 317 TECHNIQUE: Single view of the chest is submitted. FINDINGS: Demonstrated are scattered senescent parenchymal change. There is left basilar increased opacity which may reflect pleural thickening, small effusion and/or d eveloping infiltrate. The heart is stable. Hilar and mediastinal structures are within normal limits. Degenerative changes are seen of the dorsal spine. IMPRESSION: 1. There is left basilar increased opacity which may reflect pleural thickening, small effusion and/ or developing infiltrate.
[2017-01-01 07:42] LABS: Basophils # (A) 0.2 k/uL (0-0.2); Basophils % (A) 1 %; CHCM 33.3; Eosinophils % (A) 0 %; HCT 40.4 % (34.0-46.0); HDW 2.46; HGB 13.2 gm/dL (11.4-16.0); Luc % (Auto) 1; Lymphocytes # (A) 0.3 k/uL (1.0-4.8); Lymphocytes % (A) 2 %; MCH 29.4 pg (25.0-35.0); MCHC 32.6 g/dL (31.0-37.0); MCV 90.3 fL (80.0-100.0); Mean Platelet Volume 8.7; Monocytes # (A) 1.2 k/uL (0-1.0); Monocytes % (A) 9 %; Neutrophils # (A) 11.8 k/uL (1.3-7.7); Neutrophils % (A) 87 %; RBC 4.47 m/uL (3.80-5.40); RDW 13.6 % (11.5-15.5); WBC 13.6 k/uL (3.8-10.6); WBC (Perox) 14.14
[2017-01-01 07:56] LABS: INR 3.4 (<1.1); Prothrombin Time 32.7 sec (9.0-12.0)
[2017-01-01 08:09] LABS: Calcium 7.1 mg/dL (8.4-10.2); Magnesium 1.9 mg/dL (1.6-2.3); Phosphorous 4.5 mg/dL (2.5-4.5)
[2017-01-01 08:21] LABS: Potassium 2.9 mmol/L (3.5-5.1)
[2017-01-01] MEDS: CALCIUM ACETATE 667 MG CAP PO SCH ×3 (08:46→18:26)
[2017-01-01] MEDS: ATENOLOL 50 MG TAB PO SCH (08:46)
[2017-01-01] MEDS: LINAGLIPTIN 5 MG TABLET PO SCH (08:47)
[2017-01-01] MEDS: CALCIUM CARBONATE 500 MG CHEWABLE PO SCH (08:47)
[2017-01-01] MEDS: MONTELUKAST 10 MG TAB PO SCH (08:48)
[2017-01-01] MEDS: PANTOPRAZOLE 40 MG/10 ML VIAL IVP SCH ×2 (08:48→22:14)
[2017-01-01] MEDS: amLODIPine 10 MG TAB PO SCH (08:49)
[2017-01-01] MEDS: PRAVASTATIN SODIUM 20 MG TAB PO SCH (08:49)
[2017-01-01] MEDS ORDERED: INSULIN GLARGINE 100 UNIT/ML 10 ML VIAL SQ SCH (09:00)
[2017-01-01] MEDS: INSULIN REGULAR 100 UNIT/ML VIAL SQ SCH ×2 (09:05→13:05)
[2017-01-01] MEDS: INSULIN LISPRO (humaLOG) 300 UNIT/3 ML VIAL SQ SCH ×4 (09:06→22:13)
[2017-01-01] MEDS ORDERED: POTASSIUM CHLORIDE ORAL LIQUID 40 MEQ/30 ML CUP PO ONE ×2 (09:30→11:00)
[2017-01-01] MEDS: BUDESONIDE 0.5 MG/2 ML NEBU INHALATION SCH ×2 (09:31→18:54)
[2017-01-01] MEDS: IPRATROPIUM-ALBUTEROL 3 ML NEB INHALATION SCH ×4 (09:31→18:54)
--- NOTE | 2017-01-01 11:26 | P.PN ---
Subjective Principal diagnosis: Tracheobronchitis and pneumonia This 86-year-old female was admitted with complaints of shortness of breath and cough. Patient also was found to have atrial fibrillation which is chronic in nature. Patient was seen and examined this morning, she is having some issues with urinating, she does have a vaginal prolapse, catheterization in place, family member at bedside. From cardiology's perspective her heart rate is controlled and she is on anticoagulation. Objective - Vital Signs Vital signs: Vital Signs Temp 95.7 F L 01/01/17 07:00 Pulse 80 01/01/17 09:45 Resp 16 01/01/17 07:00 BP 187/84 01/01/17 07:00 Pulse Ox 97 01/01/17 09:38 Intake & Output 12/31/16 01/01/17 01/01/17 18:59 06:59 18:59 Intake Total 680 2 Output Total 2250 2300 Balance -1570 -2298 Weight 59 kg 59 kg 57.5 kg Intake: IV 280 Sodium Chloride 0.9% 1, 280 000 ml @ 70 mls/hr IV . [id number] CLAUDIA Rx#:[id number] Intake, IV Titration 400 Amount Magnesium Sulfate-D5w Pmx 200 1 gm In Dextrose/Water 1 100ml.bag @ 100 mls/hr IVPB Q1H CLAUDIA Rx#: [id number] Potassium Chloride 20 meq 100 Lidocaine 2% Inj 20 mg In Sodium Chloride 0.9% 100 ml @ 55.5 mls/hr IVPB Q2HR CLAUDIA Rx#:[id number] cefTRIAXone 1,000 mg In 100 Sodium Chloride 0.9% 50 ml @ 100 mls/hr IVPB Q24HR CLAUDIA Rx#:[id number] Oral 2 Output: Urine 2250 2300 Other: Voiding Method Indwelling Catheter Indwelling Catheter Indwelling Catheter # Voids 0 # Bowel Movements 1 - Exam PHYSICAL EXAMINATION: HEENT: Head is atraumatic, normocephalic. Pupils equal, round. Neck is supple. There is no elevated jugular venous pressure. HEART EXAMINATION: Heart S1 and S2 irregularly irregular CHEST EXAMINATION: Lungs are clear to auscultation and precussion. No chest wall tenderness is noted on palpation or with deep breathing. ABDOMEN: Soft, nontender. Bowel sounds are heard. No organomegaly noted. Discomfort in the suprapubic area, EXTREMITIES: 2+ peripheral pulses with no evidence of peripheral edema and no calf tenderness noted. NEUROLOGIC patient is awake, alert and oriented -3. . - Labs CBC & Chem 7: 01/01/17 07:10 01/01/17 07:10 Labs: Abnormal Lab Results - Last 24 Hours (Table) 12/31/16 12/31/16 12/31/16 Range/Units 05:20 12:10 13:12 WBC (3.8-10.6) k/uL Neutrophils # (1.3-7.7) k/uL Lymphocytes # (1.0-4.8) k/uL Monocytes # (0-1.0) k/uL PT 29.8 H (9.0-12.0) sec Sodium (137-145) mmol/L Potassium (3.5-5.1) mmol/L Chloride (98-107) mmol/L Carbon Dioxide (22-30) mmol/L BUN (7-17) mg/dL Creatinine (0.52-1.04) mg/dL Glucose (74-99) mg/dL POC Glucose (mg/dL) 333 H 266 H (75-99) mg/dL Calcium (8.4-10.2) mg/dL 12/31/16 01/01/17 01/01/17 Range/Units 16:30 06:50 07:10 WBC 13.6 H (3.8-10.6) k/uL Neutrophils # 11.8 H (1.3-7.7) k/uL Lymphocytes # 0.3 L (1.0-4.8) k/uL Monocytes # 1.2 H (0-1.0) k/uL PT (9.0-12.0) sec Sodium (137-145) mmol/L Potassium (3.5-5.1) mmol/L Chloride (98-107) mmol/L Carbon Dioxide (22-30) mmol/L BUN (7-17) mg/dL Creatinine (0.52-1.04) mg/dL Glucose (74-99) mg/dL POC Glucose (mg/dL) 74 L 249 H (75-99) mg/dL Calcium (8.4-10.2) mg/dL 01/01/17 01/01/17 Range/Units 07:10 07:10 WBC (3.8-10.6) k/uL Neutrophils # (1.3-7.7) k/uL Lymphocytes # (1.0-4.8) k/uL Monocytes # (0-1.0) k/uL PT 32.7 H (9.0-12.0) sec Sodium 146 H (137-145) mmol/L Potassium 2.9 L* (3.5-5.1) mmol/L Chloride 90 L (98-107) mmol/L Carbon Dioxide 38 H (22-30) mmol/L BUN 100 H* (7-17) mg/dL Creatinine 3.54 H (0.52-1.04) mg/dL Glucose 266 H (74-99) mg/dL POC Glucose (mg/dL) (75-99) mg/dL Calcium 7.1 L (8.4-10.2) mg/dL Microbiology - Last 24 Hours (Table) 12/25/16 19:31 Blood Culture - Final Blood No Growth after 144 hours Assessment and Plan Plan: Assessment and plan #1 symptoms of shortness of breath with associated productive cough of yellow sputum and low-grade fever, suggestive of tracheobronchitis . Patient is currently on IV antibiotics. #2 chronic persistent atrial fibrillation, on Coumadin, INR 3.4. #3 hypertension #4 diabetes #5 hyperlipidemia #6 asthma Plan Potassium 2.9 today, reading replaced. Creatinine 3.5, being followed by nephrology. From cardiology's perspective, we will recommend to continue her current medications. When she is stable for discharge follow-up appointment will be made in the office with Dr. Juarez. DNP note has been reviewed, I agree with a documented findings and plan of care. Patient was seen and examined.
[2017-01-01 11:38] LABS: Glucose,Whole Blood 206 mg/dL (75-99)
--- NOTE | 2017-01-01 12:51 | PN ---
DATE OF SERVICE: 01/01/2017 Ms. Becca Quiñones is an 86-year-old female who was seen, evaluated, examined on the fifth floor. Clinically patient is doing well. She is being treated for pneumonia and sepsis and associated urinary tract infection. She has issues associated with altered mental status and encephalopathy which has improved significantly. Hemodynamic status is stable. Last chest x-ray performed as well, continued to manifest left lower lobe pneumonia and small effusion. Her last set of vitals include blood pressure is 187/84, respiratory rate 16, pulse 81, temperature 98, saturation 97% on 3 liters oxygen. HEENT: Unremarkable. NECK: Supple. LUNGS: Good air entry, a few bronchial breath sounds at the bases. HEART: Regular rate and rhythm. S1 and S2 audible. ABDOMEN: Soft. No rebound or rigidity. EXTREMITIES: +1 peripheral pulses. NEUROLOGICAL EXAMINATION: Awake and alert, tolerating p.o. Labs reviewed. Medications reviewed. White cell count of 13,600, hemoglobin 13, hematocrit 40, platelet 167,000. PT, INR 32.7 and 3.4. Sodium 146, potassium is 2.9. BUN and creatinine is 100 and 3.54, which is coming down nicely. IMPRESSION: 1. Pneumonia left lower lobe related to Haemophilus. 2. Altered mental encephalopathy. 3. Acute renal failure. 4. Generalized weakness and medical debility. 5. Severe hypokalemia 6. Altered mental status as above. 7. Diabetes mellitus. Plan and recommendation is as above. Continue supportive care. Monitor sugars closely and adjust insulin accordingly. Elevated PT/INR. Will hold Coumadin today and we gave 40 mEq of KCl as well. Repeat PT and INR, and labs.
--- NOTE | 2017-01-01 14:18 | PN ---
Patient is seen for followup for acute kidney injury. Her renal function has been improving. Patient has been transferred out of the ICU. She is much more awake and is trying to eat. On examination, blood pressure is 187/84 earlier today previously it was 148/75, heart rate 81 per minute. The patient is afebrile. EXAMINATION OF THE HEART: S1 and S2. EXAMINATION OF THE LUNGS: Bilateral breath sounds are heard. ABDOMEN: Soft, nontender. Examination of lower extremities shows no evidence of edema. [employer] exam is grossly intact. Labs show sodium 146, potassium 2.9, chloride 90, BUN 100, serum creatinine 3.54. ASSESSMENT: 1. Acute kidney injury, acute tubular necrosis, currently significantly improved. Continue to encourage increased oral intake and avoid nephrotoxic agents. May continue with the fluids as well for now. 2. Sepsis with pneumonia with sputum culture growing Haemophilus influenza. 3. Encephalopathy, most likely related to above. 4. Hypokalemia, will replace. 5. Hyperkalemia previously, when renal function was worsening. Potassium is currently low and being replaced. PLAN: Replace potassium p.o. as patient does not have an IV access. Continue to encourage increased oral intake and repeat labs in a.m.
[2017-01-01 16:10] LABS: Glucose,Whole Blood 23 mg/dL (75-99)
[2017-01-01] MEDS ORDERED: DEXTROSE 50%-WATER 50 ML SYRINGE IVP STA (16:12)
[2017-01-01 16:14] LABS: Glucose,Whole Blood 328 mg/dL (75-99)
[2017-01-01 16:34] LABS: Glucose,Whole Blood 187 mg/dL (75-99)
[2017-01-01 17:29] LABS: Glucose,Whole Blood 97 mg/dL (75-99)
[2017-01-01] MEDS: POTASSIUM CHLORIDE 20 MEQ, LIDOCAINE 2% INJ 20 MG in SODIUM CHLORIDE 0.9% 100 ML IVPB SCH ×2 (18:28→22:14)
[2017-01-01 20:25] LABS: Glucose,Whole Blood 64 mg/dL (75-99)
[2017-01-01] MEDS: MELATONIN 5 MG TABLET PO SCH (22:14)
[2017-01-02 00:05] LABS: Glucose,Whole Blood 137 mg/dL (75-99)
[2017-01-02] MEDS: ACETAMINOPHEN TAB 325 MG TAB PO PRN ×2 (05:00→20:57)
[2017-01-02 06:51] LABS: Glucose,Whole Blood 257 mg/dL (75-99)
[2017-01-02] MEDS: IPRATROPIUM-ALBUTEROL 3 ML NEB INHALATION SCH ×4 (07:03→21:14)
[2017-01-02] MEDS: BUDESONIDE 0.5 MG/2 ML NEBU INHALATION SCH ×2 (07:03→21:14)
[2017-01-02 07:24] LABS: INR 2.8 (<1.1); Prothrombin Time 27.2 sec (9.0-12.0)
[2017-01-02 07:33] LABS: CHCM 32.2; HDW 2.41; HGB 13.5 gm/dL (11.4-16.0); Immature Gran Flag Marked; MCH 29.3 pg (25.0-35.0); MCHC 31.3 g/dL (31.0-37.0); MCV 93.5 fL (80.0-100.0); Mean Platelet Volume 9.1; RDW 13.6 % (11.5-15.5); WBC 10.1 k/uL (3.8-10.6); WBC (Perox) 10.27
--- NOTE | 2017-01-02 07:57 | XR ---
EXAMINATION TYPE: XR chest 1V DATE OF EXAM: 01/02/2017 7:20 AM HISTORY: Shortness of breath. COMPARISON: January 01, 2017 TECHNIQUE: Single view of the chest is submitted. FINDINGS: Demonstrated are scattered senescent parenchymal change. There is no evidence for focal infiltrate. The heart is stable. Hilar and mediastinal structures are within normal limits. Degenerative changes are seen of the dorsal spine. IMPRESSION: 1. Chronic changes without evidence for acute pulmonary disease.
[2017-01-02 08:01] LABS: Calcium 8.3 mg/dL (8.4-10.2); Magnesium 1.7 mg/dL (1.6-2.3); Phosphorous 2.4 mg/dL (2.5-4.5); Potassium 3.1 mmol/L (3.5-5.1); Total Bilirubin 1.7 mg/dL (0.2-1.3); Total Protein 6.2 g/dL (6.3-8.2)
[2017-01-02] MEDS: CALCIUM ACETATE 667 MG CAP PO SCH ×2 (08:42→12:13)
[2017-01-02] MEDS: INSULIN GLARGINE 100 UNIT/ML 10 ML VIAL SQ SCH (08:44)
[2017-01-02] MEDS: LINAGLIPTIN 5 MG TABLET PO SCH (08:44)
[2017-01-02] MEDS: amLODIPine 10 MG TAB PO SCH (08:44)
[2017-01-02] MEDS: CALCIUM CARBONATE 500 MG CHEWABLE PO SCH (08:45)
[2017-01-02] MEDS: ATENOLOL 50 MG TAB PO SCH (08:45)
[2017-01-02] MEDS: PANTOPRAZOLE 40 MG/10 ML VIAL IVP SCH ×2 (08:45→20:44)
[2017-01-02] MEDS: PRAVASTATIN SODIUM 20 MG TAB PO SCH (08:46)
[2017-01-02] MEDS: INSULIN LISPRO (humaLOG) 300 UNIT/3 ML VIAL SQ SCH ×4 (08:46→20:45)
[2017-01-02] MEDS: MONTELUKAST 10 MG TAB PO SCH (08:46)
--- NOTE | 2017-01-02 08:56 | PN ---
DATE OF SERVICE: 01/01/2017 Reason for follow-up is Hemophils influenza pneumonia. INTERVAL HISTORY: The patient is afebrile. She is actually more awake and alert today, breathing comfortably. Denies any chest pain. Occasional cough. No abdominal pain or diarrhea. On examination, blood pressure 130/60 with a pulse 104, temperature 97.3. She is 92% on 1 L nasal cannula. General description is an elderly female, lying in bed in no distress. RESPIRATORY SYSTEM: Unlabored breathing. Decreased breath sounds at the base. No wheeze. HEART: S1, S2 regular rate and rhythm. ABDOMEN: Soft, no tenderness. LABS: Hemoglobin 13, white count down to 13.6. Creatinine has improved to 3.54. DIAGNOSTIC IMPRESSION AND PLAN: Patient with Haemophilus pneumonia for which the patient will continue on Rocephin at this point. follow up on clinical condition to determine discharge antibiotics. Continue supportive care. MTDD
[2017-01-02 08:59] LABS: Add Differential Manual Differential
[2017-01-02 09:00] LABS: Nucleated Red Blood Cells 0 /100 WBC (0-0); Total Cells Counted 100
[2017-01-02 09:01] LABS: Polychromasia Present
--- NOTE | 2017-01-02 10:26 | PN ---
SUBJECTIVE: An 86-year-old white female transferred out of the ICU as her renal function has been improving. She has had poor diet, unable to eat much food at which time her sugars have been dropping low and she was found unresponsive with sugar 20, was given D50 boluses in the 60s and 70s now. Would cut back on her Levemir, took her off her regular insulin and extremely low doses for Accu-Chek only. Blood pressure 140s to 180s over 70s to 80s. CARDIOVASCULAR: S1, S2. LUNGS: Getting better, more clear. ABDOMEN: Soft. EXTREMITIES: No cyanosis, clubbing, edema. Sodium was 146, potassium 2.9, creatinine 3.54. ASSESSMENT: 1. Acute renal injury, acute tubular necrosis, improving. Increase oral agents. 2. She had sepsis with pneumonia and sputum with H. flu. 3. Encephalopathy secondary to above. 4. Hypokalemia, improved. Replaced potassium. Continue current treatment. Follow up in next 24 to 48 hours. Increase ambulation, increase oral intake. Monitor potassium and magnesium. Replace electrolytes as tolerated.
[2017-01-02] MEDS: D5W WITH KCL 20 MEQ/L 1,000 ML IV SCH ×2 (10:49→23:07)
[2017-01-02 11:01] LABS: Glucose,Whole Blood 390 mg/dL (75-99)
[2017-01-02 11:01] LABS: Glucose,Whole Blood 328 mg/dL (75-99)
[2017-01-02] MEDS: SODIUM CHLORIDE 0.9% 1,000 ML IV SCH (11:49)
[2017-01-02 12:44] LABS: Glucose,Whole Blood 321 mg/dL (75-99)
--- NOTE | 2017-01-02 15:20 | PN ---
DATE OF SERVICE: 01/02/2017 Ms. Becca Quiñones is an 86-year-old female who is seen, evaluated, and examined on fifth floor. Mental status has improved. She is tolerating p.o. well. She is being treated for pneumonia. Renal functions are progressively improving. Her last set of vitals include blood pressure is 195/83, respirations 16, pulse 95, temperature 98, saturation 92% on room air. HEENT: Unremarkable. NECK: Supple. LUNGS: Good air entry bilaterally. HEART: Regular rate and rhythm. Abdomen is soft. NEUROLOGICAL EXAMINATION: Otherwise, awake and alert. Last chest x-ray performed earlier today reviewed and compared with the prior x-ray, chronic changes are seen. Hemodynamic status is stable. Her other laboratory data reviewed. White cell count 10,000, the rest of CBC is normal. PT, INR is 27.2 and 2.8. Sodium is 150, potassium 3.1. BUN and creatinine 77 and 2.42. Her glucose is 305. IMPRESSION: 1. Mild hypernatremia. 2. Altered mental status with encephalopathy. 3. Coagulopathy, Coumadin is on hold. Will give half a dose of Coumadin. 4. Severe hypokalemia, potassium is improved. Renal services are improving as well.
[2017-01-02] MEDS ORDERED: POTASSIUM CHLORIDE ORAL LIQUID 40 MEQ/30 ML CUP PO ONE (16:23)
--- NOTE | 2017-01-02 17:00 | PN ---
Patient is seen for followup for acute kidney injury which was mainly prerenal. Patient is prerenal with a component of ATN. Patient is currently resting comfortably. She is maintained on IV fluids. Her oral intake has been on the lower side. Renal function has improved significantly. On examination, blood pressure 152/79, heart rate 76 per minute. She is afebrile. Examination of the heart, S1 and S2. Examination of the lungs, bilateral breath sounds are heard. Abdomen is soft, nontender. Examination of lower extremities shows no evidence of edema. FLATWORK WASHER exam is grossly intact. Labs show sodium 150, potassium 3.1, BUN 77, serum creatinine 2.42. ASSESSMENT: 1. Acute kidney injury, acute tubular necrosis, currently significantly improved. 2. Hypokalemia, being replaced. 3. Hypernatremia. Will change IV fluids to D5W and continue to encourage increased oral intake. 4. Sepsis with hemophilias influenza pneumonia. PLAN: Replace potassium, encourage increased oral intake, change IV fluids to D5W. Repeat labs in the a.m. Continue to avoid nephrotoxic agents. Repeat phosphorus is at 2.4. I will DC the PhosLo also.
[2017-01-02 17:21] LABS: Glucose,Whole Blood 157 mg/dL (75-99)
[2017-01-02] MEDS ORDERED: WARFARIN 2.5 MG TAB PO SCH (18:00)
[2017-01-02] MEDS: POTASSIUM CHLORIDE 20 MEQ, LIDOCAINE 2% INJ 20 MG in SODIUM CHLORIDE 0.9% 100 ML IVPB SCH ×2 (18:14→20:42)
[2017-01-02 20:26] LABS: Glucose,Whole Blood 196 mg/dL (75-99)
[2017-01-02] MEDS: MELATONIN 5 MG TABLET PO SCH (20:44)
[2017-01-03 02:22] LABS: Glucose,Whole Blood 157 mg/dL (75-99)
[2017-01-03 07:08] LABS: INR 2.7 (<1.1); Prothrombin Time 25.7 sec (9.0-12.0)
[2017-01-03 07:13] LABS: Basophils # (A) 0.1 k/uL (0-0.2); Basophils % (A) 1 %; CH 29.3; Eosinophils % (A) 0 %; HCT 43.9 % (34.0-46.0); HDW 2.45; HGB 13.7 gm/dL (11.4-16.0); Hypochromasia Slight; Luc # (Auto) 0.13; Luc % (Auto) 1; Lymphocytes # (A) 0.7 k/uL (1.0-4.8); Lymphocytes % (A) 6 %; MCH 29.4 pg (25.0-35.0); MCHC 31.1 g/dL (31.0-37.0); MCV 94.6 fL (80.0-100.0); Mean Platelet Volume 7.8; Monocytes # (A) 0.6 k/uL (0-1.0); Monocytes % (A) 5 %; Neutrophils # (A) 10.3 k/uL (1.3-7.7); Neutrophils % (A) 87 %; RBC 4.64 m/uL (3.80-5.40); RDW 13.4 % (11.5-15.5); WBC 11.8 k/uL (3.8-10.6); WBC (Perox) 12.47
[2017-01-03 07:21] LABS: Glucose,Whole Blood 222 mg/dL (75-99)
[2017-01-03 07:29] LABS: Calcium 8.4 mg/dL (8.4-10.2); Magnesium 1.3 mg/dL (1.6-2.3); Phosphorous 2.3 mg/dL (2.5-4.5); Potassium 3.3 mmol/L (3.5-5.1); Total Bilirubin 1.8 mg/dL (0.2-1.3)
[2017-01-03] MEDS: IPRATROPIUM-ALBUTEROL 3 ML NEB INHALATION SCH ×4 (07:36→19:31)
[2017-01-03] MEDS: BUDESONIDE 0.5 MG/2 ML NEBU INHALATION SCH ×2 (07:36→19:31)
[2017-01-03] MEDS: ATENOLOL 50 MG TAB PO SCH (08:23)
[2017-01-03] MEDS: amLODIPine 10 MG TAB PO SCH (08:23)
[2017-01-03] MEDS: PRAVASTATIN SODIUM 20 MG TAB PO SCH (08:23)
[2017-01-03] MEDS: CALCIUM CARBONATE 500 MG CHEWABLE PO SCH (08:23)
[2017-01-03] MEDS: LINAGLIPTIN 5 MG TABLET PO SCH (08:23)
[2017-01-03] MEDS: MONTELUKAST 10 MG TAB PO SCH (08:23)
[2017-01-03] MEDS: INSULIN LISPRO (humaLOG) 300 UNIT/3 ML VIAL SQ SCH ×4 (08:23→20:42)
[2017-01-03] MEDS: PANTOPRAZOLE 40 MG/10 ML VIAL IVP SCH ×2 (08:24→20:42)
[2017-01-03] MEDS: INSULIN GLARGINE 100 UNIT/ML 10 ML VIAL SQ SCH (08:32)
--- NOTE | 2017-01-03 10:41 | PN ---
SUBJECTIVE: This is an 86-year-old white female who was admitted with ATN secondary to significant dehydration. Her renal function is greatly improved after she has been rehydrated. Her sodium is 150, potassium 3.1, BUN 77, creatinine 2.42. ASSESSMENT: 1. Acute renal injury, status post acute tubular necrosis. 2. Hypokalemia. 3. Hypernatremia. 4. Sepsis. 5. Haemophilus influenza pneumonia. Increase intake. Continue with IV fluids. Check labs in the morning. Repeat phosphorus. Continue current treatment. PROGNOSIS: Guarded but the patient is improving.
--- NOTE | 2017-01-03 12:12 | P.PN ---
Subjective 86-year-old female being seen on rounds of the attending this morning. Is more awake and alert compared to prior. Patients being followed by nephrology for acute kidney injury mainly prerenal. The creatinine is improving. This morning creatinine is 1.6. The day before was 2.4 did note the magnesium was down to 1.3 was 1.7 yesterday potassium is 3.3 was 3.1 yesterday the discharge plan is in progress. Patients being evaluated for [facility] [place] nursing reports the patient continues to have poor caloric intake only 825% of her diet this morning needs much encouragement Objective - Vital Signs Vital signs: Vital Signs Temp 99.1 F 01/03/17 07:00 Pulse 80 01/03/17 11:33 Resp 16 01/03/17 08:00 BP 154/82 01/03/17 07:00 Pulse Ox 95 01/03/17 07:39 Intake & Output 01/02/17 01/03/17 01/03/17 18:59 06:59 18:59 Intake Total 600 925 Output Total 1100 800 Balance -500 125 Weight 61 kg 51.5 kg Intake: IV 600 825 D5w with KCl 20 Meq/l 1, 300 825 000 ml @ 75 mls/hr IV . [id number] CLAUDIA Rx#:[id number] Sodium Chloride 0.9% 1, 300 000 ml @ 70 mls/hr IV . [id number] CLAUDIA Rx#:[id number] Intake, IV Titration 100 Amount Potassium Chloride 20 meq 100 Lidocaine 2% Inj 20 mg In Sodium Chloride 0.9% 100 ml @ 55.5 mls/hr IVPB Q2HR CLAUDIA Rx#:[id number] Output: Urine 1100 800 Other: Voiding Method Indwelling Catheter Indwelling Catheter Indwelling Catheter # Voids 0 - Exam Physical exam 86-year-old female resting in bed is oriented to person and place hard of hearing will follow simple commands Lungs posterior diminished at the bases no audible wheezing on room air sats are 95% Heart S1-S2 audible Abdomen soft indwelling Jauregui catheter in place no document stooling no nausea vomiting poor oral and caloric intake Extremities no edema - Labs CBC & Chem 7: 01/03/17 06:32 01/03/17 06:32 Labs: Abnormal Lab Results - Last 24 Hours (Table) 01/02/17 01/02/17 01/02/17 Range/Units 12:35 17:21 20:20 WBC (3.8-10.6) k/uL PT (9.0-12.0) sec Sodium (137-145) mmol/L Potassium (3.5-5.1) mmol/L Carbon Dioxide (22-30) mmol/L BUN (7-17) mg/dL Creatinine (0.52-1.04) mg/dL Glucose (74-99) mg/dL POC Glucose (mg/dL) 321 H 157 H 196 H (75-99) mg/dL Phosphorus (2.5-4.5) mg/dL Magnesium (1.6-2.3) mg/dL Total Bilirubin (0.2-1.3) mg/dL Total Protein (6.3-8.2) g/dL Albumin (3.5-5.0) g/dL 01/03/17 01/03/17 01/03/17 Range/Units 02:18 06:32 06:32 WBC 11.8 H (3.8-10.6) k/uL PT (9.0-12.0) sec Sodium 149 H (137-145) mmol/L Potassium 3.3 L (3.5-5.1) mmol/L Carbon Dioxide 32 H (22-30) mmol/L BUN 49 H (7-17) mg/dL Creatinine 1.66 H (0.52-1.04) mg/dL Glucose 227 H (74-99) mg/dL POC Glucose (mg/dL) 157 H (75-99) mg/dL Phosphorus 2.3 L (2.5-4.5) mg/dL Magnesium 1.3 L (1.6-2.3) mg/dL Total Bilirubin 1.8 H (0.2-1.3) mg/dL Total Protein 6.0 L (6.3-8.2) g/dL Albumin 3.3 L (3.5-5.0) g/dL 01/03/17 01/03/17 Range/Units 06:32 07:00 WBC (3.8-10.6) k/uL PT 25.7 H (9.0-12.0) sec Sodium (137-145) mmol/L Potassium (3.5-5.1) mmol/L Carbon Dioxide (22-30) mmol/L BUN (7-17) mg/dL Creatinine (0.52-1.04) mg/dL Glucose (74-99) mg/dL POC Glucose (mg/dL) 222 H (75-99) mg/dL Phosphorus (2.5-4.5) mg/dL Magnesium (1.6-2.3) mg/dL Total Bilirubin (0.2-1.3) mg/dL Total Protein (6.3-8.2) g/dL Albumin (3.5-5.0) g/dL Assessment and Plan Plan: Impression Present on admission shortness of breath suspect multifactorial with acute hypoxic respiratory failure due to sepsis suspect due to community-acquired left lower lobe pneumonia with tracheal bronchitis with a positive sputum of Haemophilus influenza resolving Present on admission Acute on chronic respiratory failure with hypoxic with acute respiratory distress use of accessory muscles to breathe with audible wheezing Chronic persist atrial fibrillation on anticoagulation History of asthma Elevated d-dimer with a CAT scan of the chest negative for pulmonary emboli Hyperlipidemia Present on admission coagulopathy Coumadin induced INR 4.9 Coumadin on hold Acute renal failure suspect due to poor oral intake hypovolumic Severe electrolyte abnormality Hyperkalemia and hypomagnesemia persist Mild aortic stenosis per echo 2015 Acute on chronic complete vaginal prolapse Hyperglycemic episodes suspect steroid-induced Type 2 diabetes insulin requiring Episodes of severe electrolyte hypo-magnesium and hypokalemic Mild protein calorie malnutrition suspect due to poor caloric intake underweight BMI 20 Mild hypernatremia Plan Patient would benefit from a PEG tube placed due to poor caloric intake Nutritional supplements aspiration precautions Check a pro time and INR in the morning Continue with a no CODE STATUS Hold all nephrotoxin meds IV fluid at 75 an hour monitor response Continue with pulmonology's recommendations Per cardiology patient is felt to be stable from that perspective and that the patient could be discharged within the next 24 hours DVT and GI prophylaxi Monitor blood sugars restart oral hypoglycemic meds encouraging oral intake Hold the Coumadin today and check an INR in the morning Titrate the O2 down to keep a sat greater than 90 The above dictated assessment and findings were discussed with Dr. Sibley Impression and the plan of care have been dictated as directed. Chloe Reddy nurse practitioner acting as a scribe for Dr. Sibley
[2017-01-03 12:13] LABS: Glucose,Whole Blood 203 mg/dL (75-99)
--- NOTE | 2017-01-03 12:45 | PN ---
DATE OF SERVICE: 01/02/2017 Reason for follow-up: Haemophilus influenza pneumonia. INTERVAL HISTORY: The patient is afebrile. She has been breathing slightly comfortably on room air. No nausea or vomiting has been noticed. No orthopnea, diarrhea. Denies any chest pain. Occasional cough. On examination, blood pressure 152/79 with a pulse of 88, temperature 97.9. She is 98% on room air. General description is an elderly female, lying in bed in no distress. RESPIRATORY SYSTEM: Unlabored breathing. Some coarse breath sounds at the base. No wheeze. HEART: S1, S2 regular rate and rhythm. ABDOMEN: Soft. No tenderness. Labs: Hemoglobin is 13.5, white count normalized to 10.1, BUN of 77. Creatinine 2.42. DIAGNOSTIC IMPRESSION AND PLAN: Patient with Haemophilus influenzae pneumonia to which the patient responded to Rocephin that will be continued to finish therapy with ceftin her white count has normalized. Continue supportive care. MTDD
[2017-01-03] MEDS: D5W WITH KCL 20 MEQ/L 1,000 ML IV SCH (13:04)
[2017-01-03] MEDS: MAGNESIUM SULFATE-D5W PMX 1 GM in DEXTROSE/WATER 1 100ML.BAG IVPB SCH ×4 (13:36→19:30)
[2017-01-03] MEDS: POTASSIUM CHLORIDE 20 MEQ, LIDOCAINE 2% INJ 20 MG in SODIUM CHLORIDE 0.9% 100 ML IVPB SCH ×2 (15:17→19:58)
[2017-01-03 15:34] VITALS: BMI 20.7
--- NOTE | 2017-01-03 16:38 | PN ---
Patient is seen for followup for acute kidney injury. She is currently lying in bed, not in any acute distress; however, patient is quite weak. She requires to be fed and she is mainly eating soft diet. She remains on IV fluids. On examination, blood pressure is 135/64, heart rate 74 per minute. She is afebrile. HEART: S1 and S2. LUNGS: Bilateral breath sounds are heard. Decreased breath sounds in bases. Abdomen is soft, nontender. Lower extremities show no evidence of edema. CRIMINAL PSYCHOLOGIST is grossly intact. Labs show hemoglobin 13.7. Serum creatinine 1.6, sodium 140, potassium 3.3. ASSESSMENT: 1. Acute kidney injury, acute tubular necrosis, currently significantly improved. Continue with IV fluids and avoid hypotension. 2. Hypernatremia, maintained on D5W. 3. Sepsis with pneumonia with sputum culture growing Haemophilus influenza. 4. Hypocalcemia, currently maintained on TUMS. Will check a vitamin D level. 5. Generalized debility. Decreased oral intake. Continue to encourage increased oral intake. Family is advised at bedside. 6. Dyslipidemia. 7. Hypokalemia, being replaced. PLAN: Check 25 hydroxy vitamin D level, continue with D5W and replace potassium.
[2017-01-03 17:19] LABS: Glucose,Whole Blood 178 mg/dL (75-99)
[2017-01-03 20:21] LABS: Glucose,Whole Blood 169 mg/dL (75-99)
--- NOTE | 2017-01-03 20:35 | PN ---
86-year-old female with acute hypoxic respiratory failure. The patient has Haemophilus influenza pneumonia, respiratory failure. Also has problems with altered mental status and encephalopathy and from respiratory standpoint, doing very well, awake and alert, breathing comfortably. No obvious distress present. Patient is tolerating p.o. very well. The renal function progressively improving. Last set of vitals includes ( ). Labs are reviewed. PT and INR in therapeutic range, 25.7, 2.7. Current dose of Coumadin, glucose 227, BUN and creatinine 49 and 1.66. Impression and plan as dictated above: 1. Sepsis with Haemophilus pneumonia. 2. Acute renal failure. 3. Generalized weakness, medical debility. 4. Altered mental significantly improved. PLAN AND RECOMMENDATIONS: As above. Continue supportive care. Follow clinical course closely.
[2017-01-03] MEDS: MELATONIN 5 MG TABLET PO SCH (20:42)
--- NOTE | 2017-01-03 21:32 | PN ---
DATE OF SERVICE: 01/03/2017 REASON FOR FOLLOWUP: Haemophilus influenzae pneumonia. INTERVAL HISTORY: The patient is afebrile. She seems to be more awake and alert , mentation improved. No nausea or vomiting has been noticed or any diarrhea. On examination, blood pressure 154/82 with a pulse of 83, temperature 99.1. She is 94% on room air. General description is an elderly female lying in bed in no distress. RESPIRATORY SYSTEM: Unlabored breathing. Some decreased breath sounds at the bases. No wheeze. HEART: S1, S2. Regular rate and rhythm. ABDOMEN: Soft. No tenderness. LABS: Hemoglobin is 13.7, white count 11.8 with a BUN of 49, creatinine 1.66. DIAGNOSTIC IMPRESSION AND PLAN: Patient with Haemophilus influenzae pneumonia. She received about more than a week of IV antibiotic therapy. She will be able to finish therapy with p.o. Ceftin 250 twice a day for about a week. Continue supportive care. MTDD
[2017-01-04 02:08] LABS: Glucose,Whole Blood 239 mg/dL (75-99)
[2017-01-04] MEDS: D5W WITH KCL 20 MEQ/L 1,000 ML IV SCH ×2 (06:24→16:14)
[2017-01-04 07:34] LABS: Glucose,Whole Blood 222 mg/dL (75-99)
[2017-01-04] MEDS: BUDESONIDE 0.5 MG/2 ML NEBU INHALATION SCH ×2 (07:39→19:25)
[2017-01-04] MEDS: IPRATROPIUM-ALBUTEROL 3 ML NEB INHALATION SCH ×4 (07:39→19:25)
[2017-01-04] MEDS: PANTOPRAZOLE 40 MG/10 ML VIAL IVP SCH ×2 (07:53→19:53)
[2017-01-04] MEDS: CALCIUM CARBONATE 500 MG CHEWABLE PO SCH (07:55)
[2017-01-04] MEDS: LINAGLIPTIN 5 MG TABLET PO SCH (07:55)
[2017-01-04] MEDS: MONTELUKAST 10 MG TAB PO SCH (07:55)
[2017-01-04] MEDS: PRAVASTATIN SODIUM 20 MG TAB PO SCH (07:56)
[2017-01-04] MEDS: INSULIN LISPRO (humaLOG) 300 UNIT/3 ML VIAL SQ SCH ×4 (08:10→19:53)
[2017-01-04] MEDS: ATENOLOL 50 MG TAB PO SCH (08:13)
[2017-01-04] MEDS: amLODIPine 10 MG TAB PO SCH (08:13)
[2017-01-04] MEDS: INSULIN GLARGINE 100 UNIT/ML 10 ML VIAL SQ SCH (09:14)
[2017-01-04 09:27] LABS: Basophils # (A) 0.1 k/uL (0-0.2); Basophils % (A) 0 %; CH 29.9; CHCM 32.3; Eosinophils # (A) 0.1 k/uL (0-0.7); Eosinophils % (A) 1 %; HCT 40.8 % (34.0-46.0); HDW 2.54; HGB 12.8 gm/dL (11.4-16.0); Luc # (Auto) 0.09; Luc % (Auto) 1; Lymphocytes # (A) 0.8 k/uL (1.0-4.8); Lymphocytes % (A) 4 %; MCH 29.1 pg (25.0-35.0); MCHC 31.3 g/dL (31.0-37.0); MCV 92.9 fL (80.0-100.0); Monocytes # (A) 0.6 k/uL (0-1.0); Monocytes % (A) 3 %; Neutrophils # (A) 17.1 k/uL (1.3-7.7); Neutrophils % (A) 91 %; RBC 4.39 m/uL (3.80-5.40); RDW 13.5 % (11.5-15.5); WBC 18.8 k/uL (3.8-10.6); WBC (Perox) 19.94
[2017-01-04 09:31] LABS: INR 1.6 (<1.1)
[2017-01-04 09:32] LABS: Prothrombin Time 15.3 sec (9.0-12.0)
[2017-01-04 09:41] LABS: Calcium 7.9 mg/dL (8.4-10.2); Potassium 3.6 mmol/L (3.5-5.1); Total Bilirubin 1.4 mg/dL (0.2-1.3); Total Protein 5.3 g/dL (6.3-8.2)
[2017-01-04 11:32] LABS: Glucose,Whole Blood 266 mg/dL (75-99)
--- NOTE | 2017-01-04 16:14 | P.PN ---
Subjective 86-year-old female being seen this morning on rounds. Family at the bedside. The daughter indicates she is interested in hospice care. Patient is more lethargic this morning continues to refuse to eat. manager trade marketingmanager media worker meeting with the patient and the patient's family to discuss discharge planning Objective - Vital Signs Vital signs: Vital Signs Temp 97.7 F 01/04/17 15:00 Pulse 67 01/04/17 15:58 Resp 18 01/04/17 15:00 BP 119/58 01/04/17 15:00 Pulse Ox 100 01/04/17 15:38 Intake & Output 01/03/17 01/04/17 01/04/17 18:59 06:59 18:59 Intake Total 689 208 8265 Output Total 700 400 400 Balance -175 565 950 Weight 51.5 kg 51.5 kg 51.5 kg Intake: IV 525 225 700 D5w with KCl 20 Meq/l 1, 525 225 700 000 ml @ 75 mls/hr IV . [id number] CLAUDIA Rx#:[id number] Intake, IV Titration 200 50 Amount Magnesium Sulfate-D5w Pmx 100 1 gm In Dextrose/Water 1 100ml.bag @ 100 mls/hr IVPB Q1H CLAUDIA Rx#: [id number] Potassium Chloride 20 meq 100 Lidocaine 2% Inj 20 mg In Sodium Chloride 0.9% 100 ml @ 55.5 mls/hr IVPB Q2HR CLAUDIA Rx#:[id number] cefTRIAXone 1,000 mg In 50 Sodium Chloride 0.9% 50 ml @ 100 mls/hr IVPB Q24HR CLAUDIA Rx#:[id number] Oral 540 600 Output: Urine 700 400 400 Other: Voiding Method Indwelling Catheter Indwelling Catheter Indwelling Catheter # Voids 0 - Exam Physical exam 86-year-old female resting in bed is oriented to person and place hard of hearing will follow simple commands increasingly more lethargic this morning Lungs posterior diminished at the bases no audible wheezing on room air sats are 95% Heart S1-S2 audible Abdomen soft indwelling Jauregui catheter in place no document stooling no nausea vomiting poor oral and caloric intake continues to refuse to eat Extremities no edema - Labs CBC & Chem 7: 01/04/17 08:52 01/04/17 08:52 Labs: Abnormal Lab Results - Last 24 Hours (Table) 01/03/17 01/03/17 01/03/17 Range/Units 06:32 17:15 20:19 WBC (3.8-10.6) k/uL Plt Count (150-450) k/uL Neutrophils # (1.3-7.7) k/uL Lymphocytes # (1.0-4.8) k/uL PT (9.0-12.0) sec BUN (7-17) mg/dL Creatinine (0.52-1.04) mg/dL Glucose (74-99) mg/dL POC Glucose (mg/dL) 178 H 169 H (75-99) mg/dL Calcium (8.4-10.2) mg/dL Total Bilirubin (0.2-1.3) mg/dL Total Protein (6.3-8.2) g/dL Albumin (3.5-5.0) g/dL Vitamin D 25-Hydroxy 20.8 L (30.0-100.0) ng/mL 01/04/17 01/04/17 01/04/17 Range/Units 02:04 07:08 08:52 WBC (3.8-10.6) k/uL Plt Count (150-450) k/uL Neutrophils # (1.3-7.7) k/uL Lymphocytes # (1.0-4.8) k/uL PT 15.3 H (9.0-12.0) sec BUN (7-17) mg/dL Creatinine (0.52-1.04) mg/dL Glucose (74-99) mg/dL POC Glucose (mg/dL) 239 H 222 H (75-99) mg/dL Calcium (8.4-10.2) mg/dL Total Bilirubin (0.2-1.3) mg/dL Total Protein (6.3-8.2) g/dL Albumin (3.5-5.0) g/dL Vitamin D 25-Hydroxy (30.0-100.0) ng/mL 01/04/17 01/04/17 01/04/17 Range/Units 08:52 08:52 11:26 WBC 18.8 H (3.8-10.6) k/uL Plt Count 136 L (150-450) k/uL Neutrophils # 17.1 H (1.3-7.7) k/uL Lymphocytes # 0.8 L (1.0-4.8) k/uL PT (9.0-12.0) sec BUN 34 H (7-17) mg/dL Creatinine 1.19 H (0.52-1.04) mg/dL Glucose 254 H (74-99) mg/dL POC Glucose (mg/dL) 266 H (75-99) mg/dL Calcium 7.9 L (8.4-10.2) mg/dL Total Bilirubin 1.4 H (0.2-1.3) mg/dL Total Protein 5.3 L (6.3-8.2) g/dL Albumin 2.9 L (3.5-5.0) g/dL Vitamin D 25-Hydroxy (30.0-100.0) ng/mL Assessment and Plan Plan: Impression Present on admission shortness of breath suspect multifactorial with acute hypoxic respiratory failure due to sepsis suspect due to community-acquired left lower lobe pneumonia with tracheal bronchitis with a positive sputum of Haemophilus influenza resolving Present on admission Acute on chronic respiratory failure with hypoxic with acute respiratory distress use of accessory muscles to breathe with audible wheezing Chronic persist atrial fibrillation on anticoagulation History of asthma Elevated d-dimer with a CAT scan of the chest negative for pulmonary emboli Hyperlipidemia Present on admission coagulopathy Coumadin induced INR 4.9 Coumadin on hold Acute renal failure suspect due to poor oral intake hypovolumic Severe electrolyte abnormality Hyperkalemia and hypomagnesemia persist Mild aortic stenosis per echo 2016 Acute on chronic complete vaginal prolapse Hyperglycemic episodes suspect steroid-induced Type 2 diabetes insulin requiring Episodes of severe electrolyte hypo-magnesium and hypokalemic Mild protein calorie malnutrition suspect due to poor caloric intake underweight BMI 20 Mild hypernatremia Failure to thrive Physically debilitated Plan Patient would benefit from a PEG tube placed due to poor caloric intake family and patient refused PEG tube Nutritional supplements patient is refusing aspiration precautions Check a pro time and INR in the morning Continue with a no CODE STATUS Hold all nephrotoxin meds IV fluid at 75 an hour monitor response Continue with pulmonology's recommendations Per cardiology patient is felt to be stable from that perspective and that the patient could be discharged within the next 24 hours DVT and GI prophylaxi Monitor blood sugars restart oral hypoglycemic meds encouraging oral intake Hold the Coumadin today and check an INR in the morning Titrate the O2 down to keep a sat greater than 90 Prepped for probable discharge in the next 24 hours family is requesting hospice care criminal justice social worker to pursue The above dictated assessment and findings were discussed with Dr. Sibley Impression and the plan of care have been dictated as directed. Chloe Reddy nurse practitioner acting as a scribe for Dr. Sibley
[2017-01-04 17:25] LABS: Glucose,Whole Blood 184 mg/dL (75-99)
--- NOTE | 2017-01-04 18:19 | PN ---
DATE OF SERVICE: 01/04/2017 Reason for Follow-up: Haemophilus influenza pneumonia. INTERVAL HISTORY: The patient is afebrile. Her oral intake remains to be poor. No nausea or vomiting. No diarrhea. On examination, blood pressure is 116/75 with a pulse of 86, temperature 98. She is 91% on room air. General description is an elderly female, lying in bed in no distress. RESPIRATORY SYSTEM: Unlabored breathing. Some decreased breath sounds at the base. No wheeze. HEART: S1, S2. Regular rate and rhythm. ABDOMEN: Soft, no tenderness. LABS: Hemoglobin is 12.9, white count is up to 18.8 with BUN of 34, creatinine 1.19. DIAGNOSTIC IMPRESSION AND PLAN: Patient with Haemophilus influenza pneumonia adequately treated. She did have slight jump in the white count. No diarrhea has been noticed. No fever. Continue to monitor closely as an outpatient. She will be able to finish therapy with p.o. Ceftin. Continue with supportive care. Family present at bedside. Their questions and concerns were answered. DEJAN
[2017-01-04 19:54] LABS: Glucose,Whole Blood 154 mg/dL (75-99)
[2017-01-04] MEDS: MELATONIN 5 MG TABLET PO SCH (19:54)
--- NOTE | 2017-01-04 20:11 | PN ---
Patient is seen for followup for acute kidney injury and hypernatremia. She is currently resting comfortably. She is maintained on IV fluids in the form of D5W with potassium. She has had hypokalemia and is currently quite debilitated with weakness. On examination, blood pressure is 119/58, heart rate 82 per minute. She is afebrile. EXAMINATION OF THE HEART: S1 and S2. EXAMINATION OF THE LUNGS: Decreased breath sounds in bases. ABDOMEN: Soft, nontender. Examination of the lower extremities shows no significant edema. Labs show sodium 141, potassium 3.6, BUN 34, serum creatinine 1.19. Hemoglobin 12.8 g/dL. ASSESSMENT: 1. Acute kidney injury, acute tubular necrosis, currently resolved, with significant improvement in renal function and creatinine going down from 6.2 to 1.19 now. 2. Hypernatremia, improved with D5W. 3. Hypokalemia, status post replacement. 4. Generalized debility. 5. Haemophilus influenzae pneumonia, maintained on antibiotics. PLAN: Continue to encourage oral intake. May continue the IV fluids for now. Repeat labs in a.m.
[2017-01-05] MEDS: D5W WITH KCL 20 MEQ/L 1,000 ML IV SCH (03:44)
[2017-01-05] MEDS: BUDESONIDE 0.5 MG/2 ML NEBU INHALATION SCH (07:46)
[2017-01-05] MEDS: IPRATROPIUM-ALBUTEROL 3 ML NEB INHALATION SCH ×2 (07:47→12:16)
[2017-01-05 07:59] LABS: Glucose,Whole Blood 185 mg/dL (75-99)
[2017-01-05] MEDS: ATENOLOL 50 MG TAB PO SCH (08:11)
[2017-01-05] MEDS: amLODIPine 10 MG TAB PO SCH (08:11)
[2017-01-05] MEDS: LINAGLIPTIN 5 MG TABLET PO SCH (08:11)
[2017-01-05] MEDS: INSULIN LISPRO (humaLOG) 300 UNIT/3 ML VIAL SQ SCH (08:11)
[2017-01-05] MEDS: CALCIUM CARBONATE 500 MG CHEWABLE PO SCH (08:11)
[2017-01-05] MEDS: MONTELUKAST 10 MG TAB PO SCH (08:12)
[2017-01-05] MEDS: PRAVASTATIN SODIUM 20 MG TAB PO SCH (08:12)
[2017-01-05] MEDS: INSULIN GLARGINE 100 UNIT/ML 10 ML VIAL SQ SCH (08:19)
[2017-01-05 08:34] VITALS: BP 151/66; RESP 18; TEMP 98.4
[2017-01-05] MEDS ORDERED: PANTOPRAZOLE 40 MG TABLET PO SCH (09:00)
[2017-01-05 09:51] LABS: INR 1.3 (<1.1)
[2017-01-05 11:53] LABS: Glucose,Whole Blood 195 mg/dL (75-99)
--- NOTE | 2017-01-05 12:01 | P.DS ---
Providers Date of admission: 12/25/16 16:35 Expected date of discharge: 01/05/17 Attending physician: To Ashton Consults: 12/26/16 10:27 Consult Physician Routine Consulting Provider: Michael Snow Consult Reason/Comments: chf Do you want consulting provider notified?: Yes 12/27/16 05:46 Consult Physician Routine Consulting Provider: Zenon Parr Consult Reason/Comments: PNEUMONIA Do you want consulting provider notified?: Yes, Notify in am 12/29/16 08:00 Consult Physician Urgent Consulting Provider: Corazon Lira Consult Reason/Comments: uterine prolapse/unable to urinate due to prolapse Do you want consulting provider notified?: Yes 12/29/16 13:44 Consult Physician Urgent Consulting Provider: Heriberto Alvarado Consult Reason/Comments: Acute renal failure elevated creatinine Do you want consulting provider notified?: Yes 12/29/16 13:56 Consult Physician Urgent Consulting Provider: Cassie Quezada Consult Reason/Comments: IV antibiotic recommendations Do you want consulting provider notified?: Yes 12/29/16 20:41 Consult Physician Stat Consulting Provider: Alex Ramsey Consult Reason/Comments: ateam transfer ot ICU Do you want consulting provider notified?: Yes [facility] Course: 86-year-old female was admitted on December 25 to the emergency room with a chief complaint of shortness of breath. Patient had been to [facility] breast outpatient clinic and evaluated for sore throat strep swab was obtained was negative patient was discharged from the [facility] to home. The following morning the patient woke up shortness of breath was more symptomatic was having a productive cough felt weak all over daughter became concerned brought patient to the emergency room the temp in the emergency room leukocytosis white count up to 16 temp was 102.5 tachycardia heart rate in the 120s sputum was positive for H influenza chest x-ray suggest left lower lobe pneumonia community- acquired tracheal bronchitis. Patient was started on IV antibiotics for sepsis. Patient was treated for acute respiratory failure with hypoxemia suspect due to sepsis due to left lower lobe community acquired pneumonia with H influenza positive nasal swab patient initially was stabilized to a F floor decompensated needed to go to the intensive care unit for close monitoring. Patient was followed by multiple consulting physicians throughout the hospitalization. Patient did develop acute renal failure creatinine was up to 5.7 on December 29 then went up to 6.2. All nephrotoxin meds were stopped patient was treated by nephrology service patient's acute kidney injury with acute tubular necrosis had resolved Patient was seen by cardiology service patient has chronic persistent atrial fibrillation had been on anticoagulation Coumadin. Patient did have coagulopathy the INR was elevated which the Coumadin was held. Cardiology indicated there was no further cardiac workup at this time the patient did have persistent chronic atrial fibrillation with a variable ventricular response Additionally patient was seen by infectious disease Dr. Quezada patient was placed on the appropriate antibiotics and treated for sepsis with H influenza pneumonia with a positive nasal swab for influenza Additionally patient was seen by MAMMOGRAPHY TECHNOLOGIST patient has acute on chronic complete vaginal prolapse in which MAMMOGRAPHY TECHNOLOGIST indicated they would be no surgical recommendations at this time continue to treat conservatively with the use of a pessary. Over the course of the hospitalization patient continued to decline was refusing to eat had poor oral intake family and patient were offered PEG tube for nutritional support patient and family opted not to have a PEG tube placed and were refusing. Additionally patient's clinical condition continued to decline patient became more lethargic and anticipate further decline after IV fluid as stopped on the day of discharge patient was difficult to arouse did not open eyes to verbal stimuli. Patient continued to decline over the last week was not able to sit on the edge of the bed with the assist of 2 significantly deconditioned with acute encephalopathy. patient was able to be transferred after stabilized from all consulting physicians to a stepdown unit patient continued to decline and family indicated that patient per advance directives did not want any aggressive treatment and they were opting for hospice care disease case manager did discuss options family requested hospice house within the community. Impression discharge diagnosis Present on admission acute hypoxic respiratory failure with pulse ox sat 91% on 4 L with the use of accessory muscles to breathe respiratory rate 36 shortness of breath febrile leukocytosis tachycardic meets SIRS criteria for sepsis suspect due to H influenza pneumonia community-acquired left lower lobe with acute tracheobronchitis Present on admission shortness of breath suspect multifactorial with acute hypoxic respiratory failure due to sepsis suspect due to community-acquired left lower lobe pneumonia with tracheal bronchitis with a positive sputum of Haemophilus influenza resolving Present on admission Acute on chronic respiratory failure with hypoxic with acute respiratory distress use of accessory muscles to breathe with audible wheezing Chronic persist atrial fibrillation on anticoagulation History of asthma Elevated d-dimer with a CAT scan of the chest negative for pulmonary emboli Hyperlipidemia Present on admission coagulopathy Coumadin induced INR 4.9 Coumadin on hold Acute renal failure suspect due to poor oral intake hypovolumic Severe electrolyte abnormality Hyperkalemia and hypomagnesemia persist Mild aortic stenosis per echo 2015 Echocardiogram September 2016 EF 50-55% with moderate pulmonary hypertension and valvular heart disease Chronic diastolic congestive heart failure no evidence on chest x-ray acute exacerbation compensated Acute on chronic complete vaginal prolapse Hyperglycemic episodes suspect steroid-induced Type 2 diabetes insulin requiring Episodes of severe electrolyte hypo-magnesium and hypokalemic Mild protein calorie malnutrition suspect due to poor caloric intake underweight BMI 20 Mild hypernatremia Failure to thrive Physically debilitated inability to participate in ADLs bedbound Present on admission atrial fibrillation with rapid ventricular response resolved Chronic persistent permanent atrial fibrillation The above dictated assessment and findings were discussed with dr poli Tolentino and the plan of care have been dictated as directed. Chloe Reddy nurse practitioner acting as a scribe for dr ashton Plan - Discharge Summary New Discharge Prescriptions: Atropine Ophth Soln 1% 5Ml [Isopto Atropine 1% 5Ml] 2 drop SUBLINGUAL Q4H #1 bottle LORazepam [Ativan] 1 mg PO Q4H PRN #30 tablet PRN Reason: Agitation Morphine Oral Soln [Roxanol Oral Soln Conc 20MG/ML] 20 mg PO Q4HR PRN #30 ml PRN Reason: Agitation Discharge Medication List Acetaminophen Tab [Tylenol] 650 mg PO Q6HR PRN #0 tab 01/05/17 [Rx] Atropine Ophth Soln 1% 5Ml [Isopto Atropine 1% 5Ml] 2 drop SUBLINGUAL Q4H #1 bottle 01/05/17 [Rx] Ipratropium-Albuterol Nebulize [Duoneb 0.5 mg-3 mg/3 ml Soln] 3 ml INHALATION RT -QID ampul.neb 01/05/17 [Rx] LORazepam [Ativan] 1 mg PO Q4H PRN #30 tablet 01/05/17 [Rx] Morphine Oral Soln [Roxanol Oral Soln Conc 20MG/ML] 20 mg PO Q4HR PRN #30 ml 07/14 [Rx] Follow up Appointment(s)/Referral(s): Scott Juarez MD [STAFF PHYSICIAN] - 1 Week To Ashton MD [Primary Care Provider] - 1-2 days Discharge Disposition: DISCH TO [facility]
[2017-01-05 12:26] VITALS: PULSE 78
--- NOTE | 2017-01-05 18:40 | PN ---
DATE OF SERVICE: 01/05/2017 REASON FOR FOLLOWUP: Haemophilus influenzae pneumonia. INTERVAL HISTORY: The patient is afebrile. She is more awake and alert today. She is breathing comfortably. Denies having any significant chest pain. No cough or abdominal pain. No diarrhea has been noticed. On examination, blood pressure 151/66 with a pulse of 93, temperature 98.4. She is 96% on room air. General description is an elderly female up in the bed in no distress. RESPIRATORY SYSTEM: Unlabored breathing. Clear to auscultation anteriorly. HEART: S1, S2. Regular rate and rhythm. ABDOMEN: Soft. No tenderness. LABS: No CBC was done today. DIAGNOSTIC IMPRESSION AND PLAN: Patient with Haemophilus influenzae pneumonia, adequately being treated. Patient has received about 7 days of therapy with Rocephin. Plan to finish therapy with a week of p.o. Ceftin with close outpatient followup.
--- NOTE | 2017-01-05 23:17 | PN ---
Patient is seen for follow-up for acute kidney and renal function has improved significantly. Currently the patient is lying in bed. She is comfortable. She is not in any acute distress. She is maintained on IV fluids. On examination, blood pressure is 151/66, heart rate of 93 per minute. She is afebrile. Examination of the heart S1 and S2. Examination of the lungs: Bilateral breath sounds are heard. Lower extremities shows no significant edema. REALTY LOAN SPECIALIST exam is grossly intact. Labs from yesterday shows a creatinine of 1.19, sodium 141, potassium 3.6. ASSESSMENT: 1. Acute kidney injury, acute tubular necrosis, currently significantly improved. 2. Hyponatremia, currently resolved. 3. Generalized debility. 4. Edema plus influenza pneumonia and sepsis, now resolved. PLAN: Continue to encourage increased oral intake. Follow-up labs as outpatient.
== END 2017-01-05 16:15 | disposition hospice, inpatient (51) | DRG 871 ==
LOC: EC 13:26 → 5MS5E 16:35 → 6SEL 19:07 → 5MS5E 12-28 10:34 → 6ICU 12-29 21:07 → 5MS5E 12-31 14:55
PROVIDERS: ADMIT Family Medicine; ATTEND Family Medicine
DX: A41.3 Sepsis due to Hemophilus influenzae (principal); N17.0 Acute kidney failure with tubular necrosis; J96.21 Acute and chronic respiratory failure with hypoxia; J14 Pneumonia due to Hemophilus influenzae; G93.40 Encephalopathy, unspecified; I13.0 Hypertensive heart and chronic kidney disease with heart failure and stage 1 through stage 4 chronic kidney disease, or unspecified chronic kidney disease; I47.2 Ventricular tachycardia; E87.0 Hyperosmolality and hypernatremia; I48.1 Persistent atrial fibrillation; I50.32 Chronic diastolic (congestive) heart failure; J44.0 Chronic obstructive pulmonary disease with (acute) lower respiratory infection; E87.2 Acidosis; N39.0 Urinary tract infection, site not specified; E87.1 Hypo-osmolality and hyponatremia; J44.1 Chronic obstructive pulmonary disease with (acute) exacerbation; E44.1 Mild protein-calorie malnutrition; Z66 Do not resuscitate; E11.22 Type 2 diabetes mellitus with diabetic chronic kidney disease; E86.0 Dehydration; I27.2 Other secondary pulmonary hypertension; E11.65 Type 2 diabetes mellitus with hyperglycemia; E87.5 Hyperkalemia; E83.39 Other disorders of phosphorus metabolism; E83.42 Hypomagnesemia; E83.51 Hypocalcemia; I35.0 Nonrheumatic aortic (valve) stenosis; R65.20 Severe sepsis without septic shock; N18.9 Chronic kidney disease, unspecified; J20.9 Acute bronchitis, unspecified; T38.0X5A Adverse effect of glucocorticoids and synthetic analogues, initial encounter; I25.10 Atherosclerotic heart disease of native coronary artery without angina pectoris; E87.6 Hypokalemia; J45.909 Unspecified asthma, uncomplicated; R62.7 Adult failure to thrive; E78.5 Hyperlipidemia, unspecified; N81.4 Uterovaginal prolapse, unspecified; R79.1 Abnormal coagulation profile; Z85.3 Personal history of malignant neoplasm of breast; Z95.0 Presence of cardiac pacemaker; Z90.49 Acquired absence of other specified parts of digestive tract; Z74.01 Bed confinement status; Z88.0 Allergy status to penicillin; Z87.892 Personal history of anaphylaxis; Z79.01 Long term (current) use of anticoagulants; Z79.84 Long term (current) use of oral hypoglycemic drugs; Z79.899 Other long term (current) drug therapy
CPT/HCPCS: 36415; 71010; 71020; 71260; 76770; 80048; 80053; 81001; 82272; 82306; 83036; 83605; 83735; 83880; 84100; 84132; 84484; 85025; 85379; 85610; 87040; 87070; 87081; 87086; 87205; 87430; 87502; 93005; 94640; 94760; 96361; 96365; 96375; 99285